=== PATIENT | female | born 1960 | race Two or more races ===

== ENCOUNTER 2021-11-26 14:00 | Outpatient (RCR) | payer BC, SELFPAY | END 2021-12-03 15:18 | disposition home or self-care (01) | LOC: HO.PT 14:00 | PROVIDERS: PCP Internal Medicine; Visit Provider Internal Medicine Rheumatology | DX: M17.0 Bilateral primary osteoarthritis of knee (principal) | CPT/HCPCS: 97110; 97140; 97162; 97530 ==

== ENCOUNTER → 2022-12-12 15:17 | Outpatient (BNVA) | payer BC, SELFPAY | PROVIDERS: PCP Internal Medicine; Visit Provider Student in an Organized Health Care Education/Training Program | DX: Z13.89 Encounter for screening for other disorder (principal) ==

== ENCOUNTER 2022-12-13 11:59 | Emergency (ER) | payer BC, SELFPAY ==
--- NOTE | ~2022-12-13 | XR_ITS ---
EXAMINATION: XR ANKLE, RIGHT XR FOOT, RIGHT CLINICAL INFORMATION: Pain COMPARISON: None TECHNIQUE: 2 views of the right ankle. 3 views of the right foot. FINDINGS: Right ankle: No acute fracture or dislocation. Spurring along the ankle mortise which is congruent. There is corticated ossification at the tip of the lateral malleolus, likely associated with prior trauma. The soft tissues are unremarkable. Right foot: No fracture or dislocation. Alignment maintained. Joint spaces maintained. The soft tissues are unremarkable. Mild hypertrophic spurring at the plantar aponeurosis and Achilles insertion to the calcaneus. XR/XR ankle RT min 3V IMPRESSION: No acute abnormality of the right ankle or foot. Calcaneal spurs.
--- NOTE | ~2022-12-13 | XR_ITS ---
EXAMINATION: XR ANKLE, RIGHT XR FOOT, RIGHT CLINICAL INFORMATION: Pain COMPARISON: None TECHNIQUE: 2 views of the right ankle. 3 views of the right foot. FINDINGS: Right ankle: No acute fracture or dislocation. Spurring along the ankle mortise which is congruent. There is corticated ossification at the tip of the lateral malleolus, likely associated with prior trauma. The soft tissues are unremarkable. Right foot: No fracture or dislocation. Alignment maintained. Joint spaces maintained. The soft tissues are unremarkable. Mild hypertrophic spurring at the plantar aponeurosis and Achilles insertion to the calcaneus. XR/XR foot RT min 3V IMPRESSION: No acute abnormality of the right ankle or foot. Calcaneal spurs.
--- NOTE | ~2022-12-13 | XR_ITS ---
EXAMINATION: CHEST 2 VIEWS CLINICAL INFORMATION: cough dyspnea . COMPARISON: No recent pertinent prior studies are available for comparison. TECHNIQUE: PA and lateral views of the chest obtained. FINDINGS: The lungs are well expanded. No focal infiltrate, effusion, edema, or pneumothorax. Cardiac and mediastinal silhouettes are within normal limits for technique. No acute bony abnormality seen. Degenerative changes in the acromioclavicular joints XR/XR chest 2V IMPRESSION: No evidence of acute disease.
[2022-12-13 12:25] VITALS: BP 135/90; PULSE 97; RESP 18; TEMP 36.8; O2SAT 100; BMI 36.7
--- NOTE | 2022-12-13 12:29 | ED_ITS ---
HPI - General Adult General Chief complaint: Extremity Problem <LOUIE Murrell - Last Filed: 12/20/22 14:26> Stated complaint: Polychondritis Diff Walking <LOUIE Murrell - Last Filed: 12/20/22 14:26> Time Seen by Provider: 12/13/22 22:07 <LOUIE Murrell - Last Filed: 12/20/22 14:26> Related Data Home medications: Home Medications Medication Instructions Recorded Confirmed acetaminophen 325 mg tablet 650 mg PO Q4H PRN 12/11/22 12/12/22 (Tylenol) albuterol sulfate 2.5 mg/3 mL 2.5 mg inhalation Q4-6H PRN 12/11/22 12/12/22 (0.083 %) solution for nebulization albuterol sulfate 90 mcg/actuation 2 puff inhalation Q6H PRN 12/11/22 12/12/22 aerosol inhaler (ProAir HFA) epinephrine 0.3 mg/0.3 mL 0.3 mg IM Q4H PRN 12/11/22 12/12/22 injection, auto-injector (EpiPen) montelukast 10 mg tablet 10 mg PO DAILY 12/11/22 12/12/22 (Singulair) budesonide 160 mcg-glycopyr 9 2 inh inhalation BID 12/12/22 12/12/22 mcg-formot 4.8 mcg/actuation HFA inhaler (Breztri Aerosphere) Previous Rx's Medication Instructions Recorded diclofenac sodium 1 % topical gel 2 g topical QID #100 grams 12/12/22 (Arthritis Pain (diclofenac)) prednisone 20 mg tablet 60 mg PO DAILY #90 tabs 12/12/22 tramadol 50 mg tablet 50 mg PO BID PRN pain #7 tabs 12/13/22 <LOUIE Murrell - Last Filed: 12/20/22 14:26> Allergies/adverse reactions: Allergies Allergy/AdvReac Type Severity Reaction Status Date / Time No Known Allergies Allergy Unverified 12/12/22 15:24 Pt states no known allergy to Allergy Unknown Unknown Uncoded 12/12/22 15:24 <LOUIE Murrell - Last Filed: 12/20/22 14:26> [facility] Past Medical History Medical History: Medical History Asthma Chronic back pain GERD (gastroesophageal reflux disease) Heart palpitations 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 Obesity SAMIRA (obstructive sleep apnea) <LOUIE Murrell - Last Filed: 12/20/22 14:26> Surgical History: Surgical History H/O tubal ligation <LOUIE Murrell - Last Filed: 12/20/22 14:26> Family History Family History: Family History Mother Diabetes Rheumatoid arthritis Father Asthma <LOUIE Murrell - Last Filed: 12/20/22 14:26> Social History Social History: Social History Household Members: Children Alcohol intake: never Patient Tobacco Use Status: Former Tobacco user Current occupational status: employed 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 Please see the patient's hand hose cutter notes on 12/12/2022 in our system that was scanned in. Apparently he ordered multiple labs and imaging yesterday. Plan: Will obtain labs, chest x-ray, COVID/RSV/flu swab an EKG. Patient will be sent to the waiting room to be evaluated in the ED. <LOUIE Murrell - Last Filed: 12/20/22 14:26> Medical Decision Making Lab Data Result Diagrams: 12/13/22 13:35 12/13/22 13:35 <LOUIE Murrell - Last Filed: 12/20/22 14:26> Labs: Lab Results 12/13/22 12/13/22 12/13/22 Range/Units 13:35 13:35 13:35 WBC 9.3 (4.8-10.8) X10*3/uL RBC 4.33 (4.20-5.50) X10*6/uL Hgb 12.6 (12.0-16.0) g/dl Hct 38.3 (37.0-47.0) % MCV 88.5 (80.0-98.0) fL MCH 29.1 (27.0-33.0) pg MCHC 32.9 (31.0-35.0) g/dl RDW 12.5 (11.0-16.0) % Plt Count 287 (160-400) X10*3/uL MPV 10.4 (9.4-12.3) fL Immature Gran % (Auto) 0.2 (0.0-0.4) % Neut % (Auto) 63.2 (45-73) % Lymph % (Auto) 25.3 (20-40) % Shannon % (Auto) 8.4 (2-11) % Eos % (Auto) 2.4 (0-4) % Baso % (Auto) 0.5 (0-2) % Lymph # (Auto) 2.4 (1.2-4.9) X10*3/uL Shannon # (Auto) 0.8 (0.1-1.2) X10*3/uL Eos # (Auto) 0.2 (0.0-0.4) X10*3/uL Baso # (Auto) 0.1 (0.0-0.2) X10*3/uL Abs Immat Gran (auto) 0.02 (0.00-0.03) X10*3/uL Absolute Neuts (auto) 5.9 (2.0-8.3) x10*3/uL Absolute Nucleated RBC 0.000 (0.0-0.012) X10*3/uL Nucleated RBC % (auto) 0.0 (0.0-0.2) /100WBC ESR 34 H (0-20) MM/HR PT (10.0-13.1) SEC INR (0.9-1.1) Sodium 141 (135-145) mmol/L Potassium 3.8 (3.3-5.1) mmol/L Chloride 105 (96-108) mmol/L Carbon Dioxide 29 (22-29) mmol/L Anion Gap 11 L (12-20) BUN 18 H (9-16) mg/dL Creatinine 0.80 (0.5-1.4) mg/dL Estim Creat Clear Calc 76.5 Estimated GFR > 60 Random Glucose 74 (60-115) mg/dL Calcium 9.3 (8.4-10.2) mg/dL Magnesium 2.0 (1.6-2.6) mg/dL Total Bilirubin 0.5 (0.0-1.0) mg/dL AST 21 (5-31) U/L ALT 15 (0-31) U/L Alkaline Phosphatase 109 (39-117) U/L Total Creatine Kinase 184 H (26-140) U/L C-Reactive Protein 1.98 H (< or = 0.50) mg/dL Total Protein 7.3 (6.5-8.0) g/dL Albumin 4.0 (3.5-5.0) g/dL Lipase 44 (8-78) U/L TSH 2.06 (0.32-4.0) uIU/mL 12/13/22 Range/Units 13:35 WBC (4.8-10.8) X10*3/uL RBC (4.20-5.50) X10*6/uL Hgb (12.0-16.0) g/dl Hct (37.0-47.0) % MCV (80.0-98.0) fL MCH (27.0-33.0) pg MCHC (31.0-35.0) g/dl RDW (11.0-16.0) % Plt Count (160-400) X10*3/uL MPV (9.4-12.3) fL Immature Gran % (Auto) (0.0-0.4) % Neut % (Auto) (45-73) % Lymph % (Auto) (20-40) % Shannon % (Auto) (2-11) % Eos % (Auto) (0-4) % Baso % (Auto) (0-2) % Lymph # (Auto) (1.2-4.9) X10*3/uL Shannon # (Auto) (0.1-1.2) X10*3/uL Eos # (Auto) (0.0-0.4) X10*3/uL Baso # (Auto) (0.0-0.2) X10*3/uL Abs Immat Gran (auto) (0.00-0.03) X10*3/uL Absolute Neuts (auto) (2.0-8.3) x10*3/uL Absolute Nucleated RBC (0.0-0.012) X10*3/uL Nucleated RBC % (auto) (0.0-0.2) /100WBC ESR (0-20) MM/HR PT 11.7 (10.0-13.1) SEC INR 1.0 (0.9-1.1) Sodium (135-145) mmol/L Potassium (3.3-5.1) mmol/L Chloride (96-108) mmol/L Carbon Dioxide (22-29) mmol/L Anion Gap (12-20) BUN (9-16) mg/dL Creatinine (0.5-1.4) mg/dL Estim Creat Clear Calc Estimated GFR Random Glucose (60-115) mg/dL Calcium (8.4-10.2) mg/dL Magnesium (1.6-2.6) mg/dL Total Bilirubin (0.0-1.0) mg/dL AST (5-31) U/L ALT (0-31) U/L Alkaline Phosphatase (39-117) U/L Total Creatine Kinase (26-140) U/L C-Reactive Protein (< or = 0.50) mg/dL Total Protein (6.5-8.0) g/dL Albumin (3.5-5.0) g/dL Lipase (8-78) U/L TSH (0.32-4.0) uIU/mL <LOUIE Murrell - Last Filed: 12/20/22 14:26> Lab Results 12/13/22 12/13/22 12/13/22 Range/Units 13:35 13:35 13:35 WBC 9.3 (4.8-10.8) X10*3/uL RBC 4.33 (4.20-5.50) X10*6/uL Hgb 12.6 (12.0-16.0) g/dl Hct 38.3 (37.0-47.0) % MCV 88.5 (80.0-98.0) fL MCH 29.1 (27.0-33.0) pg MCHC 32.9 (31.0-35.0) g/dl RDW 12.5 (11.0-16.0) % Plt Count 287 (160-400) X10*3/uL MPV 10.4 (9.4-12.3) fL Immature Gran % (Auto) 0.2 (0.0-0.4) % Neut % (Auto) 63.2 (45-73) % Lymph % (Auto) 25.3 (20-40) % Shannon % (Auto) 8.4 (2-11) % Eos % (Auto) 2.4 (0-4) % Baso % (Auto) 0.5 (0-2) % Lymph # (Auto) 2.4 (1.2-4.9) X10*3/uL Shannon # (Auto) 0.8 (0.1-1.2) X10*3/uL Eos # (Auto) 0.2 (0.0-0.4) X10*3/uL Baso # (Auto) 0.1 (0.0-0.2) X10*3/uL Abs Immat Gran (auto) 0.02 (0.00-0.03) X10*3/uL Absolute Neuts (auto) 5.9 (2.0-8.3) x10*3/uL Absolute Nucleated RBC 0.000 (0.0-0.012) X10*3/uL Nucleated RBC % (auto) 0.0 (0.0-0.2) /100WBC ESR 34 H (0-20) MM/HR PT (10.0-13.1) SEC INR (0.9-1.1) Sodium 141 (135-145) mmol/L Potassium 3.8 (3.3-5.1) mmol/L Chloride 105 (96-108) mmol/L Carbon Dioxide 29 (22-29) mmol/L Anion Gap 11 L (12-20) BUN 18 H (9-16) mg/dL Creatinine 0.80 (0.5-1.4) mg/dL Estim Creat Clear Calc 76.5 Estimated GFR > 60 Random Glucose 74 (60-115) mg/dL Calcium 9.3 (8.4-10.2) mg/dL Magnesium 2.0 (1.6-2.6) mg/dL Total Bilirubin 0.5 (0.0-1.0) mg/dL AST 21 (5-31) U/L ALT 15 (0-31) U/L Alkaline Phosphatase 109 (39-117) U/L Total Creatine Kinase 184 H (26-140) U/L C-Reactive Protein 1.98 H (< or = 0.50) mg/dL Total Protein 7.3 (6.5-8.0) g/dL Albumin 4.0 (3.5-5.0) g/dL Lipase 44 (8-78) U/L TSH 2.06 (0.32-4.0) uIU/mL 12/13/22 Range/Units 13:35 WBC (4.8-10.8) X10*3/uL RBC (4.20-5.50) X10*6/uL Hgb (12.0-16.0) g/dl Hct (37.0-47.0) % MCV (80.0-98.0) fL MCH (27.0-33.0) pg MCHC (31.0-35.0) g/dl RDW (11.0-16.0) % Plt Count (160-400) X10*3/uL MPV (9.4-12.3) fL Immature Gran % (Auto) (0.0-0.4) % Neut % (Auto) (45-73) % Lymph % (Auto) (20-40) % Shannon % (Auto) (2-11) % Eos % (Auto) (0-4) % Baso % (Auto) (0-2) % Lymph # (Auto) (1.2-4.9) X10*3/uL Shannon # (Auto) (0.1-1.2) X10*3/uL Eos # (Auto) (0.0-0.4) X10*3/uL Baso # (Auto) (0.0-0.2) X10*3/uL Abs Immat Gran (auto) (0.00-0.03) X10*3/uL Absolute Neuts (auto) (2.0-8.3) x10*3/uL Absolute Nucleated RBC (0.0-0.012) X10*3/uL Nucleated RBC % (auto) (0.0-0.2) /100WBC ESR (0-20) MM/HR PT 11.7 (10.0-13.1) SEC INR 1.0 (0.9-1.1) Sodium (135-145) mmol/L Potassium (3.3-5.1) mmol/L Chloride (96-108) mmol/L Carbon Dioxide (22-29) mmol/L Anion Gap (12-20) BUN (9-16) mg/dL Creatinine (0.5-1.4) mg/dL Estim Creat Clear Calc Estimated GFR Random Glucose (60-115) mg/dL Calcium (8.4-10.2) mg/dL Magnesium (1.6-2.6) mg/dL Total Bilirubin (0.0-1.0) mg/dL AST (5-31) U/L ALT (0-31) U/L Alkaline Phosphatase (39-117) U/L Total Creatine Kinase (26-140) U/L C-Reactive Protein (< or = 0.50) mg/dL Total Protein (6.5-8.0) g/dL Albumin (3.5-5.0) g/dL Lipase (8-78) U/L TSH (0.32-4.0) uIU/mL <Cooper Ashford MD - Last Filed: 12/26/22 16:31> Attestation Attending Attestation: I reviewed 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 I agree with the documentation, assessment and plan unless otherwise stated. <Cooper Ashford MD - Last Filed: 12/26/22 16:31> Discharge Plan Discharge Clinical Impression: Ankle pain, right, Relapsing polychondritis of multiple sites <LOUIE Murrell - Last Filed: 12/20/22 14:26> Patient Disposition: Home, Self-Care <LOUIE Murrell - Last Filed: 12/20/22 14:26> Instructions: Arthralgia (ED) <LOUIE Murrell - Last Filed: 12/20/22 14:26> Additional Instructions: At this time, I am recommending that you go ahead and increase your p rednisone to 60 mg daily per your hand hose cutter. In addition, he may take ibuprofen 800 mg 3 times a day. I would recommend taking omeprazole with that as well. For additional pain relief tried Tylenol 1000 mg every 6 hours. I will provide you with a small amount of tramadol for additional pain relief. . Please be aware this may cause you to be drowsy. You have been provided with an Aircast for ankle support. I am also recommending the use of a cane or crutches. <LOUIE Murrell - Last Filed: 12/20/22 14:26> Prescriptions: New tramadol 50 mg tablet 50 mg PO BID PRN (Reason: pain) Qty: 7 0RF No Action albuterol sulfate 2.5 mg /3 mL (0.083 %) solution for nebulization 2.5 mg inhalation Q4-6H PRN montelukast [Singulair] 10 mg tablet 10 mg PO DAILY albuterol sulfate [ProAir HFA] 90 mcg/actuation HFA aerosol inhaler 2 puff inhalation Q6H PRN epinephrine [EpiPen] 0.3 mg/0.3 mL auto-injector 0.3 mg IM Q4H PRN acetaminophen [Tylenol] 325 mg tablet 650 mg PO Q4H PRN Breztri Aerosphere 160-9-4.8 mcg/actuation HFA aerosol inhaler 2 inh inhalation BID prednisone 20 mg tablet 60 mg PO DAILY Qty: 90 1RF diclofenac sodium [Arthritis Pain (diclofenac)] 1 % gel 2 g topical QID Qty: 100 1RF Rx Instructions: apply to single elbow, wrist or hand; for hand includes palm/fingers/back of hand <LOUIE Murrell - Last Filed: 12/20/22 14:26> Referrals: Bertrand Christianson MD [Primary Care Provider] - 5 days <LOUIE Murrell - Last Filed: 12/20/22 14:26> Interventions: ED Discharge Assessment Last Done: 12/13/22 23:14 <LOUIE Murrell - Last Filed: 12/20/22 14:26> Discharge Date/Time: 12/13/22 23:15 <LOUIE Murrell - Last Filed: 12/20/22 14:26>
[2022-12-13 13:41] LABS: MANUAL DIFF FLAG NO
[2022-12-13 13:44] LABS: Basophils Absolute Auto 0.1 X10*3/uL (0.0-0.2); Basophils Percent Auto 0.5 % (0-2); Eosinophils Absolute Auto 0.2 X10*3/uL (0.0-0.4); Eosinophils Percent Auto 2.4 % (0-4); Hematocrit 38.3 % (37.0-47.0); Hemoglobin 12.6 g/dl (12.0-16.0); Imm Gran Abs Auto 0.02 X10*3/uL (0.00-0.03); Imm Gran Pct Auto 0.2 % (0.0-0.4); Lymphocytes Absolute Auto 2.4 X10*3/uL (1.2-4.9); Lymphocytes Percent Auto 25.3 % (20-40); Mean Corpuscular HGB Conc 32.9 g/dl (31.0-35.0); Mean Corpuscular Hemoglobin 29.1 pg (27.0-33.0); Mean Corpuscular Volume 88.5 fL (80.0-98.0); Mean Platelet Volume 10.4 fL (9.4-12.3); Monocytes Absolute Auto 0.8 X10*3/uL (0.1-1.2); Monocytes Percent Auto 8.4 % (2-11); Neutrophils Absolute Auto 5.9 x10*3/uL (2.0-8.3); Neutrophils Percent Auto 63.2 % (45-73); Platelet Count 287 X10*3/uL (160-400); Red Blood Count 4.33 X10*6/uL (4.20-5.50); Red Cell Distribution Width 12.5 % (11.0-16.0); White Blood Count 9.3 X10*3/uL (4.8-10.8)
[2022-12-13 14:07] LABS: Prothrombin Time 11.7 SEC (10.0-13.1)
[2022-12-13 14:13] LABS: Alanine Aminotransferase 15 U/L (0-31); Alkaline Phosphatase 109 U/L (39-117); Anion Gap 11 (12-20); Aspartate Amino Transferase 21 U/L (5-31); Bilirubin Total 0.5 mg/dL (0.0-1.0); Blood Urea Nitrogen 18 mg/dL (9-16); C Reactive Protein 1.98 mg/dL (< or = 0.50); Calcium 9.3 mg/dL (8.4-10.2); Carbon Dioxide 29 mmol/L (22-29); Chloride 105 mmol/L (96-108); Creatinine Clr Calc Pharmacy 76.5; Estimated Glomerular Filt Rate > 60; Glucose Random 74 mg/dL (60-115); Lipase 44 U/L (8-78); Potassium 3.8 mmol/L (3.3-5.1); Sodium 141 mmol/L (135-145); Total Protein 7.3 g/dL (6.5-8.0)
[2022-12-13 14:27] LABS: TSH reflex Free T4 2.06 uIU/mL (0.32-4.0)
[2022-12-13 14:36] LABS: Erythrocyte Sedimentation Rate 34 MM/HR (0-20)
[2022-12-13 22:00] VITALS: BP 128/66; PULSE 69; RESP 16; TEMP 36.3; O2SAT 98
--- NOTE | 2022-12-13 22:27 | ED.GENADULT ---
HPI - General Adult General Chief complaint: Extremity Problem Stated complaint: Polychondritis Diff Walking Time Seen by Provider: 12/13/22 22:07 Source: patient Mode of arrival: ambulatory Limitations: no limitations History of Present Illness HPI narrative: 62-year-old female with a reported history of relapsing polychondritis. Patient is currently under the care of a food aide. She presents today with constellation of symptoms including swelling of bilateral ears, sensation of aspiration and right ankle pain. Symptoms have been progressively getting worse. She is currently on steroids and was recommended to increase her prednisone to 60 mg daily. She has not yet started that. Patient describes her symptoms as moderate to severe. She predominantly comes today because of her right ankle pain. She denies any swelling of the right ankle. She denies any trauma. The pain is located just inferior to bilateral malleoli. The pain is worse with ambulation. It does not radiate. It is not associated with numbness or tingling. She denies any falls, injuries further local trauma. Related Data Home Medications Medication Instructions Recorded Confirmed acetaminophen 325 mg tablet 650 mg PO Q4H PRN 12/11/22 12/12/22 (Tylenol) albuterol sulfate 2.5 mg/3 mL 2.5 mg inhalation Q4-6H PRN 12/11/22 12/12/22 (0.083 %) solution for nebulization albuterol sulfate 90 mcg/actuation 2 puff inhalation Q6H PRN 12/11/22 12/12/22 aerosol inhaler (ProAir HFA) epinephrine 0.3 mg/0.3 mL 0.3 mg IM Q4H PRN 12/11/22 12/12/22 injection, auto-injector (EpiPen) montelukast 10 mg tablet 10 mg PO DAILY 12/11/22 12/12/22 (Singulair) budesonide 160 mcg-glycopyr 9 2 inh inhalation BID 12/12/22 12/12/22 mcg-formot 4.8 mcg/actuation HFA inhaler (Breztri Aerosphere) Previous Rx's Medication Instructions Recorded diclofenac sodium 1 % topical gel 2 g topical QID #100 grams 12/12/22 (Arthritis Pain (diclofenac)) prednisone 20 mg tablet 60 mg PO DAILY #90 tabs 12/12/22 tramadol 50 mg tablet 50 mg PO BID PRN pain #7 tabs 12/13/22 Allergies Allergy/AdvReac Type Severity Reaction Status Date / Time No Known Allergies Allergy Unverified 12/12/22 15:24 Pt states no known allergy to Allergy Unknown Unknown Uncoded 12/12/22 15:24 Review of Systems Review of Systems: CONSTITUTIONAL: Denies weight loss, fever and chills. HEENT: Denies changes in vision and hearing. RESPIRATORY: Denies SOB and cough. CV: Denies palpitations no CP. GI: Denies abdominal pain, nausea, vomiting and diarrhea. : Denies dysuria and urinary frequency. MSK: positive myalgia and joint pain. SKIN: Denies rash and pruritus. NEUROLOGICAL: Denies headache and syncope. PSYCHIATRIC: Denies recent changes in mood. Denies anxiety and depression. 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 Physical Exam ED Vital Signs: Vital Signs - 24 hr 12/13/22 12:25 Temperature 98.2 F Pulse Rate 97 Respiratory Rate 18 Blood Pressure 135/90 H Pulse Oximetry 100 Oxygen Delivery Method Room Air BMI result Body Mass Index 36.7 GEN: Well developed, no acute distress, alert, oriented HEENT: Normocephalic, atraumatic, nose appears normal, no oropharyngeal edema or exudates, bilateral external ear swelling consistent with polychondritis Eyes: Normal to appearance Neck: Supple, no lymphadenopathy Respiratory: Talks in complete sentences, no respiratory distress, clear to auscultation bilaterally Cardiovascular: Regular rate and rhythm, no murmurs rubs or gallops Abdomen: Soft, nontender, nondistended, no guarding, no rebound Back: No CVA tenderness Extremities: No clubbing cyanosis or edema Neurologic: No focal neurologic deficits, cranial nerves 2-12 intact, strength is 5/5 bilaterally, gait normal Skin: No rash Course Course Course Narrative: 62-year-old female presents with generalized pains and aches as well as right ankle pain to the point she is unable to ambulate. She denies any falls or trauma. She does have a reported history of polychondritis. She is currently supposed to be on steroids. On my exam, her lungs are clear to auscultation bilaterally despite a concern for aspiration. She also had right ankle pain which there was no definite tenderness, swelling. She heard pulses were intact as were her in sensation. Patient will have laboratory analysis and x-rays obtained. Reevaluation(s) Reevaluation #1: Labwork and x-rays are complete with the exception of a chest x-ray. There are no significant findings today with the exception of mildly elevated inflammatory markers. I will provide the patient with an air cast on her right ankle to help with stability in ambulation. I have also recommended the use of a cane. She will follow-up with her food aide. She will increase her prednisone to 60 mg daily. She will return for any concerning symptoms. Time: 22:31 Medical Decision Making Medical Decision Making MDM Narrative: 62-year-old female presents with generalized pains and aches as well as right ankle pain to the point she is unable to ambulate. She denies any falls or trauma. She does have a reported history of polychondritis. She is currently supposed to be on steroids. On my exam, her lungs are clear to auscultation bilaterally despite a concern for aspiration. She also had right ankle pain which there was no definite tenderness, swelling. She heard pulses were intact as were her in sensation. Patient will have laboratory analysis and x-rays obtained. Differential Diagnosis Differential Diagnoses: The differential diagnosis associated with the presentation includes (Sprain, strain, polychondritis, inflammatory state, rheumatologic disorder, immune disorder) Right ankle pain, polychondritis Admission/Observation Consideration of admission/observation: Escalation of care including admission/observation considered Lab Data [facility] Lab Attestation statement: I reviewed the patient's lab results. 12/13/22 13:35 12/13/22 13:35 Labs: Lab Results 02/10/23 02/10/23 02/10/23 Range/Units 13:35 13:35 13:35 WBC 9.3 (4.8-10.8) X10*3/uL RBC 4.33 (4.20-5.50) X10*6/uL Hgb 12.6 (12.0-16.0) g/dl Hct 38.3 (37.0-47.0) % MCV 88.5 (80.0-98.0) fL MCH 29.1 (27.0-33.0) pg MCHC 32.9 (31.0-35.0) g/dl RDW 12.5 (11.0-16.0) % Plt Count 287 (160-400) X10*3/uL MPV 10.4 (9.4-12.3) fL Immature Gran % (Auto) 0.2 (0.0-0.4) % Neut % (Auto) 63.2 (45-73) % Lymph % (Auto) 25.3 (20-40) % Person % (Auto) 8.4 (2-11) % Eos % (Auto) 2.4 (0-4) % Baso % (Auto) 0.5 (0-2) % Lymph # (Auto) 2.4 (1.2-4.9) X10*3/uL Person # (Auto) 0.8 (0.1-1.2) X10*3/uL Eos # (Auto) 0.2 (0.0-0.4) X10*3/uL Baso # (Auto) 0.1 (0.0-0.2) X10*3/uL Abs Immat Gran (auto) 0.02 (0.00-0.03) X10*3/uL Absolute Neuts (auto) 5.9 (2.0-8.3) x10*3/uL Absolute Nucleated RBC 0.000 (0.0-0.012) X10*3/uL Nucleated RBC % (auto) 0.0 (0.0-0.2) /100WBC ESR 34 H (0-20) MM/HR PT (10.0-13.1) SEC INR (0.9-1.1) Sodium 141 (135-145) mmol/L Potassium 3.8 (3.3-5.1) mmol/L Chloride 105 (96-108) mmol/L Carbon Dioxide 29 (22-29) mmol/L Anion Gap 11 L (12-20) BUN 18 H (9-16) mg/dL Creatinine 0.80 (0.5-1.4) mg/dL Estim Creat Clear Calc 76.5 Estimated GFR > 60 Random Glucose 74 (60-115) mg/dL Calcium 9.3 (8.4-10.2) mg/dL Magnesium 2.0 (1.6-2.6) mg/dL Total Bilirubin 0.5 (0.0-1.0) mg/dL AST 21 (5-31) U/L ALT 15 (0-31) U/L Alkaline Phosphatase 109 (39-117) U/L Total Creatine Kinase 184 H (26-140) U/L C-Reactive Protein 1.98 H (< or = 0.50) mg/dL Total Protein 7.3 (6.5-8.0) g/dL Albumin 4.0 (3.5-5.0) g/dL Lipase 44 (8-78) U/L TSH 2.06 (0.32-4.0) uIU/mL 12/13/22 Range/Units 13:35 WBC (4.8-10.8) X10*3/uL RBC (4.20-5.50) X10*6/uL Hgb (12.0-16.0) g/dl Hct (37.0-47.0) % MCV (80.0-98.0) fL MCH (27.0-33.0) pg MCHC (31.0-35.0) g/dl RDW (11.0-16.0) % Plt Count (160-400) X10*3/uL MPV (9.4-12.3) fL Immature Gran % (Auto) (0.0-0.4) % Neut % (Auto) (45-73) % Lymph % (Auto) (20-40) % Person % (Auto) (2-11) % Eos % (Auto) (0-4) % Baso % (Auto) (0-2) % Lymph # (Auto) (1.2-4.9) X10*3/uL Person # (Auto) (0.1-1.2) X10*3/uL Eos # (Auto) (0.0-0.4) X10*3/uL Baso # (Auto) (0.0-0.2) X10*3/uL Abs Immat Gran (auto) (0.00-0.03) X10*3/uL Absolute Neuts (auto) (2.0-8.3) x10*3/uL Absolute Nucleated RBC (0.0-0.012) X10*3/uL Nucleated RBC % (auto) (0.0-0.2) /100WBC ESR (0-20) MM/HR PT 11.7 (10.0-13.1) SEC INR 1.0 (0.9-1.1) Sodium (135-145) mmol/L Potassium (3.3-5.1) mmol/L Chloride (96-108) mmol/L Carbon Dioxide (22-29) mmol/L Anion Gap (12-20) BUN (9-16) mg/dL Creatinine (0.5-1.4) mg/dL Estim Creat Clear Calc Estimated GFR Random Glucose (60-115) mg/dL Calcium (8.4-10.2) mg/dL Magnesium (1.6-2.6) mg/dL Total Bilirubin (0.0-1.0) mg/dL AST (5-31) U/L ALT (0-31) U/L Alkaline Phosphatase (39-117) U/L Total Creatine Kinase (26-140) U/L C-Reactive Protein (< or = 0.50) mg/dL Total Protein (6.5-8.0) g/dL Albumin (3.5-5.0) g/dL Lipase (8-78) U/L TSH (0.32-4.0) uIU/mL Independent Interpretation I performed an independent interpretation of an: Plain X-Ray (Right foot and ankle, no acute fracture or dislocation, chest x-ray no acute cardiopulmonary disease) Radiology Impression Discussion of test interpretation with radiology: I have reviewed the radiologist's reading. (IMPRESSION: No acute abnormality of the right ankle or foot. Calcaneal spurs. Dictated By:Caleb Vidal MDSigned By:<Electronically signed by Caleb Vidal MD in [place]>12/13/22 1321) External Record Review External record reviewed: Office record (Rheumatology visit from yesterday) Prescription Management I considered prescription management with: Pain Medication Discharge Plan Discharge Clinical Impression: Ankle pain, right, Relapsing polychondritis of multiple sites Patient Disposition: Home, Self-Care Instructions: Arthralgia (ED) Additional Instructions: At this time, I am recommending that you go ahead and increase your prednisone to 60 mg daily per your food aide. In addition, he may take ibuprofen 800 mg 3 times a day. I would recommend taking omeprazole with that as well. For additional pain relief tried Tylenol 1000 mg every 6 hours. I will provide you with a small amount of tramadol for additional pain relief. . Please be aware this may cause you to be drowsy. You have been provided with an Aircast for ankle support. I am also recommending the use of a cane or crutches. Prescriptions: New tramadol 50 mg tablet 50 mg PO BID PRN (Reason: pain) Qty: 7 0RF No Action albuterol sulfate 2.5 mg /3 mL (0.083 %) solution for nebulization 2.5 mg inhalation Q4-6H PRN montelukast [Singulair] 10 mg tablet 10 mg PO DAILY albuterol sulfate [ProAir HFA] 90 mcg/actuation HFA aerosol inhaler 2 puff inhalation Q6H PRN epinephrine [EpiPen] 0.3 mg/0.3 mL auto-injector 0.3 mg IM Q4H PRN acetaminophen [Tylenol] 325 mg tablet 650 mg PO Q4H PRN Breztri Aerosphere 160-9-4.8 mcg/actuation HFA aerosol inhaler 2 inh inhalation BID prednisone 20 mg tablet 60 mg PO DAILY Qty: 90 1RF diclofenac sodium [Arthritis Pain (diclofenac)] 1 % gel 2 g topical QID Qty: 100 1RF Rx Instructions: apply to single elbow, wrist or hand; for hand includes palm/fingers/back of hand Referrals: Bertrand Christianson MD [Primary Care Provider] - 5 days
--- OUTSIDE RECORDS SUMMARY | 2022-12-13 22:44 | XMS_ITS ---
:1960 Author Organization [facility] Address [address] [place] [address] Care Team Providers Name Role Phone TATI STEVENS Unavailable Unavailable PROBLEMS Type Condition ICD9-CM [id number] Onset Condition SNOMED Cod e Code Code Dates Status Problem Body mass index Z68.37 Active 4433 91360052753 (BMI) 37.0-37.9, adult Problem Body mass index Z68.36 Active 4433 [id number] [BMI] 36.0-36.9, adult Problem Moderate J45.40 Active 594560929 persistent asthma, uncomplicated Problem Mild persistent J45.30 Active 7075 65192 asthma, uncomplicated Problem Morbid (severe) E66.01 Active 2381 98482 obesity due to excess calories Problem Body mass index Z68.38 Active 4433 [id number] (BMI) 38.0-38.9, adult ALLERGIES No Known Allergies ENCOUNTERS Encounter Location Date Diagnosis [address] May, Dietary counseling and [place] surveillance Z71 .3 and [address] Morbid (severe) obesity due to excess calori es E66.01 [facility] [address] [facility] May, [place] [address] [facility] [address] [facility] May, Dietary counseling and [facility] [place] surveillance Z71 .3 and Body [address] mass index [BMI] 36.0-36.9, adult Z68.[address] Apr, Dietary counseling and [place] surveillance Z71 .3 and Body [address] mass index [BMI] 36.0-36.9, adult Z68.[address] Apr, [place], [place] [address] Feb, [place], [place] [address] Jan, Dietary counseling and [place], [place] surveillance Z71 .3 and Body [address] mass index (BMI) 37.0-37.9, adult Z68.[address] Jan, [place], [place] [address] Dec, Dietary counseling and [place], [place] surveillance Z71 .3 and Body [address] mass index (BMI) 38.0-38.9, adult Z68.[address] Dec, [place] [address] Nov, Dietary counseling and [place], [place] surveillance Z71 .3 and [address] Morbid (severe) obesity due to excess calori es E66.[address] Oct, Dietary counseling and [place], [place] surveillance Z71 .3 ; Morbid [address] (severe) obesity due to excess calories E66.01 and Moderate persist ent asthma, uncomplicated J4 5.40 IMMUNIZATIONS No Known Immunizations SOCIAL HISTORY Qualifiers Date Never Smoker REASON FOR REFERRAL FUNCTIONAL STATUS PLAN OF CARE Activity Details Follow Up 4 Weeks Reason: Future Appointment Provider Name:TATI STEVENS , 2022-12-19 03:45:00 PM, [address] [place] [address], , Future Test COMPREHENSIVE METABOLIC PANE L 20211030 Future Test LIPID PANEL 20211030 Future Test TSH WITH REFLEX TO FT4 Future Test HEMOGLOBIN A1C 20211030 Future Test MAGNESIUM 20211030 VITAL SIGNS Temperature 96.1 degrees Fahrenheit 2022-04-25 Temperature 96 degrees Fahrenheit 2022-01-28 Temperature 96.9 degrees Fahrenheit 2021-12-27 Temperature 97.3 degrees Fahrenheit 2021-11-29 Temperature 97.3 degrees Fahrenheit 2021-10-29 Heart Rate 91 /min 2022-05-21 Heart Rate 91 /min 2022-04-25 Heart Rate 96 /min 2022-01-28 Heart Rate 92 /min 2021-12-27 Heart Rate 82 /min 2021-11-29 Heart Rate 95 /min 2021-10-29 Weight 201 lbs 2022-05-21 Weight 200 lbs 2022-04-25 Weight 204 lbs 2022-01-28 Weight 212 lbs 2021-12-27 Weight 217 lbs 2021-11-29 Weight 217 lbs 2021-10-29 BMI 36.76 kg/m2 2022-05-21 BMI 36.58 kg/m2 2022-04-25 BMI 37.31 kg/m2 2022-01-28 BMI 38.77 kg/m2 2021-12-27 BMI 39.69 kg/m2 2021-11-29 BMI 39.69 kg/m2 2021-10-29 Height 62 in 2022-05-21 Height 62 in 2022-04-25 Height 62 in 2022-01-28 Height 62 in 2021-12-27 Height 5'2 in 2021-11-29 Height 5'2 in 2021-10-29 Oximetry 98 % 2022-05-21 Oximetry 99 % 2022-04-25 Oximetry 98 % 2022-01-28 Oximetry 99 % 2021-12-27 Oximetry 97 % 2021-11-29 Oximetry 97 % 2021-10-29 Blood pressure systolic 130 mm Hg 2022-05-21 Blood pressure diastolic 86 mm Hg 2022-05-21 MEDICATIONS Medication Instructions Dosage Frequency Start End Date Duration Stat us Date Symbicort Inhalation Once 2 puffs 24h Active 80-4.5 MCG/ACT a day Meloxicam 10 MG Orally Once a 1 capsule 24h Active day Singulair 10 MG Orally Once a 1 tablet 24h A ctive day Albuterol Inhalation every 1 puff as 4h Act yancy Sulfate 108 (90 4 hrs needed Base) MCG/ACT Qsymia 3.75-23 Orally Once a 1 capsule 24h May, 14 days A ctive MG day 2021 predniSONE 10 Orally Once a 1 tablet 24h Act yancy MG day Qsymia 7.5-46 Orally Once a 1 capsule 24h May, 30 days Ac tive MG day 2021 Phentermine HCl Orally Once a 1 capsule 24h May, 28 days Active 15 MG day 2021 PROCEDURES Procedure Date Ordered Result Body Site ELECTROCARDIOGRAM, COMPLETE Oct 29, 2021 P/M SHOE CASER, INDIV 30MIN Oct 29, 2021 RESULTS No Results REASON FOR VISIT Refill, Refill, wm f/up, wm f/u, refill, wm f/u, FYI, wm f/up, F/U obesity, wm consult Insurance Providers [facility] Member Patient Patient Patient Patient Patient Subscriber Subscriber Subscriber Group Insurance Plan Plan Plan Plan ID Relationship Address Phone Name Date of ID Name Date of No Type Insurance Insurance Insurance Coverage to Subscriber Address Phone Name Dates BCBS of [phone] BCBS of self [place] [id number] [facility] [id number] [facility] [address] [facility] [address]
== END 2022-12-13 23:15 | disposition home or self-care (01) ==
PROVIDERS: Physician Assistant Medical; Emergency Provider Emergency Medicine; PCP Internal Medicine
DX: M25.571 Pain in right ankle and joints of right foot (principal); M94.8X7 Other specified disorders of cartilage, ankle and foot; R26.2 Difficulty in walking, not elsewhere classified; Z79.899 Other long term (current) drug therapy; Z87.891 Personal history of nicotine dependence
CPT/HCPCS: 36415; 71046; 73610; 73630; 80053; 82550; 83690; 83735; 84443; 85025; 85610; 85652; 86140; 99284

== ENCOUNTER → 2022-12-20 13:52 | Outpatient (REF) | payer BC, SELFPAY ==
--- NOTE | 2022-12-20 13:55 | CA_ITS ---
Transthoracic Echocardiogram Patient (Last, First, Middle): Ryne Grant, Gender: Female Date of : 1960 Age: 62 Procedure Date: 12/20/2022 Procedure Type: Transthoracic Echocardiogram Location: OP Height: 157.48 cm Weight: 92.99 kg BSA: 1.93 m2 Heart Rate: bpm BP: 130 / 70 mmHg Rigging Helper: TO Referring MD: Sienna Alan MD Symptoms: I42.9 - Cardiomyopathy, unspecified Study Quality: Fair Conclusions: - Normal left ventricular size and systolic function. The visually estimated ejection fraction is between 60-65%. - Normal right ventricular cavity size and systolic function. Findings Left Ventricle Normal left ventricular size and systolic function. The visually estimated ejection fraction is between 60-65%. There is no evidence of regional wall motion abnormalities. Diastolic function is normal for age. There is mild septal asymmetric hypertrophy. Right Ventricle Normal right ventricular cavity size and systolic function. Atria The left atrium is normal in size. The right atrium is normal in size. Aortic Valve Normal aortic valve structure and function. There is no aortic valve stenosis. There is no aortic valve regurgitation. Mitral Valve Normal mitral valve structure and function. There is no mitral valve regurgitation. There is no mitral valve stenosis. Pulmonic Valve The pulmonic valve is likely normal. Tricuspid Valve Normal tricuspid valve structure. There is no tricuspid valve regurgitation. Tricuspid regurgitation envelope is inadequate for calculation of right ventricular systolic pressure. Normal right atrial pressure. Great Vessels All visible segments of the aorta are normal in size. The visualized portions of the pulmonary artery and branches are normal. Venous The inferior vena cava is normal in size and collapses greater than 50% with inspiration. Pericardium/Pleural There is no evidence of pericardial effusion. Prior Study Comparison No prior study available for comparison. Measurements 2D Linear Measurements IVSd: 1.03 0.6-0.9/0.6-1.0 cm LVIDd: 4.26 3.9-5.3/4.2-5.9 cm LVIDd Index: 2.21 2.4-3.2/2.2-3.1 cm/m2 LVIDs: 2.91 2.0-3.6 cm LVPWd: 0.79 0.7-1.1 cm LA Diam: 3.00 2.7-3.8/3.0-4.0 cm LAIDs Index: 1.55 1.5-2.3 cm/m2 LV Mass: 153.81 67-162/88-224 g LV Mass Index: 79.69 43-95/49-115 g/m2 LVOT Diam: 2.00 3.0+(-)1.3 cm 2D Systolic Function EF 4C: 63.00 >55% EF 2C: 61.30 >55% EF BiP: 62.80 >55% Mitral Valve MV Pk E: 0.90 MV PK A: 1.03 MV Decel Time: 202.00 E/A: 0.90 E'Lateral: 12.00 E'Medial: 10.70 E/E' Med: 8.40 E/E' Lat: 7.50 PHT: 59.00 MVA PHT: 3.73 Decel [place]: 4.46 Aortic Valve AoV Pk [place]: 1.72 AoV Mn [place]: 1.21 AoV VTI: 0.35 AoV Pk Grad: 12.00 Aov Mn Grad: 6.00 THA Cont.VTI: 2.08 LVOT LVOT Pk [place]: 1.04 LVOT Mn [place]: 0.78 LVOT VTI: 0.23 LVOT Pk Grad: 4.00 LVOT Mn Grad: 3.00 LVOT Diam: 2.00 LVOT Area: 3.14 Diastolic Function MV Pk E: 0.90 MV Pk A: 1.03 E/A: 0.90 E'Medial: 10.70 E/E' Med: 8.40 E' Laterial: 12.00 E/E' Lat: 7.50 Right Ventricle TAPSE (mm): 24.80 TVS' [place]: 17.70 Tricuspid Valve RA Press: 3.00 Great Vessels Aorta Sinus of Valsalva: 3.03 2.0-3.[address] [place]: 2.22 1.7-3.4 cm Ao Asc: 3.00 2.1-3.4 cm Updated in Other Vendor System with Status of Final Salvador Swanson MD electronically signed on 12/21/2022 5:11:42 PM with status of Final
== END ==
LOC: HO.CARD 13:52
PROVIDERS: Visit Provider Student in an Organized Health Care Education/Training Program
DX: I42.9 Cardiomyopathy, unspecified (principal)
CPT/HCPCS: 93306

== ENCOUNTER 2022-12-30 13:29 | Outpatient (REF) | payer BC, SELFPAY ==
--- NOTE | ~2022-12-30 | CT_ITS ---
EXAMINATION: CT CHEST CLINICAL INFORMATION: M94.1 - Relapsing polychondritis COMPARISON: Chest radiographs 12/13/2022 TECHNIQUE: Multidetector volumetric CT imaging of the chest is performed in the axial plane without contrast. Additional high resolution images are obtained through the upper, mid, and lower zones. Additional 2D reformatted images and additional 3D maximum intensity projection MIP images are generated on the CT workstation and uploaded to PACS. This CT examination was performed using dose optimization techniques as appropriate, variously including the following: *Automated exposure control *Adjustment of mA and/or kV according to patient size (this includes techniques or standardized protocols for targeted exams where dose is matched to indication/reason for exam; i.e. extremities or head) *Use of iterative reconstruction technique DLP: 235 mGy-cm FINDINGS: LUNGS: There is no tracheal, bronchial, or bronchial wall thickening. No tracheal bronchial stenosis or bronchiectasis. No lobar or segmental airspace consolidation or groundglass opacity. No interstitial fibrotic changes. There is a solitary solid right nodule abutting the lateral aspect right oblique fissure with average dimension under 6 mm (series 8/120, coronal 22, sagittal 93). The location and shape may suggest intraparenchymal node. There are no other nodules. MEDIASTINUM: No hilar or mediastinal adenopathy. Heart size normal. No pericardial effusion. Thoracic aorta normal in caliber. CORONARY ARTERY CALCIFICATION: None visualized on this study. PLEURA: There is no pleural effusion. No pleural mass or thickening. AXILLA: No lymphadenopathy. UPPER ABDOMEN: Unremarkable OSSEOUS STRUCTURES: No acute bony abnormality. There are scattered degenerative changes mid and lower thoracic spine. CT/CT chest wo con - High Res IMPRESSION: -Airways unremarkable. No wall thickening or stenosis or bronchiectasis. -Solitary solid nodule under 6 mm abutting the right oblique fissure. The location and shape may suggest intraparenchymal node. Fleischner guidelines below. -Lungs otherwise clear. No interstitial fibrotic changes, infiltrate, or effusion. Reference: The Fleischner Society recommendations for management of incidentally detected pulmonary nodules in adults age 35 and greater are based on average nodule size and patient risk category. The recommendations do not apply to lung cancer screening, patients with immunosuppression, or patients with known primary cancer. Single solid nodule average size < 6 mm: Low Risk Patient: No routine follow-up. High Risk Patient: Optional CT at 12 months. Certain patients at high risk with suspicious nodule morphology, upper lobe location, or both may warrant 12-month follow-up.
== END 2022-12-30 13:30 | disposition home or self-care (01) ==
LOC: HO.CT 13:29
PROVIDERS: PCP Internal Medicine; Visit Provider Student in an Organized Health Care Education/Training Program
DX: M94.1 Relapsing polychondritis (principal)
CPT/HCPCS: 71250

== ENCOUNTER 2023-01-10 14:36 | Outpatient (REF) | payer BC, SELFPAY ==
[2023-01-10 15:11] LABS: MANUAL DIFF FLAG NO
[2023-01-10 15:52] LABS: Appearance Urine Turbid; Color Urine Yellow; Glucose Urine UA Negative (Negative); Leukocyte Esterase Urine Trace (Negative); Nitrite Urine Negative (Negative); Specific Gravity - Urine >= 1.030 (1.005-1.025); UMIC TRIGGER UA YES; Urine Blood Negative (Negative); Urine Ketones Trace mg/dL (Negative); Urine Protein Negative (Neg-Trace)
[2023-01-10 15:54] LABS: Basophils Percent Auto 0.2 % (0-2); Hematocrit 36.7 % (37.0-47.0); Hemoglobin 12.3 g/dl (12.0-16.0); Imm Gran Abs Auto 0.09 X10*3/uL (0.00-0.03); Imm Gran Pct Auto 0.6 % (0.0-0.4); Lymphocytes Absolute Auto 1.2 X10*3/uL (1.2-4.9); Lymphocytes Percent Auto 8.4 % (20-40); Mean Corpuscular HGB Conc 33.5 g/dl (31.0-35.0); Mean Corpuscular Hemoglobin 29.9 pg (27.0-33.0); Mean Corpuscular Volume 89.3 fL (80.0-98.0); Mean Platelet Volume 11.6 fL (9.4-12.3); Monocytes Absolute Auto 0.7 X10*3/uL (0.1-1.2); Monocytes Percent Auto 5.1 % (2-11); Neutrophils Absolute Auto 12.6 x10*3/uL (2.0-8.3); Neutrophils Percent Auto 85.7 % (45-73); Platelet Count 314 X10*3/uL (160-400); Red Blood Count 4.11 X10*6/uL (4.20-5.50); White Blood Count 14.7 X10*3/uL (4.8-10.8)
[2023-01-10 16:04] LABS: Bacteria Urine 2+ (None Seen); Hyaline Casts Urine 0-2 /LPF (0-2); Squamous Epithelial Cell Urine >20 /HPF (0-2)
[2023-01-10 16:09] LABS: Estimated Average Glucose 105 mg/dL; Hemoglobin A1c % 5.3 %
[2023-01-10 16:19] LABS: Creatinine Urine 260.59 mg/dL; Protein/Creatinine Ratio, Ur 0.05 (<0.2); Total Protein Urine Random 13 mg/dL (<12)
[2023-01-10 16:32] LABS: Alanine Aminotransferase 23 U/L (0-31); Alkaline Phosphatase 117 U/L (39-117); Anion Gap 12 (12-20); Aspartate Amino Transferase 22 U/L (5-31); Bilirubin Total 0.3 mg/dL (0.0-1.0); Blood Urea Nitrogen 20 mg/dL (9-16); C Reactive Protein 1.02 mg/dL (< or = 0.50); Calcium 9.2 mg/dL (8.4-10.2); Carbon Dioxide 27 mmol/L (22-29); Chloride 107 mmol/L (96-108); Estimated Glomerular Filt Rate > 60; Glucose Random 112 mg/dL (60-115); Potassium 4.2 mmol/L (3.3-5.1); Sodium 142 mmol/L (135-145); Total Protein 7.3 g/dL (6.5-8.0); Uric Acid 4.2 mg/dL (2.4-5.7)
[2023-01-10 16:34] LABS: Rheumatoid Factor < 13.0 IU/mL (<15.0)
[2023-01-10 16:41] LABS: Erythrocyte Sedimentation Rate 31 MM/HR (0-20)
[2023-01-10 16:46] LABS: TSH reflex Free T4 0.22 uIU/mL (0.32-4.0)
[2023-01-10 17:49] LABS: Free T4 (Free Thyroxine) 0.91 ng/dL (0.71-1.85)
[2023-01-12 20:14] LABS: TS Negative Control Passed; TS Panel A 0; TS Panel B 1; TS Positive Control Passed; TSpotTB Negative (Negative)
[2023-01-13 04:36] LABS: HBS Num1 > 1000.00 mIU/mL (0-7.99); HBc Num1 9.69 S/CO (0.00-0.79); HBsAGNum1 0.29 S/CO (0.00-0.99); Hepatitis A Antibody IgM 0.19 Index (0-0.79); Hepatitis B Surface Antigen Negative (Negative); ~HepC Num1 0.19 S/CO (0.00-0.79); ~Hepatitis A Antibody IgM Nonreactive (Nonreactive); ~Hepatitis B Surface Antibody REACTIVE (Nonreactive); ~Hepatitis C Antibody Nonreactive (Nonreactive)
[2023-01-13 05:30] LABS: HBc Num2 9.65 S/CO; HBc Num3 9.14 S/CO; Hepatitis B Core Antibody Reactive (Nonreactive)
[2023-01-13 15:28] LABS: Anti Nuclear Antibody Screen NEGATIVE (NEGATIVE)
[2023-01-13 21:24] LABS: Anti DNA DS Antibody <1 IU/mL; Antibody to SS-A Antigen <1.0 NEG AI (<1.0 NEG); Antibody to SS-B Antigen <1.0 NEG AI (<1.0 NEG); Myeloperoxidase Antibody <1.0 AI; Proteinase 3 PR3 Antibodies <1.0 AI; SM/Ribonucleoprotein Ab <1.0 NEG AI (<1.0 NEG); Smith Protein <1.0 NEG AI (<1.0 NEG)
[2023-01-14 16:39] LABS: Cyclic Citrullinated Peptide <16 UNITS
[2023-01-15 08:33] LABS: Complement C3 151 mg/dL (83-193)
[2023-01-15 13:13] LABS: DNAds, Crithidia Antibody Negative (Negative)
[2023-01-15 16:43] LABS: IgA 421 mg/dL (70-320); IgG 1752 mg/dL (600-1540); IgM 185 mg/dL (50-300)
[2023-01-15 17:18] LABS: Prot Elec - Alpha1 0.3 g/dL (0.2-0.3); Prot Elec - Alpha2 0.7 g/dL (0.5-0.9); Prot Elec - Beta 1 0.5 g/dL (0.4-0.6); Prot Elec - Beta 2 0.5 g/dL (0.2-0.5); Prot Elec - Gamma 1.4 g/dL (0.8-1.7); Prot Elec - Total Protein 7.3 g/dL (6.1-8.1)
[2023-01-16 05:23] LABS: Beta-2 Glycoprotein IgA 3.9 U/mL (<20.0); Beta-2 Glycoprotein IgG <2.0 U/mL (<20.0); Beta-2 Glycoprotein IgM <2.0 U/mL (<20.0)
[2023-01-16 07:53] LABS: DRVVT 1:1 Mix NOT CORRECTED (CORRECTED); DRVVT 1:1 Mix Interpretation Positive; DRVVT Confirmation Positive (Negative); PTT (LAC) Screen 29 sec (<=40)
[2023-01-16 14:28] LABS: Angiotensin Converting Enzyme 24.8 U/L (9-67)
[2023-01-16 22:39] LABS: Vitamin D 25-OH, D2 <4 ng/mL; Vitamin D 25-OH, D3 26 ng/mL; Vitamin D 25-OH, Total 26 ng/mL (30-100)
[2023-01-17 13:29] LABS: Centromere Protein A Ab <11 SI (<11); Centromere Protein B Ab <11 SI (<11); Fibrillarin Ab <11 SI (<11); PM SCL 100 Ab <11 SI (<11); PM SCL 75 Ab <11 SI (<11); RNA Polymerase III RP11 Ab <11 SI (<11); RNA Polymerase III RP155 Ab <11 SI (<11); SCL-70 Extractable Nuclear Ab <11 SI (<11); Th-To Ab <11 SI (<11); U1 SNRNP RNP 70KD <11 SI (<11); U1 SNRNP RNP A <11 SI (<11); U1 SNRNP RNP C <11 SI (<11)
[2023-01-17 20:53] LABS: Glucose-6-Phosphate Dehydrogen 19.1 U/g Hgb (7.0-20.5)
[2023-01-18 05:13] LABS: Lysozyme, Serum 4.5 mcg/mL (5.0-11.0)
[2023-01-18 14:43] LABS: TPMT Activity 16
[2023-01-26 16:08] LABS: Cardiolipin IgG Ab <2.0 GPL-U/mL (<20.0); Cardiolipin IgM Ab <2.0 MPL-U/mL (<20.0)
== END 2023-01-10 14:37 | disposition home or self-care (01) ==
LOC: HO.LAB 14:36
PROVIDERS: PCP Internal Medicine; Visit Provider Student in an Organized Health Care Education/Training Program
DX: R53.83 Other fatigue (principal); M25.571 Pain in right ankle and joints of right foot; M32.9 Systemic lupus erythematosus, unspecified; M34.9 Systemic sclerosis, unspecified; I77.6 Arteritis, unspecified; D86.9 Sarcoidosis, unspecified; D68.61 Antiphospholipid syndrome; D75.A Glucose-6-phosphate dehydrogenase (G6PD) deficiency without anemia; Z51.81 Encounter for therapeutic drug level monitoring; Z13.21 Encounter for screening for nutritional disorder; Z11.7 Encounter for testing for latent tuberculosis infection; Z11.59 Encounter for screening for other viral diseases; Z13.1 Encounter for screening for diabetes mellitus; Z79.624 Long term (current) use of inhibitors of nucleotide synthesis; Z20.2 Contact with and (suspected) exposure to infections with a predominantly sexual mode of transmission
CPT/HCPCS: 36415; 80053; 81001; 82164; 82306; 82550; 82595; 82657; 82784; 82955; 83036; 84156; 84165; 84182; 84439; 84443; 84550; 85025; 85549; 85597; 85613; 85652; 85730; 86021; 86038; 86039; 86140; 86146; 86147; 86160; 86200; 86225; 86235; 86255; 86334; 86431; 86481; 86704; 86706; 86709; 86803; 87340

== ENCOUNTER → 2023-02-07 14:55 | Outpatient (BNVA) | payer BC, SELFPAY | PROVIDERS: PCP Internal Medicine; Visit Provider Student in an Organized Health Care Education/Training Program | DX: Z31.89 Encounter for other procreative management (principal) ==

== ENCOUNTER 2023-04-02 10:24 | Outpatient (REF) | payer BC, SELFPAY ==
--- NOTE | 2023-04-02 09:45 | EMG_ITS ---
Please see scanned EMG / Nerve Conduction Report. MTDD
== END 2023-04-02 10:25 | disposition home or self-care (01) ==
LOC: HO.NEURO 10:24
PROVIDERS: PCP Internal Medicine; Visit Provider Student in an Organized Health Care Education/Training Program
DX: G57.90 Unspecified mononeuropathy of unspecified lower limb (principal); M79.604 Pain in right leg; M79.605 Pain in left leg
CPT/HCPCS: 95885; 95911

== ENCOUNTER 2023-04-29 15:01 | Outpatient (REF) | payer BC, SELFPAY ==
[2023-04-29 16:20] LABS: MANUAL DIFF FLAG NO
[2023-04-29 16:27] LABS: Basophils Percent Auto 0.3 % (0-2); Eosinophils Absolute Auto 0.1 X10*3/uL (0.0-0.4); Eosinophils Percent Auto 0.6 % (0-4); Hematocrit 36.7 % (37.0-47.0); Hemoglobin 12.2 g/dl (12.0-16.0); Imm Gran Abs Auto 0.09 X10*3/uL (0.00-0.03); Imm Gran Pct Auto 0.6 % (0.0-0.4); Lymphocytes Absolute Auto 3.7 X10*3/uL (1.2-4.9); Lymphocytes Percent Auto 24.6 % (20-40); Mean Corpuscular HGB Conc 33.2 g/dl (31.0-35.0); Mean Corpuscular Hemoglobin 29.6 pg (27.0-33.0); Mean Corpuscular Volume 89.1 fL (80.0-98.0); Mean Platelet Volume 10.3 fL (9.4-12.3); Monocytes Absolute Auto 1.3 X10*3/uL (0.1-1.2); Monocytes Percent Auto 8.7 % (2-11); Neutrophils Absolute Auto 9.8 x10*3/uL (2.0-8.3); Neutrophils Percent Auto 65.2 % (45-73); Platelet Count 323 X10*3/uL (160-400); Red Blood Count 4.12 X10*6/uL (4.20-5.50)
[2023-04-29 17:09] LABS: Erythrocyte Sedimentation Rate 20 MM/HR (0-20)
[2023-04-29 17:45] LABS: D Dimer High Sensitivity 296 NG/ML
[2023-04-29 19:01] LABS: Anion Gap 12 (12-20); Blood Urea Nitrogen 17 mg/dL (9-16); Calcium 9.6 mg/dL (8.4-10.2); Carbon Dioxide 27 mmol/L (22-29); Chloride 106 mmol/L (96-108); Estimated Glomerular Filt Rate > 60; Glucose Random 77 mg/dL (60-115); Potassium 3.3 mmol/L (3.3-5.1); Sodium 142 mmol/L (135-145)
[2023-04-29 19:08] LABS: Troponin-I High Sensitivity 3.7 ng/L (<3.5-17.0)
== END 2023-04-29 15:02 | disposition home or self-care (01) ==
LOC: HO.LAB 15:01
PROVIDERS: PCP Internal Medicine; Visit Provider Hospitalist
DX: R06.02 Shortness of breath (principal); R00.0 Tachycardia, unspecified; R78.89 Finding of other specified substances, not normally found in blood; M94.1 Relapsing polychondritis; J45.909 Unspecified asthma, uncomplicated
CPT/HCPCS: 36415; 80048; 82785; 84484; 85025; 85379; 85652; 86003; 94618

== ENCOUNTER 2023-05-02 11:27 | Outpatient (REF) | payer BC, SELFPAY ==
--- NOTE | ~2023-05-02 | CT_ITS ---
EXAMINATION: CT ANGIOGRAM OF THE CHEST WITH AND WITHOUT CONTRAST (CT PULMONARY ANGIOGRAM FOR PE) CLINICAL INFORMATION: Reason for Exam R00.0 - Tachycardia, unspecified COMPARISON: Chest CT from 12/30/2022 TECHNIQUE: Prior to contrast administration, noncontrast localization images were obtained. Subsequently, multidetector volumetric imaging was performed from the thoracic inlet to below the diaphragms following the administration of 65 mL Omnipaque 350 intravenous contrast. No contrast reaction reported. Sagittal, coronal, and MIP oblique sagittal reformatted images were obtained on the CT workstation, uploaded to PACS, and reviewed. This CT examination was performed using dose optimization techniques as appropriate, variously including the following: *Automated exposure control *Adjustment of mA and/or kV according to patient size (this includes techniques or standardized protocols for targeted exams where dose is matched to indication/reason for exam; i.e. extremities or head) *Use of iterative reconstruction technique DLP: Total exam dose-length product 153 mGy-cm FINDINGS: LUNGS AND PLEURA: The bronchial schwab are thickened within both lungs. Lungs are well expanded. The mosaic attenuation of the parenchyma suggests air trapping phenomenon secondary. No consolidation, pleural effusion or pneumothorax. QUALITY OF STUDY/CONTRAST BOLUS: Satisfactory. PULMONARY ARTERIES: The pulmonary arteries are normal in size. No embolic filling defects within the main, lobar or segmental vessels. OTHER CARDIOVASCULAR: The heart size is normal. No pericardial effusion. Thoracic aorta has normal contour and caliber; no aneurysm or dissection. MEDIASTINUM/LOWER NECK: No mediastinal mass. The visualized portion of the thyroid gland is unremarkable. The esophagus is normal. LYMPHATICS: No pathologic sized axillary, hilar or mediastinal lymph nodes. UPPER ABDOMEN: Unremarkable. OSSEOUS STRUCTURES: Multilevel discovertebral degenerative change of the thoracic spine. The thoracic vertebra have normal height and alignment. No acute or suspicious osseous abnormality. CT/CT angio chest PE protocol IMPRESSION: * No evidence of pulmonary embolism. * The thickening of bronchial schwab could be a manifestation of reactive airway disease, asthma or bronchitis. No pneumonia. The mosaic attenuation the lungs is consistent with air trapping phenomenon as a sequela of airway inflammation.
[2023-05-02 12:04] LABS: MANUAL DIFF FLAG NO
[2023-05-02 12:31] LABS: Basophils Percent Auto 0.3 % (0-2); Eosinophils Absolute Auto 0.1 X10*3/uL (0.0-0.4); Eosinophils Percent Auto 0.8 % (0-4); Hematocrit 37.3 % (37.0-47.0); Hemoglobin 12.2 g/dl (12.0-16.0); Imm Gran Abs Auto 0.11 X10*3/uL (0.00-0.03); Imm Gran Pct Auto 0.8 % (0.0-0.4); Lymphocytes Absolute Auto 3.4 X10*3/uL (1.2-4.9); Mean Corpuscular HGB Conc 32.7 g/dl (31.0-35.0); Mean Corpuscular Hemoglobin 29.5 pg (27.0-33.0); Mean Corpuscular Volume 90.1 fL (80.0-98.0); Mean Platelet Volume 10.6 fL (9.4-12.3); Neutrophils Absolute Auto 8.4 x10*3/uL (2.0-8.3); Neutrophils Percent Auto 64.1 % (45-73); Platelet Count 292 X10*3/uL (160-400); Red Blood Count 4.14 X10*6/uL (4.20-5.50); Red Cell Distribution Width 13.2 % (11.0-16.0); White Blood Count 13.1 X10*3/uL (4.8-10.8)
[2023-05-02 13:00] LABS: Alanine Aminotransferase 19 U/L (0-31); Albumin Level 3.5 g/dL (3.5-5.0); Alkaline Phosphatase 75 U/L (39-117); Anion Gap 10 (12-20); Aspartate Amino Transferase 17 U/L (5-31); Bilirubin Total 0.4 mg/dL (0.0-1.0); Blood Urea Nitrogen 19 mg/dL (9-16); Calcium 9.2 mg/dL (8.4-10.2); Carbon Dioxide 29 mmol/L (22-29); Chloride 104 mmol/L (96-108); Estimated Glomerular Filt Rate > 60; Glucose Random 81 mg/dL (60-115); Potassium 3.2 mmol/L (3.3-5.1); Sodium 140 mmol/L (135-145); Total Protein 6.6 g/dL (6.5-8.0)
[2023-05-02 13:12] LABS: Erythrocyte Sedimentation Rate 16 MM/HR (0-20)
[2023-05-05 19:54] LABS: Immunoglobulin E 139 kU/L (<OR=114)
[2023-05-06 15:59] LABS: Glucose-6-Phosphate Dehydrogen 17.6 U/g Hgb (7.0-20.5)
== END 2023-05-02 11:28 | disposition home or self-care (01) ==
LOC: HO.CT 11:27
PROVIDERS: Student in an Organized Health Care Education/Training Program; Visit Provider Hospitalist
DX: R00.0 Tachycardia, unspecified (principal); R06.02 Shortness of breath; R78.89 Finding of other specified substances, not normally found in blood; Z79.631 Long term (current) use of antimetabolite agent; Z79.899 Other long term (current) drug therapy
CPT/HCPCS: 36415; 71275; 80053; 82785; 82955; 85025; 85652; 86140

== ENCOUNTER 2023-05-13 09:32 | Outpatient (AMB) | payer BC, SELFPAY ==
[2023-05-13 09:36] VITALS: BP 118/82; PULSE 82; TEMP 36.1; O2SAT 98; BMI 39.6
--- NOTE | 2023-05-13 09:36 | MHC.OFFVIS ---
Intake Vital Signs 05/13/23 09:36 Height 5 ft 2 in Weight 216 lb 7.903 oz BMI 39.6 BP 118/82 Blood Pressure Location Rt brachial Position Supine Pulse 82 Temp 97.0 F Temp Source Skin Pulse Oximetry (%) 98 Intake Visit Reasons: Polichondritis/flare Intake Note: Pt seen today for polichondritis/ flare up. She states the pain is so severe she has to lay flat to help relieve pressure/pain. Pain is interfering with job duties. States she saw weight management doctor yesterday and was told he has a lot of inflammation that's causing her pain. Stave Jointer Required: No Accompanied by: Self / Same As Patient Allergies No Known Allergies Allergy (Unverified 05/13/23 09:40) Pt states no known allergy to Allergy (Unknown, Uncoded 05/13/23 09:40) Unknown HPI HPI Comments History of Present Illness Details The patient presents urgently today complaining of chest pain. She was recently diagnosed with relapsing polychondritis. She is on prednisone at 20 mg daily presently. She also gives a history of asthma and was doing better before the Nucala prescription was denied by her insurance. She is on inhalers for the asthma. She is a patient of Dr. Alan who aimed to start her on methotrexate about 3 months ago. The patient was reluctant to do so because she was worried about the potential for side effects. She did see Pulmonary a few weeks ago and they convinced her to start the methotrexate. She has only taken 2 weeks worth of methotrexate so far and only had 1 week of the 20 mg dosage. This particular pain she says started about 7 or 8 days ago. It has been gradually getting worse. It is in the sternal area with radiation to the epigastrium and along the rib margins anteriorly. It is worse with deep breaths and with movement. She feels a knot like sensation in the epigastrium. 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 There is some nausea associated with her abdominal component. She does not have any vomiting or anorexia. There has been no diarrhea, hematochezia, or constipation. She has more chronic pains in the back from previous injuries. [facility] Medical History (Updated 05/13/23 @ 13:42 by Varun Phillips MD) Asthma Chronic back pain GERD (gastroesophageal reflux disease) Heart palpitations care home systemic steroid user Obesity SAMIRA (obstructive sleep apnea) Tachycardia Surgical History H/O tubal ligation Family History Mother Diabetes Rheumatoid arthritis Father Asthma Social History Household Members: Children Alcohol intake: never Patient Tobacco Use Status: Former Tobacco user Smoked in Last 30 Days: No Use of substances other than those prescribed or required for medical reasons: No Advance Directives: No Advance Directives Information Provided: Yes Current occupational status: employed 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 Negative for appetite change, fever, chills, malaise and fatigue Eyes Details: Negative for vision change, dry eyes,headaches and dizziness ENT Details: She had some external ear inflammation previously that has not returned after the prednisone was increased. Negative for hearing change, tinnitus, oral ulcer, nose bleeds and oral dryness. Card Details: Chest pains as noted above. Negative orthopnea, palpitations, edema and syncope Resp Details: Some exertional dyspnea, not appreciably be different than baseline she says. Negative for cough and wheezing GI Details: Epigastric pains as noted above. Negative indigestion/heartburn, nausea, bowel changes, diarrhea, constipation and bloody stool. Details: Negative for dysuria, hematuria, nocturia, decreased force/flow and genital discharge Skin/Breast Details: Negative for itching, rash, hives, Raynaud's symptoms, sun sensitivity, and skin cancer Neuro Details: Negative for epilepsy, palsy, stroke, changes in speech, tingling and weakness Psych Details: Negative for anxiety, depression and stress Endo Details: Negative for polyuria and polydypsia Vincent/Lymph Details: Negative for excessive bruising or bleeding. Physical Exam Vital Signs: Last Vital Signs Temp 97.0 F 05/13/23 09:36 Pulse 82 05/13/23 09:36 BP 118/82 05/13/23 09:36 Pulse Ox 98 05/13/23 09:36 BMI result Body Mass Index 39.6 APPEARANCE: Patient appears uncomfortable complaining of chest and abdominal pain. She feels more comfortable normal in the supine position. EYES no redness, pupils equal and reactive to light, eyelids normal EARS: External ear normal, canal clear and tympanic membrane normal. NOSE/SINUS: Airflow through both nares, no nasal discharge, no bleeding THROAT: Oral mucosa moist, no ulcerations NECK: No thyromegaly or masses, no adenopathy, trachea midline. HEART: Regulrar rhythm, S1-S2 heard, no murmurs, rubs or gallops. Chest wall: There is tenderness along the lower sternum in the rib margins anteriorly. However the tenderness also seems to extend into the epigastrium. There is no sign of cutaneous inflammation or induration in the chest wall. LUNG: Clear to percussion and auscultation ABD: Normal bowel sounds, no organomegaly, masses. There is mild epigastric tenderness without rebound. EXTREMITIES: No edema, no calf tenderness, normal peripheral pulses. No swollen or tender joints. NEURO: Oriented and alert x3. No focal weakness. Reflexes symmetric. Gait normal. SKIN: No inflammatory or neoplastic lesions. 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 However there is significant abdominal tenderness raising the question of an intra-abdominal process. Peptic ulcer, gallbladder disease, pancreatitis, coronary ischemia, and pulmonary embolus are all possibilities here. I suspect that the major problem is the costochondritis from polychondritis but we need to rule out other significant intra-abdominal or intrathoracic pathology. I convinced her to present to the emergency room for further workup. I did speak with the ER staff about my suspicions about her diagnosis. If no other pathology is detected I think she should go up on her prednisone to 60 mg daily. I explained to her that the methotrexate may take months to fully be affective in that she will be watched closely to a monitor for any side effects that might occur. She does have an appointment next week with Dr. Alan. Her note indicating that she could work until possibly May 22. Dr. Alan could follow-up on that next week. 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
== END 2023-05-13 10:26 | disposition home or self-care (01) ==
LOC: HO.RHE 09:33
PROVIDERS: PCP Internal Medicine; Visit Provider Internal Medicine Rheumatology
DX: M94.1 Relapsing polychondritis (principal); Z79.52 Long term (current) use of systemic steroids; R07.9 Chest pain, unspecified; R10.9 Unspecified abdominal pain
CPT/HCPCS: 99214

== ENCOUNTER → 2023-05-13 09:32 | Outpatient (BNVA) | payer BC, SELFPAY | PROVIDERS: PCP Internal Medicine; Visit Provider Internal Medicine Rheumatology ==

== ENCOUNTER 2023-05-13 10:31 | Emergency (ER) | payer BC, SELFPAY ==
--- NOTE | ~2023-05-13 | CT_ITS ---
EXAMINATION: CT ABDOMEN AND PELVIS WITH CONTRAST CLINICAL INFORMATION: Upper abdominal pain radiating to back. COMPARISON: None available. TECHNIQUE: Multidetector volumetric images were obtained from the superior aspect of the liver through the pubic symphysis following administration 85 mL of Omnipaque 350 intravenous contrast. Sagittal and coronal reformatted images were obtained on the technologist's workstation. Oral contrast: No This CT examination was performed using dose optimization techniques as appropriate, variously including the following: *Automated exposure control *Adjustment of mA and/or kV according to patient size (this includes techniques or standardized protocols for targeted exams where dose is matched to indication/reason for exam; i.e. extremities or head) *Use of iterative reconstruction technique DLP: 778 mGy-cm FINDINGS: LUNG BASES: The lung bases are clear. LIVER, GALLBLADDER, AND BILIARY TREE: The liver is normal in size, shape, and attenuation. No focal hepatic lesion or biliary ductal dilatation is present. The gallbladder is unremarkable with no evidence of radiopaque gallstones, gallbladder wall thickening, or obvious pericholecystic inflammatory changes. PANCREAS: Unremarkable. SPLEEN: Unremarkable. ADRENAL GLANDS: Unremarkable. KIDNEYS AND URETERS: The kidneys are normal in size, shape, and attenuation. No hydronephrosis, hydroureter, or calculi seen. No perinephric stranding. BLADDER: Unremarkable. GASTROINTESTINAL TRACT: There is scattered stool and gas seen throughout the colon without distention or mural thickening. No pericolic fat stranding seen. The small bowel loops and appendix is normal caliber. No free air or inflammatory process seen. ABDOMINAL WALL: No significant hernia is appreciated. LYMPH NODES: Normal. VASCULAR: Unremarkable. PELVIC VISCERA: The uterus is anteverted and appears unremarkable. No abnormal pelvic lymph nodes. There is no evidence of hernia. OSSEOUS STRUCTURES: No aggressive lytic or sclerotic process seen. CT/CT abdomen pelvis w IV con IMPRESSION: No acute intra-abdominal process seen. Fleischner guidelines were followed.
[2023-05-13 10:40] VITALS: BP 150/90; PULSE 88; RESP 16; TEMP 36.9; O2SAT 97; BMI 39.5
--- NOTE | 2023-05-13 11:38 | ECG_ITS ---
Test Reason : epigastric pain Blood Pressure : / mmHG Vent. Rate : 082 BPM Atrial Rate : 082 BPM P-R Int : 168 ms QRS Dur : 084 ms QT Int : 372 ms P-R-T Axes : 068 -23 035 degrees QTc Int : 434 ms Normal sinus rhythm Minimal voltage criteria for LVH, may be normal variant ( R in aVL ) Borderline ECG When compared with ECG of 09-SEP-2016 17:14, No significant change was found Referred By: Keri Quezada Electronically Signed By:LAWRENCE VALENZUELA MD
[2023-05-13 12:00] VITALS: BP 160/73; PULSE 86; RESP 16; O2SAT 99
[2023-05-13 12:23] LABS: Appearance Urine Clear; Color Urine Yellow; Glucose Urine UA Negative (Negative); Leukocyte Esterase Urine Trace (Negative); Nitrite Urine Negative (Negative); PH 5.5 (5.0-9.0); Specific Gravity - Urine 1.015 (1.005-1.025); UMIC TRIGGER UACC YES; Urine Blood Negative (Negative); Urine Ketones Negative (Negative); Urine Protein Negative (Neg-Trace)
--- NOTE | 2023-05-13 12:23 | ED_ITS ---
HPI - Abdominal Pain General Chief Complaint: Abdominal Pain Stated Complaint: Epigastric & Back Pain Time Seen by Provider: 05/13/23 11:48 Source: patient Mode of arrival: ambulatory Limitations: no limitations History of Present Illness HPI narrative: 62-year-old female who presents emergency department for evaluation of upper abdominal pain that radiates to her back. The patient states that she has been having pain in her anterior chest and upper abdomen for approximately 1/2 weeks. She states the pain is a intermittent, sharp pain which radiates to her back, the pain is 10/10 at its worst. The patient went to see her dumper mold cleaner, Dr. Phillips who referred her to the emergency department for evaluation of her chest and abdominal pain. The patient states she has had similar chest pain in the past. She states that she believes is due to inflammation in the joints of her chest. She states that the pain that she is experiencing today is greater than 10/10. She took Tylenol and ibuprofen with no relief for pain. Review of systems was positive for chills, shortness of breath, nausea. Nega tive for vomiting, diarrhea, black stools, tarry stools, frequency, urgency or dysuria Related Data Home Medications Medication Instructions Recorded Confirmed acetaminophen 325 mg tablet 650 mg PO Q4H PRN 12/11/22 02/07/23 (Tylenol) albuterol sulfate 2.5 mg/3 mL 2.5 mg inhalation Q4-6H PRN 12/11/22 02/07/23 (0.083 %) solution for nebulization albuterol sulfate 90 mcg/actuation 2 puff inhalation Q6H PRN 12/11/22 02/07/23 aerosol inhaler (ProAir HFA) epinephrine 0.3 mg/0.3 mL 0.3 mg IM Q4H PRN 12/11/22 02/07/23 injection, auto-injector (EpiPen) montelukast 10 mg tablet 10 mg PO DAILY 12/11/22 02/07/23 (Singulair) budesonide 160 mcg-glycopyr 9 2 inh inhalation BID 12/12/22 02/07/23 mcg-formot 4.8 mcg/actuation HFA inhaler (Breztri Aerosphere) nebulizers 04/29/23 methotrexate sodium 2.5 mg tablet 20 mg PO QWEEK 05/13/23 prednisone 20 mg tablet 20 mg PO DAILY 05/13/23 Previous Rx's Medication Instructions Recorded diclofenac sodium 1 % topical gel 2 g topical QID #100 grams 12/12/22 (Arthritis Pain (diclofenac)) tramadol 50 mg tablet 50 mg PO BID PRN pain #7 tabs 12/13/22 folic acid 1 mg tablet 1 mg PO DAILY #90 tabs 02/07/23 aluminum hydrox-magnesium carb 254 10 ml PO QID PRN dyspepsia #355 mL 05/13/23 mg-237.5 mg/5 mL oral suspension (Gaviscon Extra Strength) cyclobenzaprine 10 mg tablet 10 mg PO TID PRN muscle pain or 05/13/23 spasm #20 tabs famotidine 20 mg tablet 20 mg PO DAILY 30 days #30 tabs 05/13/23 Allergies Allergy/AdvReac Type Severity Reaction Status Date / Time No Known Allergies Allergy Unverified 05/13/23 09:40 Pt states no known allergy to Allergy Unknown Unknown Uncoded 05/13/23 09:40 Review of Systems Review of Systems Yes all other systems are reviewed and are negative [facility] Past Medical History [facility] Narrative: Past medical history: Asthma, polychondritis, upper and lower extremity neuropathy. 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 She denies tobacco, alcohol and drug use. Medical History (Updated 05/13/23 @ 16:36 by Salinas Otoole MD) Asthma Chronic back pain GERD (gastroesophageal reflux disease) Heart palpitations assisted systemic steroid user Obesity SAMIRA (obstructive sleep apnea) Tachycardia Surgical History H/O tubal ligation Family History Family History Mother Diabetes Rheumatoid arthritis Father Asthma Social History Social History Household Members: Children Alcohol intake: never Patient Tobacco Use Status: Former Tobacco user Smoked in Last 30 Days: No Use of substances other than those prescribed or required for medical reasons: No Advance Directives: No Advance Directives Information Provided: Yes Current occupational status: employed 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 Physical Exam ED Vital Signs: Vital Signs - 24 hr 05/13/23 10:40 05/13/23 12:00 05/13/23 16:13 Temperature 98.4 F Pulse Rate 88 86 77 Respiratory Rate 16 16 18 Blood Pressure 150/90 H 160/73 H 124/81 Pulse Oximetry 97 99 100 Oxygen Delivery Method Room Air Room Air Room Air BMI result Body Mass Index 39.5 Const General: cooperative and no acute distress Orientation/consciousness: oriented to person and oriented to place Limitations: no limitations HENMT Head: Yes normal to inspection, Yes normocephalic and Yes atraumatic Ears: external ears normal General nose exam: Normal external nose present Face and sinus: Yes normal facial exam Mouth: Normal oral and palatal mucosa present Throat: Yes posterior oropharynx normal Eyes General: appearance normal, both eyes and all related structures Pupils: Equal, round and reactive pupils present Neck Neck: Yes normal visual inspection, Yes no lymphadenopathy, Yes trachea midline and Yes supple Chest Other: Tenderness with palpation over costochondral joints and sternum Resp Effort & Inspection: normal respiratory effort and able to speak in complete sentences Auscultation: clear to auscultation bilaterally Cardio Rate: regular rate Rhythm: regular rhythm Heart sounds: S1 normal heart sound present, S2 normal heart sound present and no murmurs GI Other: Patient's abdomen is soft, nondistended, she has moderate epigastric tenderness, mild to moderate left upper quadrant tenderness, moderate right upper quadrant tenderness, negative Norman sign, normoactive bowel sounds General: Yes no CVA tenderness Back/Spine/Pelvis Back: no CVA tenderness Skin General skin exam: no rashes or lesions noted Neuro General: oriented to person and oriented to place Cranial nerves: Yes CN's II-XII intact bilaterally and Yes Equal, round and reactive pupils present Cognition (Neuro): normal cognition Motor exam (neuro): 5/5 motor strength present throughout Extrem General: Yes normal to inspection Psych Appearance: grossly normal Speech and movement: Normal speech and movement present Affect: normal affect Attitude: cooperative Thought process: Normal thought process present Thought content: Normal thought content present Medical Decision Making Medical Decision Making MDM Narrative: 62-year-old female with history of asthma, polychondritis, neuropathy who was sent to emergency department by her dumper mold cleaner, Dr. Phillips for evaluation of chest and abdominal pain x1 half weeks with the pain radiating to her back. Patient had associated chills, nausea and shortness of breath. Vital signs revealed an elevated blood pressure of 150/90 otherwise unremarkable. Patient's physical examination did reveal tenderness palpation of her anterior chest as well as tenderness palpation of her upper abdomen with increased tenderness in her right upper quadrant. The following tests were ordered by me: CBC, CMP, ESR, CRP, magnesium, troponin, urinalysis, COVID-19, EKG, CT scan of the abdomen pelvis with IV contrast. I ordered normal saline x1 L, Toradol 15 mg IV and Zofran 4 mg IV 1621 The patient is feeling better after the above treatment Laboratory evaluation did not reveal any significant findings except for slight elevation in her ESR and CRP, normal WBC with a left shift. Urinalysis was unremarkable. CT scan of the abdomen pelvis did not reveal a clear cause of her pain which is reassuring This time I suspect the patient has gastritis. She may also be having spasm of her chest muscles She is prescribed the following medications: Pepcid 20 mg once a day for 1 month Extra-strength Gaviscon 10 mL 4 times a day as needed for pain Flexeril 10 mg, 1 pill 3 times a day as needed for muscle spasm Differential Diagnosis Differential Diagnoses: The differential diagnosis associated with the presentation includes Differential diagnosis includes but is not limited to acute cholecystitis, appendicitis, pancreatitis, pyelonephritis, urinary tract infection, costochondritis Admission/Observation Consideration of admission/observation: Escalation of care including admission/observation considered Lab Data MDM Lab Attestation statement: I reviewed the patient's lab results. My independent interpretation patient's laboratory evaluation is as follows: WBC was normal 10,200, left shift 91 neutrophils, no bands. CMP was normal. Lipase was normal. Urinalysis revealed trace leukocytes, microscopic revealed 3-5 WBCs 0-5 RBCs, 0-2 squamous cells, no bacteria-see send negative uri nalysis/microscopic no evidence for infection. COVID-19 was negative. ESR was elevated at 28. CRP was elevated 0.6 05/13/23 12:14 05/13/23 12:14 Labs: Lab Results 05/13/23 05/13/23 05/13/23 Range/Units 12:14 12:14 12:14 WBC 10.2 (4.8-10.8) X10*3/uL RBC 4.53 (4.20-5.50) X10*6/uL Hgb 13.4 (12.0-16.0) g/dl Hct 40.9 (37.0-47.0) % MCV 90.3 (80.0-98.0) fL MCH 29.6 (27.0-33.0) pg MCHC 32.8 (31.0-35.0) g/dl RDW 12.9 (11.0-16.0) % Plt Count 275 (160-400) X10*3/uL MPV 10.1 (9.4-12.3) fL Immature Gran % (Auto) 1.2 H (0.0-0.4) % Neut % (Auto) 91.4 H (45-73) % Lymph % (Auto) 6.4 L (20-40) % Roane % (Auto) 0.7 L (2-11) % Eos % (Auto) 0.1 (0-4) % Baso % (Auto) 0.2 (0-2) % Lymph # (Auto) 0.7 L (1.2-4.9) X10*3/uL Roane # (Auto) 0.1 (0.1-1.2) X10*3/uL Eos # (Auto) 0.0 (0.0-0.4) X10*3/uL Baso # (Auto) 0.0 (0.0-0.2) X10*3/uL Abs Immat Gran (auto) 0.12 H (0.00-0.03) X10*3/uL Absolute Neuts (auto) 9.3 H (2.0-8.3) x10*3/uL Absolute Nucleated RBC 0.000 (0.0-0.012) X10*3/uL Nucleated RBC % (auto) 0.0 (0.0-0.2) /100WBC Smear Tech's Comments VERIFIED ESR (0-20) MM/HR Sodium 141 (135-145) mmol/L Potassium 4.0 D (3.3-5.1) mmol/L Chloride 108 (96-108) mmol/L Carbon Dioxide 22 (22-29) mmol/L Anion Gap 15 (12-20) BUN 19 H (9-16) mg/dL Creatinine 0.81 (0.5-1.4) mg/dL Estim Creat Clear Calc 78.7 Estimated GFR > 60 Random Glucose 115 (60-115) mg/dL Calcium 9.6 (8.4-10.2) mg/dL Magnesium 2.3 (1.6-2.6) mg/dL Total Bilirubin 0.4 (0.0-1.0) mg/dL AST 18 (5-31) U/L ALT 22 (0-31) U/L Alkaline Phosphatase 88 (39-117) U/L Troponin I High Sens 7.3 D (<3.5-17.0) ng/L Total Protein 7.5 (6.5-8.0) g/dL Albumin 3.9 (3.5-5.0) g/dL Lipase 49 (8-78) U/L Urine Color Urine Appearance Urine pH (5.0-9.0) Ur Specific Viola (1.005-1.025) Urine Protein (Neg-Trace) mg/dL Urine Glucose (UA) (Negative) mg/dL Urine Ketones (Negative) mg/dL Urine Blood (Negative) Urine Nitrite (Negative) Ur Leukocyte Esterase (Negative) Urine RBC (0-2) /HPF Urine WBC (0-5) /HPF Ur Squamous Epith Cells (0-2) /HPF Urine Bacteria (None Seen) Hyaline Casts (0-2) /LPF COVID-19 (RHEA) (Negative) COVID-19 Clin Com 05/13/23 05/13/23 05/13/23 Range/Units 12:14 12:14 12:14 WBC (4.8-10.8) X10*3/uL RBC (4.20-5.50) X10*6/uL Hgb (12.0-16.0) g/dl Hct (37.0-47.0) % MCV (80.0-98.0) fL MCH (27.0-33.0) pg MCHC (31.0-35.0) g/dl RDW (11.0-16.0) % Plt Count (160-400) X10*3/uL MPV (9.4-12.3) fL Immature Gran % (Auto) (0.0-0.4) % Neut % (Auto) (45-73) % Lymph % (Auto) (20-40) % Roane % (Auto) (2-11) % Eos % (Auto) (0-4) % Baso % (Auto) (0-2) % Lymph # (Auto) (1.2-4.9) X10*3/uL Roane # (Auto) (0.1-1.2) X10*3/uL Eos # (Auto) (0.0-0.4) X10*3/uL Baso # (Auto) (0.0-0.2) X10*3/uL Abs Immat Gran (auto) (0.00-0.03) X10*3/uL Absolute Neuts (auto) (2.0-8.3) x10*3/uL Absolute Nucleated RBC (0.0-0.012) X10*3/uL Nucleated RBC % (auto) (0.0-0.2) /100WBC Smear Tech's Comments ESR 28 H (0-20) MM/HR Sodium (135-145) mmol/L Potassium (3.3-5.1) mmol/L Chloride (96-108) mmol/L Carbon Dioxide (22-29) mmol/L Anion Gap (12-20) BUN (9-16) mg/dL Creatinine (0.5-1.4) mg/dL Estim Creat Clear Calc Estimated GFR Random Glucose (60-115) mg/dL Calcium (8.4-10.2) mg/dL Magnesium (1.6-2.6) mg/dL Total Bilirubin (0.0-1.0) mg/dL AST (5-31) U/L ALT (0-31) U/L Alkaline Phosphatase (39-117) U/L Troponin I High Sens (<3.5-17.0) ng/L Total Protein (6.5-8.0) g/dL Albumin (3.5-5.0) g/dL Lipase (8-78) U/L Urine Color Yellow Urine Appearance Clear Urine pH 5.5 (5.0-9.0) Ur Specific Viola 1.015 (1.005-1.025) Urine Protein Negative (Neg-Trace) mg/dL Urine Glucose (UA) Negative (Negative) mg/dL Urine Ketones Negative (Negative) mg/dL Urine Blood Negative (Negative) Urine Nitrite Negative (Negative) Ur Leukocyte Esterase Trace H (Negative) Urine RBC 3-5 H (0-2) /HPF Urine WBC 0-5 (0-5) /HPF Ur Squamous Epith Cells 0-2 (0-2) /HPF Urine Bacteria None Seen (None Seen) Hyaline Casts 0-2 (0-2) /LPF COVID-19 (RHEA) Negative (Negative) COVID-19 Clin Com See Note Independent Interpretation I performed an independent interpretation of an: EKG Interpretation: My interpretation of the patient's 12 EKG done at 11:40 hours is as follows: Normal sinus rhythm with a rate of 82, normal NM interval, QRS duration QTC interval, no ST segment elevation, no ST segment depression, no T-wave abnormalities, no PACs, no PVCs, this is a normal EKG. Radiology Impression Discussion of test interpretation with radiology: I have reviewed the radiologist's reading. Radiologist Impression: CT abdomen pelvis w IV con IMPRESSION: No acute intra-abdominal process seen. Fleischner guidelines were followed. Dictated By:Micheal Delatorre MD Prescription Management I considered prescription management with: Pain Medication and Other (Antacid) Chronic Conditions Patient?s care impacted by: Other (Asthma, neuropathy) Medications Administered Discontinued Medications Generic Name Dose Route Start Last Admin Trade Name Freq PRN Reason Stop Dose Admin Sodium Chloride 1,000 mls @ 999 mls/hr 05/13/23 12:21 05/13/23 16:03 Ns IV 05/13/23 13:21 Infused .Q1H1M STA Infusion Iohexol 85 ml 05/13/23 13:06 05/13/23 13:10 Iohexol 350 Mg/Ml 100 Ml Infus..Btl IV 05/13/23 13:07 85 ml ONCE ONE Administration Ketorolac Tromethamine 15 mg 05/13/23 12:21 05/13/23 13:11 Ketorolac Tromethamine 15 Mg/Ml Vial IVPUSH 05/13/23 12:22 15 mg ONCE STA Administration Ondansetron HCl 4 mg 05/13/23 12:21 05/13/23 13:11 Ondansetron Hcl 4 Mg/2 Ml Vial IVPUSH 05/13/23 12:22 4 mg ONCE ONE Administration Discharge Plan Discharge Clinical Impression: Gastritis, Abdominal pain Patient Disposition: Home, Self-Care Instructions: Gastritis (ED) Additional Instructions: Your blood work was unremarkable except for slight elevation in your inflammatory markers (ESR and CRP). The CT scan of your abdomen pelvis with IV contrast did not reveal any significant abnormalities to explain your pain At this time, I believe that your pain is caused by inflammation of your stomach (gastritis) Take Pepcid (famotidine) 20 mg pills, 1 pill once a day for 2 weeks. This medication reduces the amount of acid that your stomach produces and will help the inflammation in your stomach heal. Take extra-strength Gaviscon 10 mL (2 tsp) 4 times a day as needed for abdominal pain. I believe that your chest discomfort is caused by spasm of your chest muscles. Take Flexeril (cyclobenzaprine) 10 mg pills, 1 pill every 6-8 hours as needed for pain or spasm. This medication will make you sleepy. Do not drive or work while taking this medication. Follow-up with your doctor in 2 days. Please return to the emergency department if your symptoms get worse or if you develop any symptoms that are concerning to you. Prescriptions: New Gaviscon Extra Strength 254-237.5 mg/5 mL suspension 10 ml PO QID PRN (Reason: dyspepsia) Qty: 355 0RF famotidine 20 mg tablet 20 mg PO DAILY 30 Days Qty: 30 0RF cyclobenzaprine 10 mg tablet 10 mg PO TID PRN (Reason: muscle pain or spasm) Qty: 20 0RF No Action tramadol 50 mg tablet 50 mg PO BID PRN (Reason: pain) Qty: 7 0RF albuterol sulfate 2.5 mg /3 mL (0.083 %) solution for nebulization 2.5 mg inhalation Q4-6H PRN montelukast [Singulair] 10 mg tablet 10 mg PO DAILY albuterol sulfate [ProAir HFA] 90 mcg/actuation HFA aerosol inhaler 2 puff inhalation Q6H PRN epinephrine [EpiPen] 0.3 mg/0.3 mL auto-injector 0.3 mg IM Q4H PRN acetaminophen [Tylenol] 325 mg tablet 650 mg PO Q4H PRN Breztri Aerosphere 160-9-4.8 mcg/actuation HFA aerosol inhaler 2 inh inhalation BID diclofenac sodium [Arthritis Pain (diclofenac)] 1 % gel 2 g topical QID Qty: 100 1RF Rx Instructions: apply to single elbow, wrist or hand; for hand includes palm/fingers/back of hand folic acid 1 mg tablet 1 mg PO DAILY Qty: 90 1RF prednisone 20 mg tablet 20 mg PO DAILY (DME) nebulizers Misc See Rx Instructions .ROUTE Rx Instructions: As directed methotrexate sodium 2.5 mg tablet 20 mg PO QWEEK
[2023-05-13 12:25] LABS: Basophils Percent Auto 0.2 % (0-2); Eosinophils Percent Auto 0.1 % (0-4); Hematocrit 40.9 % (37.0-47.0); Hemoglobin 13.4 g/dl (12.0-16.0); Imm Gran Abs Auto 0.12 X10*3/uL (0.00-0.03); Imm Gran Pct Auto 1.2 % (0.0-0.4); Lymphocytes Absolute Auto 0.7 X10*3/uL (1.2-4.9); Lymphocytes Percent Auto 6.4 % (20-40); MANUAL DIFF FLAG SCAN; Mean Corpuscular HGB Conc 32.8 g/dl (31.0-35.0); Mean Corpuscular Hemoglobin 29.6 pg (27.0-33.0); Mean Corpuscular Volume 90.3 fL (80.0-98.0); Mean Platelet Volume 10.1 fL (9.4-12.3); Monocytes Absolute Auto 0.1 X10*3/uL (0.1-1.2); Monocytes Percent Auto 0.7 % (2-11); Neutrophils Absolute Auto 9.3 x10*3/uL (2.0-8.3); Neutrophils Percent Auto 91.4 % (45-73); Platelet Count 275 X10*3/uL (160-400); Red Blood Count 4.53 X10*6/uL (4.20-5.50); Red Cell Distribution Width 12.9 % (11.0-16.0); SCAN SMEAR FLAG 1; White Blood Count 10.2 X10*3/uL (4.8-10.8)
[2023-05-13 12:28] LABS: Bacteria Urine None Seen (None Seen); Hyaline Casts Urine 0-2 /LPF (0-2); Squamous Epithelial Cell Urine 0-2 /HPF (0-2); WBC Urine 0-5 /HPF (0-5)
[2023-05-13 12:36] LABS: Alanine Aminotransferase 22 U/L (0-31); Albumin Level 3.9 g/dL (3.5-5.0); Alkaline Phosphatase 88 U/L (39-117); Anion Gap 15 (12-20); Aspartate Amino Transferase 18 U/L (5-31); Bilirubin Total 0.4 mg/dL (0.0-1.0); Blood Urea Nitrogen 19 mg/dL (9-16); Calcium 9.6 mg/dL (8.4-10.2); Carbon Dioxide 22 mmol/L (22-29); Chloride 108 mmol/L (96-108); Creatinine Clr Calc Pharmacy 78.7; Estimated Glomerular Filt Rate > 60; Glucose Random 115 mg/dL (60-115); Magnesium 2.3 mg/dL (1.6-2.6); Sodium 141 mmol/L (135-145); Total Protein 7.5 g/dL (6.5-8.0)
[2023-05-13 12:43] LABS: Troponin-I High Sensitivity 7.3 ng/L (<3.5-17.0)
[2023-05-13 13:01] LABS: Lipase 49 U/L (8-78)
[2023-05-13] MEDS: 0.9 % Sodium Chloride 1,000 ML 999 ML IV (13:05)
[2023-05-13 13:07] LABS: COVID-19 Test Negative (Negative); IDNOW Serial# 6674DD1D
[2023-05-13] MEDS: iohexoL 350 MG/ML 100 ML INFUS..BTL 85 ML IV (13:10)
[2023-05-13] MEDS: ondansetron HCL 4 MG/2 ML VIAL IVPUSH (13:11)
[2023-05-13] MEDS: Ketorolac Tromethamine 15 MG/ML VIAL IVPUSH (13:11)
--- NOTE | 2023-05-13 13:12 | MHC.CM.ED ---
Received notification from Alexia of Registration that patient interested in completing a HCP. HCP completed, signed and witnessed. Original given to patient. Copy placed in chart.
[2023-05-13 13:15] LABS: SLIDE REVIEW VERIFIED
--- NOTE | 2023-05-13 13:16 | PC.NURSE ---
22 in L hand, fluids hung and meds given per order.
[2023-05-13 15:21] LABS: Erythrocyte Sedimentation Rate 28 MM/HR (0-20)
[2023-05-13 16:13] VITALS: BP 124/81; PULSE 77; RESP 18; O2SAT 100
[2023-05-13 17:16] VITALS: BP 141/77; PULSE 106; RESP 18; TEMP 36.8; O2SAT 99
--- NOTE | 2023-05-13 17:20 | PC.NURSE ---
pt aox4. calm, cooperative. piv removed. awaiting ride. no distress.
== END 2023-05-13 17:25 | disposition home or self-care (01) ==
PROVIDERS: Physician Assistant Medical; Emergency Provider Emergency Medicine Emergency Medical Services; PCP Internal Medicine
DX: K29.70 Gastritis, unspecified, without bleeding (principal); R10.13 Epigastric pain; K21.9 Gastro-esophageal reflux disease without esophagitis; Z79.899 Other long term (current) drug therapy; Z79.52 Long term (current) use of systemic steroids; Z20.822 Contact with and (suspected) exposure to COVID-19
CPT/HCPCS: 36415; 74177; 80053; 81001; 83690; 83735; 84484; 85025; 85652; 86140; 87635; 93005; 96361; 96374; 96375; 99284; 99285; J1885; J2405; Q9967

== ENCOUNTER → 2023-05-13 11:38 | Outpatient (BNV) | payer BC, SELFPAY | PROVIDERS: Emergency Provider Emergency Medicine Emergency Medical Services; PCP Internal Medicine; Visit Provider Internal Medicine Cardiovascular Disease | DX: R07.89 Other chest pain (principal) | CPT/HCPCS: 93010 ==

== ENCOUNTER 2023-05-20 13:55 | Outpatient (AMB) | payer BC, SELFPAY ==
[2023-05-20 14:08] VITALS: BP 104/62; PULSE 82; TEMP 36.3; O2SAT 99; BMI 39.9
--- NOTE | 2023-05-20 14:08 | A.OFFVIS_ITS ---
Intake Vital Signs 05/20/23 14:08 Height 5 ft 2 in Weight 218 lb 4.122 oz BMI 39.9 BP 104/62 Blood Pressure Location Rt brachial Position Sitting Pulse 82 Pulse Source Pulse Oximeter Temp 97.3 F Temp Source Skin Pulse Oximetry (%) 99 Intake Visit Reasons: Relapsing polychondritis Intake Note: Pt seen today for follow up. Reports she was seen in ED last week and was given famotidine and flexeril. She states she feels much better since taking the flexeril. Rand Cementer Required: No Accompanied by: Self / Same As Patient Allergies No Known Allergies Allergy (Unverified 05/20/23 14:15) Medication List - Last Reconciled 05/20/23 by Sienna Alan MD acetaminophen (Tylenol) 650 mg PO Q4H PRN albuterol sulfate 90 mcg/actuation (ProAir HFA) 2 puffs inhalation Q6H PRN albuterol sulfate 2.5 mg inhalation Q4-6H PRN aluminum hydrox-magnesium carb 254-237.5 mg/5 mL (Gaviscon Extra Strength) 10 mL PO QID PRN thwievwtsj-jfgolkcc-uuylaaaxwq 160-9-4.8 mcg/actuation (Breztri Aerosphere) 2 inhalations inhalation BID cyclobenzaprine 10 mg PO TID PRN diclofenac sodium 1% (Arthritis Pain (diclofenac)) 2 grams topical QID epinephrine (EpiPen) 0.3 mg IM Q4H PRN famotidine 20 mg PO DAILY 30 days folic acid 1 mg PO DAILY methotrexate sodium 20 mg PO QWEEK montelukast (Singulair) 10 mg PO DAILY nebulizers As directed prednisone 20 mg PO DAILY tramadol 50 mg PO BID PRN HPI HPI Comments History of Present Illness Details 62-year-old female with relapsing polychondritis returns for follow-up. Patient did not start methotrexate after last visit as instructed, she was scared of starting it. She was evaluated by her safety and security officer Dr. Kuhn 3 weeks ago who urged patient to start methotrexate. A week ago she was evaluated by Dr. Phillips on an urgent basis at the [facility] for diffuse chest and abdominal pain. She was sent to the emergency room. CT abdomen was unremarkable. Patient increased the prednisone dose to 40 mg last week with some improvement in her overall chest pain. She continues to have pain in the center of her chest, she could not wear her bra due to chest pain, she also states that the seatbelt causes significant chest pain. She was prescribed famotidine and Flexeril in the emergency room which are helping some. She has not had any recurrent ear swelling. She has been compliant with methotrexate for the last 3 weeks. She is unable to work due to significant chest pain. 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 Review of Systems Card Reports chest pain GI Reports abdominal pain Physical Exam Vital Signs: Last Vital Signs Temp 97.3 F 05/20/23 14:08 Pulse 82 05/20/23 14:08 BP 104/62 05/20/23 14:08 Pulse Ox 99 05/20/23 14:08 BMI result Body Mass Index 39.9 Const General: cooperative, healthy appearing and in distress mild Nutritional Appearance: obese morbidly obese Orientation/consciousness: patient oriented x3 Limitations: no limitations HEENT Head: Yes normocephalic and Yes atraumatic Mouth: moist mucous membranes Chest Other: Chest inspection and palpation was done with Nurse Elzbieta Hale present in the room. Diffuse sternal pain as well as rib pain Resp Effort & Inspection: normal respiratory effort and able to speak in complete sentences Auscultation: clear to auscultation bilaterally Cardio Rate: regular rate Rhythm: regular rhythm GI Inspection: No distended Palpation (GI): Soft to palpation and nontender Neuro General: patient oriented x3 Extrem Other: Multiple fibromyalgia tender points with no swollen joints Results Reviewed Results Reviewed: DATE OF SERVICE: 05/16/22 INDICATION: SPIROMETRY: FEV1 is 97 % predicted and an FVC? is 103 % predicted.The FEV1/FVC ratio is 94% of normal, No significant response to bronchodilators noted. Maximum voluntary ventilation 122% predicted. LUNG VOLUMES: Total lung capacity (TLC): 102% predicted. Residual volume (RV): 86% predicted RV/TLC ratio is 85% of normal End respiratory volume (ERV): 295% predicted DIFFUSION CAPACITY: DLCO 98% predicted. DlCO/VA 105% of predicted COMPARISONS: INTERPRETATION: This pulmonary function test shows normal spirometry and diffusion. This is a normal PFT Assessment & Plan Assessment & Plan (1) Relapsing polychondritis of multiple sites: Comment: dx 12/26 bilateral ear chondritis, costochondritis & seroneg RA MTX started 04/25 Code(s): M94.1 - Relapsing polychondritis Plan: This is a 62-year-old female with relapsing polychondritis who returns for follow-up. Upon evaluation patient has diffuse sternal and rib pain, likely due to underlying chondritis. I urged patient again to be compliant with methotrexate (20 mg weekly). She has started it 3 weeks ago. Increase prednisone to 60 mg daily and reduce by 10 mg every 2 weeks and remain on 20 mg daily Continue to take famotidine. Safety labs for methotrexate in 1 month Patient is unable to perform duties of her job due to significant chest pain. 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 Will monitor patient for side effects with frequent lab work. Advised patient to take folic acid daily to prevent complications of methotrexate. (3) [facility] (current) use of systemic steroids: Code(s): Z79.52 - construction project manager (current) use of systemic steroids Plan: Per patient has been on prednisone almost consistently for 1 year. DEXA scan was ordered. Plan I spent 30 minutes reviewing patient's chart, evaluating patient, ordering diagnostic workup, counseling patient and documenting in the chart Orders: Orders Complete Blood Count Auto Diff 1 Month Z79.631 - [facility] (current) use of antimetabolite agent Comprehensive Met. 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
== END 2023-05-20 14:47 | disposition home or self-care (01) ==
PROVIDERS: PCP Internal Medicine; Visit Provider Student in an Organized Health Care Education/Training Program
DX: M94.1 Relapsing polychondritis (principal); Z79.631 Long term (current) use of antimetabolite agent; Z79.52 Long term (current) use of systemic steroids
CPT/HCPCS: 99214

== ENCOUNTER → 2023-05-20 13:55 | Outpatient (BNVA) | payer BC, SELFPAY | PROVIDERS: PCP Internal Medicine; Visit Provider Student in an Organized Health Care Education/Training Program ==

== ENCOUNTER 2023-07-28 15:01 | Outpatient (AMB) | payer BC, SELFPAY ==
--- NOTE | 2023-07-28 15:17 | A.OFFVIS_ITS ---
Intake Vital Signs 3 07/28/23 15:18 Height 5 ft 2 in Weight 218 lb 4.122 oz BMI 39.9 Pulse 87 Pulse Source Pulse Oximeter Pulse Oximetry (%) 98 Oxygen Delivery Method Room Air Intake Visit Reasons: asthma Allergies No Known Allergies Allergy (Unverified 07/28/23 15:19) HPI HPI Comments 2 History of Present Illness0 Details The patient is a 62 year woman apparently with a history of asthma in addition to connective tissue disease. Recently she was evaluated by Rheumatology and she was diagnosed with relapsing polychondritis. Mainly affecting the college of her ears. She has been on chronic dose of the prednisone higher and lower dosage is currently a baseline of 20 mg. She was recommended start methotrexate but she was concerned about the medication. I did encourage her to start the methotrexate. She can in consider starting at a lower dose 9 increasing in titrating up as tolerated. To the dose that she was recommended for her to take. The patient does have significant shortness of breath. She has been using Symbicort. She was also sent Trelegy but she has not been able to start as of yet because of a prior approval. The Symbicort is only partially helpful. Before that she had been on Nucala for her significant asthma but became very expensive and she could not tolerate the cost anymore. Her respiratory status is significantly worsen where she cannot do even activities of daily living due to shortness of breath. In the office we did go for brief walking oximetry. Quickly her oxygen decreased down to about 95% but more importantly a heart rate increased about 125 and she was visibly dyspneic we did dyspnea score of 6/10. The patient may have other pulmonary vascular conditions that may be impacting her respiratory status. The patient did have an echocardiogram with normal cardiac function which is reassuring however. I will going to go ahead and order blood work including a D-dimer to assess for pulmonary vascular conditions. In the meantime will going to optimize respiratory therapy by adding Incruse to her Symbicort. 07/28/2023 the patient is here for a pulmonary follow-up visit. She is been complaining of worsening year discomfort feels like a throbbing the left ear more than the right. Also having some discomfort in the larynx area. This has been going on for several days. She has been on the methotrexate. Unfortunately does not seem to be controlling the significant flare-ups from the relapsing polychondritis. We did review her imaging studies. She did have a CTA which was reassuring without any evidence of any active underlying parenchymal lung disease. No evidence of any thromboembolic disease. Patient's chest pain is overall better. Her breathing is also improved. She continues on the current respiratory therapy with good effect. She also has good adherence. Today because the significant polychondritis will provide her with Solu-Medrol intramuscularly and then the patient start prednisone. 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 Review of Systems Const Reports weakness and Reports weight gain Eyes Reports no additional complaints ENT Reports change in voice, Reports hoarseness, Reports nose pain and Reports other (ear pain and swelling) Card Reports no additional complaints, Denies dyspnea and Denies dyspnea on exertion Resp Denies dyspnea and Denies dyspnea on exertion Musc Reports arthralgias and Reports numbness Neuro Reports numbness and Reports weakness Psych Reports abnormal sleep pattern Physical Exam Vital Signs: Last Vital Signs Pulse 87 07/28/23 15:18 Pulse Ox 98 07/28/23 15:18 Oxygen Delivery Method Room Air 07/28/23 15:18 BMI result Body Mass Index 39.9 Const General: comfortable HEENT Head: Yes normocephalic Ears: external ear abnormal other (pain and swelling) Eyes General: appearance normal, both eyes and all related structures Neck Neck: Yes supple Chest Chest palpation & inspection: normal inspection of the chest Resp Effort & Inspection: normal respiratory effort Auscultation: clear to auscultation bilaterally, no rales and no wheezes Cardio Rate: tachycardic Rhythm: regular rhythm Heart sounds: S1 normal heart sound present and S2 normal heart sound present GI Palpation (GI): Soft to palpation Skin General skin exam: no rashes or lesions noted Extrem General: No clubbing and No cyanosis Office Meds methylprednisolone sod suc(PF) 125 mg/2 mL solution for injection Performing Provider: Doroteo Kuhn MD Performing Location: [facility] Administered by: Poornima Huynh LPN on 07/28/23 15:52 2 Dose Route Admin Location Dispensed Lot Number Expiration Date NDC Medical Grade [place] 125 mg IM R buttock 2 mL [id number] 08/02/25 5293-6857-14 [employer] [place] [employer] Results Reviewed Results Reviewed: Assessment & Plan Assessment & Plan (1) Relapsing polychondritis of multiple sites: Comment: dx 12/26 bilateral ear chondritis, costochondritis & seroneg RA MTX started 04/25 Code(s): M94.1 - Relapsing polychondritis (2) Asthma: Code(s): J45.909 - Unspecified asthma, uncomplicated Qualifiers: Asthma severity: moderate Asthma persistence: persistent Asthma complication type: uncomplicated Qualified Code(s): J45.40 - Moderate persistent asthma, uncomplicated Plan continue symbicort continue Incruse start Prednisone taper solumedrol provided in the office with severe swelling of her cartilage On MTX will follow up with rheumatology F/U 3-4 months Orders: Orders 2 AMB Methylprednisolone Injection Today M94.1 - Relapsing polychondritis Medications: New 2 prednisone PO daily; Take 6 tabs daily x 3 days, then 5 tabs x 3 days, then 4 tabs x 3 days, then 3 tabs x 3 days, then 2 tabs daily x 3 days, then 1 tab x 3 days to complete. 18 days 63 tabs 0RF Coding Level of Care Code Est Pt Level 4 (50807) Diagnoses Relapsing polychondritis of multiple sites M94.1 Moderate persistent asthma without complication J45.40 Asthma severity: moderate Asthma persistence: persistent Asthma complication type: uncomplicated Time Spent (min) 17
[2023-07-28 15:18] VITALS: PULSE 87; O2SAT 98; BMI 39.9
== END 2023-07-28 15:39 | disposition home or self-care (01) ==
PROVIDERS: PCP Internal Medicine; Visit Provider Hospitalist
DX: M94.1 Relapsing polychondritis (principal); J45.40 Moderate persistent asthma, uncomplicated
CPT/HCPCS: 99214

== ENCOUNTER → 2023-07-28 15:01 | Outpatient (BNVA) | payer BC, SELFPAY | PROVIDERS: PCP Internal Medicine; Visit Provider Hospitalist | DX: J45.40 Moderate persistent asthma, uncomplicated (principal); M94.1 Relapsing polychondritis; Z79.899 Other long term (current) drug therapy | CPT/HCPCS: 96372; J2930 ==

== ENCOUNTER 2023-08-13 13:37 | Outpatient (AMB) | payer BC, SELFPAY ==
[2023-08-13 13:42] VITALS: BP 122/70; PULSE 75; TEMP 36.2; O2SAT 99; BMI 39.7
--- NOTE | 2023-08-13 13:42 | MHC.OFFVIS ---
Intake Vital Signs 08/13/23 13:42 Height 5 ft 2 in Weight 216 lb 14.958 oz BMI 39.7 BP 122/70 Blood Pressure Location Rt brachial Position Sitting Pulse 75 Pulse Source Pulse Oximeter Temp 97.2 F Temp Source Skin Pulse Oximetry (%) 99 Intake Visit Reasons: Relapsing polychondritis Intake Note: Pt seen today for follow up. Did not do labs. Reports she is on prednisone with Dr Kuhn. Difficulty with sleeping. Felt Checker Required: No Accompanied by: Self / Same As Patient Allergies No Known Allergies Allergy (Unverified 08/13/23 13:44) Medication List - Last Reconciled 08/13/23 by Sienna Alan MD acetaminophen (Tylenol) 650 mg PO Q4H PRN albuterol sulfate 90 mcg/actuation (ProAir HFA) 2 puffs inhalation Q6H PRN albuterol sulfate 2.5 mg inhalation Q4-6H PRN aluminum hydrox-magnesium carb 254-237.5 mg/5 mL (Gaviscon Extra Strength) 10 mL PO QID PRN elaocdwwfd-xnlilxsa-ldzbvjmpso 160-9-4.8 mcg/actuation (Breztri Aerosphere) 2 inhalations inhalation BID cyclobenzaprine 10 mg PO TID PRN diclofenac sodium 1% (Arthritis Pain (diclofenac)) 2 grams topical QID epinephrine (EpiPen) 0.3 mg IM Q4H PRN famotidine 20 mg PO DAILY 30 days folic acid 1 mg PO DAILY montelukast (Singulair) 10 mg PO DAILY nebulizers As directed prednisone PO daily; Take 6 tabs daily x 3 days, then 5 tabs x 3 days, then 4 tabs x 3 days, then 3 tabs x 3 days, then 2 tabs daily x 3 days, then 1 tab x 3 days to complete. 18 days zolpidem 5 mg PO BEDTIME NS HPI HPI Comments History of Present Illness Details 63-year-old female with relapsing polychondritis returns for follow-up. Patient rapidly tapered her prednisone to off a few days after her last visit with me. She stated that she was gaining weight and she stopped the prednisone. She has been taking the methotrexate consistently since last visit. 3-4 weeks ago she started having a flare-up of bilateral ear pain swelling and redness as well as throat pain. She was evaluated by Dr. Kuhn 3 weeks ago and received 125 mg of Solu-Medrol intramuscular with some improvement. Followed by prednisone taper. She is currently on 10 mg of prednisone daily. States that since starting methotrexate she has been having some insomnia. Her insomnia is worse now since prednisone was increased. States that she continues to have some chest pain and abdominal pain but it is better than before. She does not wear a bra due to the pain. Recently she noticed a sore on her left upper back that was intermittently draining pus-like material. 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 Review of Systems ENT Details: Left year pain and swelling Some throat pain Card Reports chest pain at rest Musc Denies arthralgias Skin/Breast Details: Skin abscess Physical Exam Vital Signs: Last Vital Signs Temp 97.2 F 08/13/23 13:42 Pulse 75 08/13/23 13:42 BP 122/70 08/13/23 13:42 Pulse Ox 99 08/13/23 13:42 BMI result Body Mass Index 39.7 Const General: cooperative and healthy appearing Nutritional Appearance: obese morbidly obese Orientation/consciousness: patient oriented x3 Limitations: no limitations HEENT Other: Head: Yes normocephalic and Yes atraumatic Mouth: moist mucous membranes Resp Effort & Inspection: normal respiratory effort and able to speak in complete sentences Auscultation: clear to auscultation bilaterally Cardio Rate: regular rate Rhythm: regular rhythm GI Inspection: No distended Palpation (GI): Soft to palpation and nontender Skin Other: An area of erythema and indurated skin and the left upper back, when milked it produces a pinkish abscess like material Neuro General: patient oriented x3 Extrem Other: No active synovitis Results Reviewed Results Reviewed: DATE OF SERVICE: 05/16/22 INDICATION: SPIROMETRY: FEV1 is 97 % predicted and an FVC? is 103 % predicted.The FEV1/FVC ratio is 94% of normal, No significant response to bronchodilators noted. Maximum voluntary ventilation 122% predicted. LUNG VOLUMES: Total lung capacity (TLC): 102% predicted. Residual volume (RV): 86% predicted RV/TLC ratio is 85% of normal End respiratory volume (ERV): 295% predicted DIFFUSION CAPACITY: DLCO 98% predicted. DlCO/VA 105% of predicted COMPARISONS: INTERPRETATION: This pulmonary function test shows normal spirometry and diffusion. This is a normal PFT Assessment & Plan Assessment & Plan (1) Relapsing polychondritis of multiple sites: Comment: dx 12/26 bilateral ear chondritis, costochondritis & seroneg RA MTX started 04/25 Code(s): M94.1 - Relapsing polychondritis Plan: This is a 63-year-old female with relapsing polychondritis who returns for follow-up. On methotrexate 20 mg weekly. Unfortunately per patient rapidly tapered her prednisone since last visit and had a flare up of her bilateral ear chondritis 3 weeks ago when evaluated by Pulmonary and received IV Solu-Medrol intramuscular injection followed by prednisone taper with improvement. Will need to advance patient's DMARDs however given current skin abscess will have to hold off. Will refer patient to general surgery for incision and drainage of skin abscess. 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 Will monitor patient for side effects with frequent lab work. Advised patient to take folic acid daily to prevent complications of methotrexate. 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 (4) Skin abscess: Code(s): L02.91 - Cutaneous abscess, unspecified Qualifiers: Site of cutaneous abscess: trunk Site of cutaneous abscess of trunk: back Qualified Code(s): L02.212 - Cutaneous abscess of back [any part, except buttock] Plan: Referred to general surgeon (5) Insomnia: Code(s): G47.00 - Insomnia, unspecified Qualifiers: Insomnia type: primary Qualified Code(s): F51.01 - Primary insomnia Plan: Unclear cause, has been worse since starting methotrexate and even worse when prednisone is added. Patient stated that melatonin and Benadryl were not effective. Will start zolpidem trial Plan I spent 46 minutes reviewing patient's chart, evaluating patient, ordering diagnostic workup, counseling patient and documenting in the chart Orders: Orders Comprehensive Met. 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 Referrals General Surgery Referral L02.91 - Cutaneous abscess, unspecified Medications: New zolpidem may repeat once if no response in 30-60 minutes 5 mg PO BEDTIME 30 tabs 1RF NS Discontinued tramadol Discontinued Reason: Patient no longer taking 50 mg PO BID PRN 7 tabs 0RF pain methotrexate sodium Discontinued Reason: Doctor's Order 20 mg (8 x 2.5 mg) PO QWEEK 64 tabs 0RF Coding Level of Care Code Est Pt Level 5 (15839) Diagnoses Relapsing polychondritis of multiple sites M94.1 long-term methotrexate user Z79.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
== END 2023-08-13 14:37 | disposition home or self-care (01) ==
PROVIDERS: PCP Internal Medicine; Visit Provider Student in an Organized Health Care Education/Training Program
DX: M94.1 Relapsing polychondritis (principal); Z79.631 Long term (current) use of antimetabolite agent; Z79.52 Long term (current) use of systemic steroids; L02.212 Cutaneous abscess of back [any part, except buttock and flank]; F51.01 Primary insomnia
CPT/HCPCS: 99215

== ENCOUNTER → 2023-08-13 13:37 | Outpatient (BNVA) | payer BC, SELFPAY | PROVIDERS: PCP Internal Medicine; Visit Provider Student in an Organized Health Care Education/Training Program ==

== ENCOUNTER 2023-08-19 13:21 | Outpatient (AMB) | payer BC, SELFPAY ==
[2023-08-19 13:30] VITALS: BP 146/77; PULSE 107; BMI 39.3
--- NOTE | 2023-08-19 13:30 | MHC.OFFVIS ---
Intake Vital Signs 08/19/23 13:30 Height 5 ft 2 in Weight 215 lb BMI 39.3 BP 146/77 H Blood Pressure Location Rt brachial Position Sitting Pulse 107 H Intake Visit Reasons: subcutaneous abscess Intake Note: Patient referred for growth on back. Patient squeezed it and was able to get most of cyst contents. She is worried due to autoimmunity. 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 Required: No Accompanied by: Self / Same As Patient Allergies No Known Allergies Allergy (Unverified 08/19/23 13:33) Medication List - Last Reconciled 08/19/23 by Johan Rose MD acetaminophen (Tylenol) 650 mg PO Q4H PRN albuterol sulfate 90 mcg/actuation (ProAir HFA) 2 puffs inhalation Q6H PRN albuterol sulfate 2.5 mg inhalation Q4-6H PRN [id number] 160-9-4.8 mcg/actuation (Breztri Aerosphere) 2 inhalations inhalation BID cephalexin 500 mg PO TID cyclobenzaprine 10 mg PO TID PRN diclofenac sodium 1% (Arthritis Pain (diclofenac)) 2 grams topical QID epinephrine (EpiPen) 0.3 mg IM Q4H PRN famotidine 20 mg PO DAILY 30 days folic acid 1 mg PO DAILY methotrexate sodium 2.5 mg PO QWEEK montelukast (Singulair) 10 mg PO DAILY nebulizers As directed prednisone PO daily; Take 6 tabs daily x 3 days, then 5 tabs x 3 days, then 4 tabs x 3 days, then 3 tabs x 3 days, then 2 tabs daily x 3 days, then 1 tab x 3 days to complete. 18 days zolpidem 5 mg PO BEDTIME NS HPI HPI Comments History of Present Illness Details Patient presents for evaluation of left upper back sebaceous cyst. This has been causing symptoms for last 6 weeks. Patient has been on antibiotics and now presents here for further evaluation. Chart was reviewed patient evaluated. Patient has a recent diagnosis of some sort of immuno compromised state of which she is unclear of the diagnosis/same [facility] Medical History Tachycardia 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 Chronic back pain Heart palpitations SAMIRA (obstructive sleep apnea) GERD (gastroesophageal reflux disease) Obesity Asthma Surgical History H/O tubal ligation Family History Mother Diabetes Rheumatoid arthritis Father Asthma Social History Household Members: Children Alcohol intake: never Patient Tobacco Use Status: Former Tobacco user Current occupational status: employed 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 No fluctuance or abscess. Assessment & Plan Assessment & Plan (1) Sebaceous cyst: Code(s): L72.3 - Sebaceous cyst Plan The current plan is to treat this conservatively. Patient given local instructions for warm compresses. She will begin script for antibiotics. She was immediately sent for follow-up or p.r.n.. Once this acute process has resolved, and is not require I&D or further drainage, consideration for elective excision will be reviewed. All questions were answered. Medications: New cephalexin 500 mg PO TID 30 caps 0RF Coding Level of Care Code New Pt Level 4 (93308) Diagnoses Sebaceous cyst L72.3
== END 2023-08-19 13:45 | disposition home or self-care (01) ==
PROVIDERS: PCP Internal Medicine; Visit Provider Surgery
DX: L72.3 Sebaceous cyst (principal)
CPT/HCPCS: 99204

== ENCOUNTER → 2023-08-19 13:21 | Outpatient (BNVA) | payer BC, SELFPAY | PROVIDERS: PCP Internal Medicine; Visit Provider Surgery ==

== ENCOUNTER 2023-10-23 15:40 | Outpatient (REF) | payer BC, SELFPAY ==
[2023-10-23 16:34] LABS: MANUAL DIFF FLAG NO
[2023-10-23 17:26] LABS: Basophils Absolute Auto 0.1 X10*3/uL (0.0-0.2); Basophils Percent Auto 0.7 % (0-2); Eosinophils Absolute Auto 0.4 X10*3/uL (0.0-0.4); Hematocrit 38.3 % (37.0-47.0); Hemoglobin 12.5 g/dl (12.0-16.0); Imm Gran Pct Auto 1.1 % (0.0-0.4); Lymphocytes Absolute Auto 2.1 X10*3/uL (1.2-4.9); Lymphocytes Percent Auto 24.4 % (20-40); Mean Corpuscular HGB Conc 32.6 g/dl (31.0-35.0); Mean Corpuscular Hemoglobin 30.6 pg (27.0-33.0); Mean Corpuscular Volume 93.6 fL (80.0-98.0); Mean Platelet Volume 11.6 fL (9.4-12.3); Monocytes Absolute Auto 0.7 X10*3/uL (0.1-1.2); Monocytes Percent Auto 8.4 % (2-11); Neutrophils Absolute Auto 5.4 x10*3/uL (2.0-8.3); Neutrophils Percent Auto 61.4 % (45-73); Platelet Count 309 X10*3/uL (160-400); Red Blood Count 4.09 X10*6/uL (4.20-5.50); Red Cell Distribution Width 13.4 % (11.0-16.0); White Blood Count 8.8 X10*3/uL (4.8-10.8)
[2023-10-23 17:57] LABS: Alanine Aminotransferase 14 U/L (0-31); Albumin Level 3.9 g/dL (3.5-5.0); Alkaline Phosphatase 88 U/L (39-117); Anion Gap 12 (12-20); Aspartate Amino Transferase 21 U/L (5-31); Bilirubin Total 0.2 mg/dL (0.0-1.0); Blood Urea Nitrogen 20 mg/dL (9-16); C Reactive Protein 0.93 mg/dL (< or = 0.50); Calcium 9.1 mg/dL (8.4-10.2); Carbon Dioxide 24 mmol/L (22-29); Chloride 108 mmol/L (96-108); Estimated Glomerular Filt Rate > 60; Glucose Random 76 mg/dL (60-115); Potassium 3.8 mmol/L (3.3-5.1); Sodium 140 mmol/L (135-145); Total Protein 7.4 g/dL (6.5-8.0)
[2023-10-23 18:20] LABS: Erythrocyte Sedimentation Rate 18 MM/HR (0-20)
== END 2023-10-23 15:41 | disposition home or self-care (01) ==
LOC: HO.LAB 15:40
PROVIDERS: PCP Internal Medicine; Visit Provider Student in an Organized Health Care Education/Training Program
DX: M94.1 Relapsing polychondritis (principal); F51.01 Primary insomnia; J45.40 Moderate persistent asthma, uncomplicated; Z79.631 Long term (current) use of antimetabolite agent
CPT/HCPCS: 36415; 80053; 85025; 85652; 86140

== ENCOUNTER 2023-10-23 15:40 | Outpatient (AMB) | payer BC, SELFPAY ==
--- NOTE | 2023-10-23 15:42 | MHC.OFFVIS ---
Intake Vital Signs 10/23/23 15:43 Height 5 ft 2 in Weight 212 lb 8.41 oz BMI 38.9 BP 138/68 Blood Pressure Location Lt brachial Position Sitting Pulse 89 Pulse Source Pulse Oximeter Temp 97 F Temp Source Skin Pulse Oximetry (%) 99 Oxygen Delivery Method Room Air Intake Visit Reasons: relapsing polychondritis Intake Note: Pt last seen 08/13/23 presents today for follow up and test results. Reports multiple joint pains and hoarseness. Has been out of folic acid for a while. Requesting refill on folic acid and zolpidem. 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: No Accompanied by: Self / Same As Patient Allergies No Known Allergies Allergy (Unverified 10/23/23 15:42) Medication List - Last Reconciled 10/23/23 by Sienna Alan MD acetaminophen (Tylenol) 650 mg PO Q4H PRN albuterol sulfate 90 mcg/actuation (ProAir HFA) 2 puffs inhalation Q6H PRN albuterol sulfate 2.5 mg inhalation Q4-6H PRN [id number] 160-9-4.8 mcg/actuation (Breztri Aerosphere) 2 inhalations inhalation BID cephalexin 500 mg PO TID cyclobenzaprine 10 mg PO TID PRN diclofenac sodium 1% (Arthritis Pain (diclofenac)) 2 grams topical QID epinephrine (EpiPen) 0.3 mg IM Q4H PRN famotidine 20 mg PO DAILY 30 days folic acid 1 mg PO DAILY methotrexate sodium 2.5 mg PO QWEEK montelukast (Singulair) 10 mg PO DAILY nebulizers As directed prednisone PO daily; Take 6 tabs daily x 3 days, then 5 tabs x 3 days, then 4 tabs x 3 days, then 3 tabs x 3 days, then 2 tabs daily x 3 days, then 1 tab x 3 days to complete. 18 days zolpidem 5 mg PO BEDTIME NS HPI HPI Comments History of Present Illness Details 63-year-old female with relapsing polychondritis returns for follow-up. She is on methotrexate 15 mg weekly and prednisone 20 mg daily. She has been tapering down from 60 mg daily. She is not taking it as I prescribed that which is 10 mg daily. She states that she has been more short of breath and her voice is more hoarse. She is also complaining of generalized joint pain especially her wrists, forearms, shoulders, she is also having left knee pain and bilateral lower extremity numbness. She is also having sciatica symptoms affecting her left side. Ear swelling has resolved. She was evaluated by General surgery for the sebaceous cyst on her back. She was prescribed an antibiotic. No longer has drainage or signs of infection. 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 Review of Systems ENT Denies otalgia and Reports hoarseness Card Reports dyspnea Resp Reports dyspnea Musc Reports back pain, Reports arthralgias and Reports numbness Neuro Reports numbness Physical Exam Vital Signs: Last Vital Signs Temp 97 F 10/23/23 15:43 Pulse 89 10/23/23 15:43 BP 138/68 10/23/23 15:43 Pulse Ox 99 10/23/23 15:43 Oxygen Delivery Method Room Air 10/23/23 15:43 BMI result Body Mass Index 38.9 Const General: cooperative and healthy appearing Nutritional Appearance: obese morbidly obese Orientation/consciousness: patient oriented x3 Limitations: no limitations HEENT Other: No active ear chondritis today. No nasal chondritis Resp Effort & Inspection: normal respiratory effort and able to speak in complete sentences Auscultation: wheezes Cardio Rate: regular rate Rhythm: regular rhythm GI Inspection: No distended Palpation (GI): Soft to palpation and nontender Skin General skin exam: no rashes or lesions noted Neuro General: patient oriented x3 Extrem Other: Bilateral wrist tenderness and pain with flexion and extension Normal range of motion of elbows and shoulders without pain left knee flexion and pain with flexion Results Reviewed Results Reviewed: DATE OF SERVICE: 05/16/22 INDICATION: SPIROMETRY: FEV1 is 97 % predicted and an FVC? is 103 % predicted.The FEV1/FVC ratio is 94% of normal, No significant response to bronchodilators noted. Maximum voluntary ventilation 122% predicted. LUNG VOLUMES: Total lung capacity (TLC): 102% predicted. Residual volume (RV): 86% predicted RV/TLC ratio is 85% of normal End respiratory volume (ERV): 295% predicted DIFFUSION CAPACITY: DLCO 98% predicted. DlCO/VA 105% of predicted COMPARISONS: INTERPRETATION: This pulmonary function test shows normal spirometry and diffusion. This is a normal PFT Assessment & Plan Assessment & Plan (1) Relapsing polychondritis of multiple sites: Comment: dx 12/26 bilateral ear chondritis, costochondritis & seroneg RA MTX started 04/25 partially effective Code(s): M94.1 - Relapsing polychondritis Plan: This is a 63-year-old female with relapsing polychondritis who returns for follow-up. On methotrexate 15 mg weekly. She is also on prednisone 20 mg daily. Her bilateral ear chondritis has resolved. She is complaining of arthralgias, some of which are degenerative in nature. Increase methotrexate to 25 mg weekly and will change route to subcutaneous route Continue prednisone 20 mg daily for the next 2 weeks then reduce to 15 mg daily for 2 weeks then remain on 10 mg daily Patient continues to have significant arthralgias, will consider other options such as dapsone or TNF inhibitors. Labs today and before next visit in 2 months. (2) [facility] methotrexate user: Code(s): Z79.631 - [facility] (current) use of antimetabolite agent Plan: Monitor safety labs (3) Insomnia: Code(s): G47.00 - Insomnia, unspecified Qualifiers: Insomnia type: primary Qualified Code(s): F51.01 - Primary insomnia Plan: Patient stated that melatonin and Benadryl were not effective. Zolpidem effective. Will refill (4) Asthma: Code(s): J45.909 - Unspecified asthma, uncomplicated Qualifiers: Asthma severity: moderate Asthma persistence: persistent Asthma complication type: uncomplicated Qualified Code(s): J45.40 - Moderate persistent asthma, uncomplicated Plan: Patient is wheezing on exam today despite being on prednisone 20 mg daily, tapering down from a higher dose, on Breztri. She states that she has done really well for about a year on Nucala injections but there was a change in her insurance and she was having a 4087-4567 dollar co-pay. Nucala was discontinued Follow-up with Dr. 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 Panel 2 Months Z79.631 - terminal operations supervisor (current) use of antimetabolite agent Medications: New prednisone orally; 72 tabs 0RF methotrexate sodium 25 mg subcut QWEEK 10 mL 1RF insulin syringe-needle U-100 (BD Insulin Syringe) As directed 10 ea 1RF Refilled folic acid 1 mg PO DAILY 90 tabs 1RF zolpidem may repeat once if no response in 30-60 minutes 5 mg PO BEDTIME 30 tabs 0RF NS zolpidem may repeat once if no response in 30-60 minutes 5 mg PO BEDTIME 90 tabs 1RF NS Coding Level of Care Code Est Pt Level 5 (25520) Diagnoses Relapsing polychondritis of multiple sites M94.1 [facility] methotrexate user Z79.631 Primary insomnia F51.01 Insomnia type: primary Moderate persistent asthma without complication J45.40 Asthma severity: moderate Asthma persistence: persistent Asthma complication type: uncomplicated
[2023-10-23 15:43] VITALS: BP 138/68; PULSE 89; TEMP 36.1; O2SAT 99; BMI 38.9
== END 2023-10-23 16:16 | disposition home or self-care (01) ==
PROVIDERS: PCP Internal Medicine; Visit Provider Student in an Organized Health Care Education/Training Program
DX: M94.1 Relapsing polychondritis (principal); Z79.631 Long term (current) use of antimetabolite agent; F51.01 Primary insomnia; J45.40 Moderate persistent asthma, uncomplicated
CPT/HCPCS: 99215

== ENCOUNTER 2023-12-02 13:37 | Outpatient (AMB) | payer BC, SELFPAY ==
[2023-12-02 13:49] VITALS: PULSE 89; O2SAT 97; BMI 38.9
--- NOTE | 2023-12-02 13:49 | A.OFFVIS_ITS ---
Intake Vital Signs 12/02/23 13:49 Height 5 ft 2 in Weight 212 lb 8.41 oz BMI 38.9 Pulse 89 Pulse Source Pulse Oximeter Pulse Oximetry (%) 97 Oxygen Delivery Method Room Air Intake Visit Reasons: asthma Hop Separator Required: No Allergies No Known Allergies Allergy (Unverified 12/02/23 13:50) HPI HPI Comments History of Present Illness Details The patient is a 63 year woman apparently with a history of asthma in addition to connective tissue disease. Recently she was evaluated by Rheumatology and she was diagnosed with relapsing polychondritis. Mainly affecting the college of her ears. She has been on chronic dose of the prednisone higher and lower dosage is currently a baseline of 20 mg. She was recommended start methotrexate but she was concerned about the medication. I did encourage her to start the methotrexate. She can in consider starting at a lower dose 9 increasing in titrating up as tolerated. To the dose that she was recommended for her to take. The patient does have significant shortness of breath. She has been using Symbicort. She was also sent Trelegy but she has not been able to start as of yet because of a prior approval. The Symbicort is only partially helpful. Before that she had been on Nucala for her significant asthma but became very expensive and she could not tolerate the cost anymore. Her respiratory status is significantly worsen where she cannot do even activities of daily living due to shortness of breath. In the office we did go for brief walking oximetry. Quickly her oxygen decreased down to about 95% but more importantly a heart rate increased about 125 and she was visibly dyspneic we did dyspnea score of 6/10. The patient may have other pulmonary vascular conditions that may be impacting her respiratory status. The patient did have an echocardiogram with normal cardiac function which is reassuring however. I will going to go ahead and order blood work including a D-dimer to assess for pulmonary vascular conditions. In the meantime will going to optimize respiratory therapy by adding Incruse to her Symbicort. 07/28/2023 the patient is here for a pulmonary follow-up visit. She is been complaining of worsening year discomfort feels like a throbbing the left ear more than the right. Also having some discomfort in the larynx area. This has been going on for several days. She has been on the methotrexate. Unfortunately does not seem to be controlling the significant flare-ups from the relapsing polychondritis. We did review her imaging studies. She did have a CTA which was reassuring without any evidence of any active underlying parenchymal lung disease. No evidence of any thromboembolic disease. Patient's chest pain is overall better. Her breathing is also improved. She continues on the current respiratory therapy with good effect. She also has good adherence. Today because the significant polychondritis will provide her with Solu-Medrol intramuscularly and then the patient start prednisone. She is awaiting to hear from her department director. 12/02/2023 the patient is here for a pulmonary follow-up visit. She is still having difficulty with breathing. She has been Symbicort and Incruse. She is still requiring her rescue inhaler almost on a daily basis. She also has been on prednisone 10 mg daily. In part for her connective tissue disease. She has also been on methotrexate. The patient states that she had been on Nucala before and that was improving her allergies and her asthma symptoms significantly. Therefore she would like to see if we can have her go back on the Nucala at this time. Based on the fact that she is on chronic prednisone that is difficult to assess her eosinophils. The last time they were measuring her absolute count was 400 even on prednisone which is suggesting that is significantly much higher than that. Will try to submit for a prior approval for the Nucala at this time. In the meantime she did follow-up with Rheumatology and she will continue to follow closely regarding her connective tissue condition. She is having some chest discomfort but I did reassure her that it is primarily due to her cartilage inflammation. She does have a small pulmonary nodule that is unlikely to be symptomatic. She will need a repeat CT scan sometime in the summer of 2023. 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 Review of Systems Const Reports weakness and Reports weight gain Eyes Reports no additional complaints ENT Reports change in voice, Reports hoarseness, Reports nose pain and Reports other (ear pain and swelling) Card Reports chest pain, Denies dyspnea and Reports dyspnea on exertion Resp Reports cough, Reports pain on inspiration, Reports pain with cough, Denies dyspnea, Reports dyspnea on exertion and Reports wheezing Musc Reports arthralgias and Reports numbness Neuro Reports numbness and Reports weakness Psych Reports abnormal sleep pattern Aller/Immun Reports wheezing Physical Exam Vital Signs: Last Vital Signs Pulse 89 12/02/23 13:49 Pulse Ox 97 12/02/23 13:49 Oxygen Delivery Method Room Air 12/02/23 13:49 BMI result Body Mass Index 38.9 Const General: comfortable HEENT Head: Yes normocephalic Ears: external ear abnormal other (pain and swelling) Eyes General: appearance normal, both eyes and all related structures Neck Neck: Yes supple Chest Chest palpation & inspection: normal inspection of the chest Resp Effort & Inspection: normal respiratory effort Auscultation: no rales, no wheezes and diminished lung sounds Cardio Rate: tachycardic Rhythm: regular rhythm Heart sounds: S1 normal heart sound present and S2 normal heart sound present GI Palpation (GI): Soft to palpation Skin General skin exam: no rashes or lesions noted Extrem General: No clubbing and No cyanosis Assessment & Plan Assessment & Plan (1) Relapsing polychondritis of multiple sites: Comment: dx 12/26 bilateral ear chondritis, costochondritis & seroneg RA MTX started 04/25 partially effective Code(s): M94.1 - Relapsing polychondritis (2) Asthma: Code(s): J45.909 - Unspecified asthma, uncomplicated Qualifiers: Asthma complication type: uncomplicated Asthma persistence: persistent Asthma severity: moderate Qualified Code(s): J45.40 - Moderate persistent asthma, uncomplicated (3) Pulmonary nodule: Code(s): R91.1 - Solitary pulmonary nodule Plan continue symbicort continue Incruse Prednisone 10mg daily On MTX restart Nucala CT chest in 6 months F/U 4-6 months Orders: Orders CT chest wo IV con 6 Months R91.1 - Solitary pulmonary nodule Medications: New fluconazole 100 mg PO DAILY 14 tabs 0RF 14 days Coding Level of Care Code Est Pt Level 4 (80018) Diagnoses Relapsing polychondritis of multiple sites M94.1 Moderate persistent asthma without complication J45.40 Asthma complication type: uncomplicated Asthma persistence: persistent Asthma severity: moderate Pulmonary nodule R91.1 Time Spent (min) 17
== END 2023-12-02 14:39 | disposition home or self-care (01) ==
PROVIDERS: PCP Internal Medicine; Referring Provider Internal Medicine; Visit Provider Hospitalist
DX: M94.1 Relapsing polychondritis (principal); J45.40 Moderate persistent asthma, uncomplicated; R91.1 Solitary pulmonary nodule
CPT/HCPCS: 99214

== ENCOUNTER → 2023-12-02 13:37 | Outpatient (BNVA) | payer BC, SELFPAY | PROVIDERS: PCP Internal Medicine; Visit Provider Hospitalist | DX: M94.1 Relapsing polychondritis (principal) ==

== ENCOUNTER 2023-12-26 13:48 | Outpatient (REF) | payer BC, SELFPAY | END 2023-12-26 13:49 | disposition home or self-care (01) | LOC: HO.MDS 13:48 | PROVIDERS: Visit Provider Hospitalist | DX: J45.50 Severe persistent asthma, uncomplicated (principal) | CPT/HCPCS: 96372; J2182 ==

== ENCOUNTER 2024-01-01 14:21 | Outpatient (AMB) | payer BC, SELFPAY ==
--- NOTE | 2024-01-01 14:25 | MHC.OFFVIS ---
Intake Vital Signs 01/01/24 14:26 Height 5 ft 2 in Weight 213 lb 6.519 oz BMI 39.0 BP 122/66 Blood Pressure Location Rt brachial Position Sitting Pulse 83 Pulse Source Pulse Oximeter Pulse Oximetry (%) 98 Oxygen Delivery Method Room Air Intake Visit Reasons: Relapsing polychondritis Intake Note: Patient last seen 10/23/23 presents today for follow up and test results. Check Pilot Required: No Accompanied by: Self / Same As Patient Allergies No Known Allergies Allergy (Unverified 01/01/24 14:30) Medication List - Last Reconciled 01/01/24 by Sienna Alan MD acetaminophen (Tylenol) 650 mg PO Q4H PRN albuterol sulfate 90 mcg/actuation (ProAir HFA) 2 puffs inhalation Q6H PRN albuterol sulfate 2.5 mg inhalation Q4-6H PRN [id number] 160-9-4.8 mcg/actuation (Breztri Aerosphere) 2 inhalations inhalation BID cyclobenzaprine 10 mg PO TID PRN diclofenac sodium 1% (Arthritis Pain (diclofenac)) 2 grams topical QID epinephrine (EpiPen) 0.3 mg IM Q4H PRN famotidine 20 mg PO DAILY 30 days fluconazole 100 mg PO DAILY 14 days folic acid 1 mg PO DAILY insulin syringe-needle U-100 (BD Insulin Syringe) use weekly with methotrexate as prescribed mepolizumab 100 mg subcut Q4W methotrexate sodium 25 mg subcut QWEEK montelukast (Singulair) 10 mg PO DAILY nebulizers As directed prednisone 10 mg (2 x 5 mg) PO DAILY zolpidem 5 mg PO BEDTIME NS HPI HPI Comments History of Present Illness Details 63-year-old female with relapsing polychondritis returns for follow-up. She is on methotrexate 25 mg SQ weekly and prednisone 5 mg daily. She received her 1st dose of Nucala last week. Prescribed by Dr. Kuhn. She states that about a week and a half ago she started having increased asthma symptoms as well as pain and burning in the floor of her mouth and under her tongue as well as runny nose, she feels her sinuses on the right are congested, right ear is blocked. She has been feeling some low-grade fevers. She continues to go to work. She states that whenever she gets antibiotics she gets a vaginal fungal infection. Her right shoulder has been bothering her recently. She believes it is related to her position while typing. Has not had any ear swelling recently. She is also complaining of generalized joint pain especially her wrists, forearms, shoulders, she is also having left knee pain and bilateral lower extremity numbness. She is also having sciatica symptoms affecting her left side. Ear swelling has resolved. She was evaluated by General surgery for the sebaceous cyst on her back. She was prescribed an antibiotic. No longer has drainage or signs of infection. 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 Review of Systems Const Reports fatigue and Reports weakness ENT Reports mouth pain, Reports nasal congestion, Reports nasal discharge, Reports nasal obstruction and Reports sinus pain Resp Reports cough Musc Reports arthralgias Neuro Reports weakness Endo Reports fatigue Physical Exam Vital Signs: Last Vital Signs Pulse 83 01/01/24 14:26 BP 122/66 01/01/24 14:26 Pulse Ox 98 01/01/24 14:26 Oxygen Delivery Method Room Air 01/01/24 14:26 BMI result Body Mass Index 39.0 Const General: cooperative and healthy appearing Nutritional Appearance: obese morbidly obese Orientation/consciousness: patient oriented x3 Limitations: no limitations HEENT Other: No active ear chondritis today. No nasal chondritis Right maxillary sinus tenderness Mouth: moist mucous membranes Eyes Other: Left the conjunctival redness Resp Effort & Inspection: normal respiratory effort and able to speak in complete sentences Auscultation: clear to auscultation bilaterally and no wheezes Cardio Rate: regular rate Rhythm: regular rhythm Skin General skin exam: no rashes or lesions noted Neuro General: patient oriented x3 Extrem Other: Mildly limited range of motion of right shoulder No active synovitis otherwise Results Reviewed Results Reviewed: DATE OF SERVICE: 05/16/22 INDICATION: SPIROMETRY: FEV1 is 97 % predicted and an FVC? is 103 % predicted.The FEV1/FVC ratio is 94% of normal, No significant response to bronchodilators noted. Maximum voluntary ventilation 122% predicted. LUNG VOLUMES: Total lung capacity (TLC): 102% predicted. Residual volume (RV): 86% predicted RV/TLC ratio is 85% of normal End respiratory volume (ERV): 295% predicted DIFFUSION CAPACITY: DLCO 98% predicted. DlCO/VA 105% of predicted COMPARISONS: INTERPRETATION: This pulmonary function test shows normal spirometry and diffusion. This is a normal PFT Assessment & Plan Assessment & Plan (1) Relapsing polychondritis of multiple sites: Comment: dx 12/26 bilateral ear chondritis, costochondritis & seroneg RA MTX started 04/25 partially effective Code(s): M94.1 - Relapsing polychondritis Plan: This is a 63-year-old female with relapsing polychondritis who returns for follow-up. On methotrexate SQ 25 mg weekly. She is also on prednisone 5mg daily. On exam today. She does not have any chondritis. No active synovitis. Continue with methotrexate subcutaneously 25 mg weekly Folic acid 1 mg daily Continue prednisone 5 mg daily Labs before next visit in 2 months (2) nursing home methotrexate user: Code(s): Z79.631 - nursing home (current) use of antimetabolite agent Plan: Monitor safety labs (3) Insomnia: Code(s): G47.00 - Insomnia, unspecified Qualifiers: Insomnia type: primary Qualified Code(s): F51.01 - Primary insomnia Plan: Patient stated that melatonin and Benadryl were not effective. Zolpidem effective. Will refill (4) Asthma: Code(s): J45.909 - Unspecified asthma, uncomplicated Qualifiers: Asthma severity: moderate Asthma persistence: persistent Asthma complication type: uncomplicated Qualified Code(s): J45.40 - Moderate persistent asthma, uncomplicated Plan: Patient was wheezing on exam next visit despite being on prednisone. No collar prior authorization was started. Patient received her 1st dose last week. This is prescribed by Dr. Kuhn. Hopefully this will control her asthma Follow-up with Dr. Kuhn (5) Coryza: Code(s): J00 - Acute nasopharyngitis [common cold] Plan: Conjunctivitis, nasal congestion, cough as well as right maxillary sinusitis. Symptoms are likely viral. However given her immune suppression there is a chance this can progress to bacterial sinusitis. Patient states that whenever she receives antibiotics she gets a vaginal fungal infection Expectant management for now. Prescribed fluticasone inhaler. Advised patient to call the office if she feels that her sinusitis symptoms are progressing Plan I spent 46 minutes reviewing patient's chart, evaluating patient, ordering diagnostic workup, counseling patient and documenting in the chart Orders: Orders Complete Blood Count Auto Diff 2 Months M94.1 - Relapsing polychondritis C Reactive Protein 2 Months M94.1 - Relapsing polychondritis Erythrocyte Sedimentation Rate 2 Months M94.1 - Relapsing polychondritis Comprehensive Met. 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
[2024-01-01 14:26] VITALS: BP 122/66; PULSE 83; O2SAT 98; BMI 39.0
== END 2024-01-01 14:58 | disposition home or self-care (01) ==
PROVIDERS: PCP Internal Medicine; Visit Provider Student in an Organized Health Care Education/Training Program
DX: M94.1 Relapsing polychondritis (principal); Z79.631 Long term (current) use of antimetabolite agent; F51.01 Primary insomnia; J45.40 Moderate persistent asthma, uncomplicated; J00 Acute nasopharyngitis [common cold]
CPT/HCPCS: 99215

== ENCOUNTER → 2024-01-01 14:21 | Outpatient (BNVA) | payer BC, SELFPAY | PROVIDERS: PCP Internal Medicine; Visit Provider Student in an Organized Health Care Education/Training Program ==

== ENCOUNTER 2024-02-20 15:41 | Outpatient (REF) | payer BC, SELFPAY ==
[2024-02-20 15:56] LABS: MANUAL DIFF FLAG NO
[2024-02-20 17:32] LABS: Basophils Percent Auto 0.4 % (0-2); Eosinophils Absolute Auto 0.1 X10*3/uL (0.0-0.4); Eosinophils Percent Auto 0.6 % (0-4); Hematocrit 35.7 % (37.0-47.0); Hemoglobin 11.9 g/dl (12.0-16.0); Imm Gran Abs Auto 0.05 X10*3/uL (0.00-0.03); Imm Gran Pct Auto 0.5 % (0.0-0.4); Lymphocytes Absolute Auto 2.8 X10*3/uL (1.2-4.9); Lymphocytes Percent Auto 26.6 % (20-40); Mean Corpuscular HGB Conc 33.3 g/dl (31.0-35.0); Mean Corpuscular Hemoglobin 30.4 pg (27.0-33.0); Mean Corpuscular Volume 91.3 fL (80.0-98.0); Mean Platelet Volume 11.3 fL (9.4-12.3); Monocytes Absolute Auto 0.9 X10*3/uL (0.1-1.2); Monocytes Percent Auto 8.5 % (2-11); Neutrophils Absolute Auto 6.7 x10*3/uL (2.0-8.3); Neutrophils Percent Auto 63.4 % (45-73); Platelet Count 266 X10*3/uL (160-400); Red Blood Count 3.91 X10*6/uL (4.20-5.50); Red Cell Distribution Width 13.8 % (11.0-16.0); White Blood Count 10.6 X10*3/uL (4.8-10.8)
[2024-02-20 18:07] LABS: Alanine Aminotransferase 14 U/L (0-31); Albumin Level 3.9 g/dL (3.5-5.0); Alkaline Phosphatase 95 U/L (39-117); Anion Gap 8 (12-20); Aspartate Amino Transferase 18 U/L (5-31); Bilirubin Total 0.2 mg/dL (0.0-1.0); Blood Urea Nitrogen 23 mg/dL (9-16); C Reactive Protein 0.94 mg/dL (< or = 0.50); Calcium 9.1 mg/dL (8.4-10.2); Carbon Dioxide 29 mmol/L (22-29); Chloride 107 mmol/L (96-108); Estimated Glomerular Filt Rate > 60; Glucose Random 70 mg/dL (60-115); Potassium 3.6 mmol/L (3.3-5.1); Sodium 140 mmol/L (135-145); Total Protein 7.3 g/dL (6.5-8.0)
[2024-02-20 18:11] LABS: Erythrocyte Sedimentation Rate 25 MM/HR (0-20)
== END 2024-02-20 15:42 | disposition home or self-care (01) ==
LOC: HO.LAB 15:41
PROVIDERS: PCP Internal Medicine; Visit Provider Student in an Organized Health Care Education/Training Program
DX: M94.1 Relapsing polychondritis (principal); Z79.631 Long term (current) use of antimetabolite agent
CPT/HCPCS: 36415; 80053; 85025; 85652; 86140

== ENCOUNTER 2024-02-24 14:59 | Outpatient (AMB) | payer BC, SELFPAY ==
--- NOTE | 2024-02-24 15:10 | A.OFFVIS_ITS ---
Vital Signs 02/24/24 15:23 Height 5 ft 2 in Weight 214 lb 1.102 oz BMI 39.1 BP 120/62 Blood Pressure Location Rt brachial Position Sitting Pulse 80 Pulse Source Pulse Oximeter Pulse Oximetry (%) 97 Oxygen Delivery Method Room Air Intake Visit Reasons: relapsing polychondritis Intake Note: Patient last seen 01/01/24 presents today for follow up and test results. Lots of pain, pt has been off MTX for 2wks. awaiting safety labs. Labs done 02/19, needs new rx MTX Painting Supervisor Required: No Accompanied by: Self / Same As Patient Allergies No Known Allergies Allergy (Unverified 01/01/24 14:30) Medication List - Last Reconciled 02/24/24 by Sienna Alan MD acetaminophen (Tylenol) 650 mg PO Q4H PRN albuterol sulfate 90 mcg/actuation (ProAir HFA) 2 puffs inhalation Q6H PRN albuterol sulfate 2.5 mg inhalation Q4-6H PRN [id number] 160-9-4.8 mcg/actuation (Breztri Aerosphere) 2 inhalations inhalation BID cyclobenzaprine 10 mg PO TID PRN diclofenac sodium 1% (Arthritis Pain (diclofenac)) 2 grams topical QID epinephrine (EpiPen) 0.3 mg IM Q4H PRN famotidine 20 mg PO DAILY 30 days fluconazole 100 mg PO DAILY 14 days fluticasone propionate 50 mcg/actuation 1 spray intranasal BID folic acid 1 mg PO DAILY insulin syringe-needle U-100 (BD Insulin Syringe) use weekly with methotrexate as prescribed lidocaine HCl 2% (Lidocaine Viscous) 1 appl mucous membrane TID PRN mepolizumab 100 mg subcut Q4W methotrexate sodium 25 mg subcut QWEEK montelukast (Singulair) 10 mg PO DAILY nebulizers As directed prednisone 10 mg (2 x 5 mg) PO DAILY prednisone 20 mg PO DAILY 14 days zolpidem 5 mg PO BEDTIME NS HPI Comments Details: 63-year-old female with relapsing polychondritis returns for follow-up. She states that she was doing fairly well until about 2 weeks ago when she ran out of her methotrexate. Methotrexate could not be refilled as she needed safety labs. She stated that she was doing quite well overall with improved joint pain, chest pain, she did not have any flare-ups of ear pain. Her asthma has been doing quite well on Nucala 100 mg q.4 weeks prescribed by Pulmonary. She has been taking prednisone 10 mg daily. Over the last 2 weeks she has been having recurrent ear discomfort, ear pain. Discomfort and achiness in her upper chest , neck and legs. She is also complaining of generalized joint pain especially her wrists, forearms, shoulders, she is also having left knee pain and bilateral lower extremity numbness. She is also having sciatica symptoms affecting her left side. Ear swelling has resolved. She was evaluated by General surgery for the sebaceous cyst on her back. She was prescribed an antibiotic. No longer has drainage or signs of infection. 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 Review of Systems Const Reports fatigue and Reports weakness Musc Reports arthralgias Neuro Reports weakness Endo Reports fatigue Physical Exam Vital Signs: Last Vital Signs Pulse 80 02/24/24 15:23 BP 120/62 02/24/24 15:23 Pulse Ox 97 02/24/24 15:23 Oxygen Delivery Method Room Air 02/24/24 15:23 BMI result Body Mass Index 39.1 Const General: cooperative and healthy appearing Nutritional Appearance: obese morbidly obese Orientation/consciousness: patient oriented x3 Limitations: no limitations HEENT Other: Bilateral ear erythema, mild tenderness with sparing of ear lobule Resp Effort & Inspection: normal respiratory effort and able to speak in complete sentences Auscultation: clear to auscultation bilaterally and no wheezes Cardio Rate: regular rate Rhythm: regular rhythm Skin General skin exam: no rashes or lesions noted Neuro General: patient oriented x3 Extrem Other: No active synovitis both hands and wrists Left knee pain with full flexion-extension Left ankle tenderness not much swelling Results Reviewed Results Reviewed: DATE OF SERVICE: 05/16/22 INDICATION: SPIROMETRY: FEV1 is 97 % predicted and an FVC? is 103 % predicted.The FEV1/FVC ratio is 94% of normal, No significant response to bronchodilators noted. Maximum voluntary ventilation 122% predicted. LUNG VOLUMES: Total lung capacity (TLC): 102% predicted. Residual volume (RV): 86% predicted RV/TLC ratio is 85% of normal End respiratory volume (ERV): 295% predicted DIFFUSION CAPACITY: DLCO 98% predicted. DlCO/VA 105% of predicted COMPARISONS: INTERPRETATION: This pulmonary function test shows normal spirometry and diffusion. This is a normal PFT Assessment & Plan Assessment & Plan (1) Relapsing polychondritis of multiple sites: Comment: dx 12/26 bilateral ear chondritis, costochondritis & seroneg RA MTX started 04/25 partially effective advanced to subcu 25 mg weekly effective Code(s): M94.1 - Relapsing polychondritis Category: Medical Plan: This is a 63-year-old female with relapsing polychondritis who returns for follow-up. Patient was doing quite well until about 2 weeks ago when she ran out of her methotrexate, on exam today she has bilateral ear chondritis as well as inflammatory arthritis Advised patient on the importance of medication compliance and compliance with regular blood work every 3 months Continue with methotrexate subcutaneously 25 mg weekly Folic acid 1 mg daily Patient states that it takes her about a week to get the medication from the specialty pharmacy. 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 Zolpidem effect yancy. Continue with zolpidem (4) Asthma: Code(s): J45.909 - Unspecified asthma, uncomplicated Category: Medical Qualifiers: Asthma severity: moderate Asthma persistence: persistent Asthma complication type: uncomplicated Qualified Code(s): J45.40 - Moderate persistent asthma, uncomplicated Plan: Much better controlled on mepolizumab 100 mg q.4 weeks prescribed by tool honing machine set up operator Plan I spent 26 minutes reviewing patient's chart, evaluating patient, ordering diagnostic workup, counseling patient and documenting in the chart Orders: Orders Complete Blood Count Auto Diff 3 Months M94.1 - Relapsing polychondritis Comprehensive Met. 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
[2024-02-24 15:23] VITALS: BP 120/62; PULSE 80; O2SAT 97; BMI 39.1
== END 2024-02-24 16:06 | disposition home or self-care (01) ==
LOC: HO.RHE 14:59
PROVIDERS: PCP Internal Medicine; Visit Provider Student in an Organized Health Care Education/Training Program
DX: M94.1 Relapsing polychondritis (principal); Z79.631 Long term (current) use of antimetabolite agent; F51.01 Primary insomnia; J45.40 Moderate persistent asthma, uncomplicated
CPT/HCPCS: 99214

== ENCOUNTER → 2024-02-24 14:59 | Outpatient (BNVA) | payer BC, SELFPAY | PROVIDERS: PCP Internal Medicine; Visit Provider Student in an Organized Health Care Education/Training Program ==

== ENCOUNTER 2024-04-27 13:57 | Outpatient (AMB) | payer BC, SELFPAY ==
--- NOTE | 2024-04-27 14:03 | MHC.OFFVIS ---
Vital Signs 04/27/24 14:04 Height 5 ft 2 in Weight 214 lb 1.102 oz BMI 39.1 Pulse 89 Pulse Source Pulse Oximeter Pulse Oximetry (%) 98 Oxygen Delivery Method Room Air Intake Visit Reasons: asthma Acid Filler Required: No Allergies No Known Allergies Allergy (Unverified 04/27/24 14:07) HPI Comments Details: The patient is a 63 year woman apparently with a history of asthma in addition to connective tissue disease. Recently she was evaluated by Rheumatology and she was diagnosed with relapsing polychondritis. Mainly affecting the college of her ears. She has been on chronic dose of the prednisone higher and lower dosage is currently a baseline of 20 mg. She was recommended start methotrexate but she was concerned about the medication. I did encourage her to start the methotrexate. She can in consider starting at a lower dose 9 increasing in titrating up as tolerated. To the dose that she was recommended for her to take. The patient does have significant shortness of breath. She has been using Symbicort. She was also sent Trelegy but she has not been able to start as of yet because of a prior approval. The Symbicort is only partially helpful. Before that she had been on Nucala for her significant asthma but became very expensive and she could not tolerate the cost anymore. Her respiratory status is significantly worsen where she cannot do even activities of daily living due to shortness of breath. In the office we did go for brief walking oximetry. Quickly her oxygen decreased down to about 95% but more importantly a heart rate increased about 125 and she was visibly dyspneic we did dyspnea score of 6/10. The patient may have other pulmonary vascular conditions that may be impacting her respiratory status. The patient did have an echocardiogram with normal cardiac function which is reassuring however. I will going to go ahead and order blood work including a D-dimer to assess for pulmonary vascular conditions. In the meantime will going to optimize respiratory therapy by adding Incruse to her Symbicort. 07/28/2023 the patient is here for a pulmonary follow-up visit. She is been complaining of worsening year discomfort feels like a throbbing the left ear more than the right. Also having some discomfort in the larynx area. This has been going on for several days. She has been on the methotrexate. Unfortunately does not seem to be controlling the significant flare-ups from the relapsing polychondritis. We did review her imaging studies. She did have a CTA which was reassuring without any evidence of any active underlying parenchymal lung disease. No evidence of any thromboembolic disease. Patient's chest pain is overall better. Her breathing is also improved. She continues on the current respiratory therapy with good effect. She also has good adherence. Today because the significant polychondritis will provide her with Solu-Medrol intramuscularly and then the patient start prednisone. She is awaiting to hear from her machine cloth measurer. 12/02/2023 the patient is here for a pulmonary follow-up visit. She is still having difficulty with breathing. She has been Symbicort and Incruse. She is still requiring her rescue inhaler almost on a daily basis. She also has been on prednisone 10 mg daily. In part for her connective tissue disease. She has also been on methotrexate. The patient states that she had been on Nucala before and that was improving her allergies and her asthma symptoms significantly. Therefore she would like to see if we can have her go back on the Nucala at this time. Based on the fact that she is on chronic prednisone that is difficult to assess her eosinophils. The last time they were measuring her absolute count was 400 even on prednisone which is suggesting that is significantly much higher than that. Will try to submit for a prior approval for the Nucala at this time. In the meantime she did follow-up with Rheumatology and she will continue to follow closely regarding her connective tissue condition. She is having some chest discomfort but I did reassure her that it is primarily due to her cartilage inflammation. She does have a small pulmonary nodule that is unlikely to be symptomatic. She will need a repeat CT scan sometime in the summer of 2023. 04/27/2024 the patient is here for a pulmonary follow-up visit. The patient has been doing very well from a respiratory status. She started the Nucala injections and they have been very affecting beneficial. She does not have any significant wheezing or chest tightness and she started the injections. She has been able to back off on some of the Symbicort in the Incruse as well. Although she still struggling with her relapsing polychondritis. She has been the methotrexate. She lost the here and she is very upset about that. The patient also had to increase her prednisone up to 20 mg because she is struggling with her arthritic 80s and discomfort. She needs to follow-up closely with Rheumatology. She would like to come off the methotrexate. Does discussion she needs to have with rheumatology at this time. No imaging studies at this time to review. The patient will continue with the Nucala injections at this time. 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 Review of Systems Const Reports weight gain Eyes Reports no additional complaints ENT Reports change in voice, Reports hoarseness, Reports nose pain and Reports other (ear pain and swelling) Card Reports chest pain, Denies dyspnea and Denies dyspnea on exertion Resp Reports cough, Reports pain on inspiration, Reports pain with cough, Denies dyspnea, Denies dyspnea on exertion and Denies wheezing Musc Reports arthralgias and Reports numbness Neuro Reports numbness Psych Reports abnormal sleep pattern Aller/Immun Denies wheezing Physical Exam Vital Signs: Last Vital Signs Pulse 89 04/27/24 14:04 Pulse Ox 98 04/27/24 14:04 Oxygen Delivery Method Room Air 04/27/24 14:04 BMI result Body Mass Index 39.1 Const General: comfortable HEENT Head: Yes normocephalic Ears: external ear abnormal other (pain and swelling) Eyes General: appearance normal, both eyes and all related structures Neck Neck: Yes supple Chest Chest palpation & inspection: normal inspection of the chest Resp Effort & Inspection: normal respiratory effort Auscultation: clear to auscultation bilaterally, no rales and no wheezes Cardio Rate: tachycardic Rhythm: regular rhythm Heart sounds: S1 normal heart sound present and S2 normal heart sound present GI Palpation (GI): Soft to palpation Skin General skin exam: no rashes or lesions noted Extrem General: No clubbing and No cyanosis Assessment & Plan Assessment & Plan (1) Relapsing polychondritis of multiple sites: Comment: dx 12/26 bilateral ear chondritis, costochondritis & seroneg RA MTX started 04/25 partially effective advanced to subcu 25 mg weekly effective Code(s): M94.1 - Relapsing polychondritis Category: Medical (2) Asthma: Code(s): J45.909 - Unspecified asthma, uncomplicated Category: Medical Qualifiers: Asthma complication type: uncomplicated Asthma persistence: persistent Asthma severity: moderate Qualified Code(s): J45.40 - Moderate persistent asthma, uncomplicated (3) Pulmonary nodule: Code(s): R91.1 - Solitary pulmonary nodule Category: Medical Plan continue symbicort continue Incruse Prednisone On MTX continue Nucala F/U 6-8 months Coding Level of Care Code Est Pt Level 4 (40319) Diagnoses Relapsing polychondritis of multiple sites M94.1 Moderate persistent asthma without complication J45.40 Asthma complication type: uncomplicated Asthma persistence: persistent Asthma severity: moderate Pulmonary nodule R91.1 Time Spent (min) 17
[2024-04-27 14:04] VITALS: PULSE 89; O2SAT 98; BMI 39.1
== END 2024-04-27 14:30 | disposition home or self-care (01) ==
PROVIDERS: PCP Internal Medicine; Visit Provider Hospitalist
DX: M94.1 Relapsing polychondritis (principal); J45.40 Moderate persistent asthma, uncomplicated; R91.1 Solitary pulmonary nodule
CPT/HCPCS: 99214

== ENCOUNTER → 2024-04-27 13:57 | Outpatient (BNVA) | payer BC, SELFPAY | PROVIDERS: PCP Internal Medicine; Visit Provider Hospitalist | DX: M94.1 Relapsing polychondritis (principal) ==

== ENCOUNTER 2024-06-11 13:57 | Outpatient (AMB) | payer BC, SELFPAY ==
--- NOTE | 2024-06-11 14:04 | A.OFFVIS_ITS ---
Vital Signs 06/11/24 14:09 Height 5 ft 2 in Weight 205 lb 0.478 oz BMI 37.5 BP 118/80 Blood Pressure Location Rt brachial Position Sitting Pulse 84 Pulse Source Pulse Oximeter Pulse Oximetry (%) 98 Oxygen Delivery Method Room Air Intake Visit Reasons: Relapsing polychondritis/CM Intake Note: Patient presents for relapsing polychondritis. Allergies methotrexate Adverse Reaction (Intermediate, Verified 06/11/24 14:30) GI upset Medication List - Last Reconciled 06/11/24 by Sienna Alan MD acetaminophen (Tylenol) 650 mg PO Q4H PRN albuterol sulfate 90 mcg/actuation (ProAir HFA) 2 puffs inhalation Q6H PRN albuterol sulfate 2.5 mg inhalation Q4-6H PRN [id number] 160-9-4.8 mcg/actuation (Breztri Aerosphere) 2 inhalations inhalation BID cyclobenzaprine 10 mg PO TID PRN diclofenac sodium 1% (Arthritis Pain (diclofenac)) 2 grams topical QID epinephrine (EpiPen) 0.3 mg IM Q4H PRN famotidine 20 mg PO DAILY 30 days fluconazole 100 mg PO DAILY 14 days fluticasone propionate 50 mcg/actuation 1 spray intranasal BID folic acid 1 mg PO DAILY insulin syringe-needle U-100 (BD Insulin Syringe) use weekly with methotrexate as prescribed lidocaine HCl 2% (Lidocaine Viscous) 1 appl mucous membrane TID PRN montelukast (Singulair) 10 mg PO DAILY nebulizers As directed prednisone 20 mg PO DAILY 14 days zolpidem 5 mg PO BEDTIME NS HPI Comments Details: 64-year-old female with relapsing polychondritis returns for follow-up. She states that her asthma was doing fairly well as she was getting her Nucala regularly however there was an issue with her insurance and her injection was delayed by 3 weeks. She also ran out of her prednisone. She ran out about 3 days ago. She is wheezing today and short of breath. She also discontinued her methotrexate about a month ago due to going GI upset and hair loss. Today she is having use body aches, pain in her right wrist, right ankle, both hips. She is also complaining of generalized joint pain especially her wrists, forearms, shoulders, she is also having left knee pain and bilateral lower extremity numbness. She is also having sciatica symptoms affecting her left side. Ear swelling has resolved. She was evaluated by General surgery for the sebaceous cyst on her back. She was prescribed an antibiotic. No longer has drainage or signs of infection. 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 Female Reproductive History Menstrual Total pregnancies: 4 Number of Living Children: 3 Review of Systems Const Reports fatigue and Reports weakness Card Reports dyspnea on exertion Resp Reports cough, Reports dyspnea on exertion and Reports wheezing Musc Reports myalgias, Reports arthralgias and Denies joint swelling Neuro Reports weakness Endo Reports fatigue Aller/Immun Reports wheezing Physical Exam Vital Signs: Last Vital Signs Pulse 84 06/11/24 14:09 BP 118/80 06/11/24 14:09 Pulse Ox 98 06/11/24 14:09 Oxygen Delivery Method Room Air 06/11/24 14:09 BMI result Body Mass Index 37.5 Const General: cooperative and healthy appearing Nutritional Appearance: obese morbidly obese Orientation/consciousness: patient oriented x3 Limitations: no limitations HEENT Other: Left ear erythema mild tenderness with sparing of ear lobule Resp Effort & Inspection: able to speak in complete sentences and audible wheezes Auscultation: wheezes Cardio Rate: regular rate Rhythm: regular rhythm Skin General skin exam: no rashes or lesions noted Neuro General: patient oriented x3 Extrem Other: Right wrist pain with full flexion-extension Right ankle tenderness Bilateral hip pain with straight leg leg raise test Results Reviewed Results Reviewed: DATE OF SERVICE: 05/16/22 INDICATION: SPIROMETRY: FEV1 is 97 % predicted and an FVC? is 103 % predicted.The FEV1/FVC ratio is 94% of normal, No significant response to bronchodilators noted. Maximum voluntary ventilation 122% predicted. LUNG VOLUMES: Total lung capacity (TLC): 102% predicted. Residual volume (RV): 86% predicted RV/TLC ratio is 85% of normal End respiratory volume (ERV): 295% predicted DIFFUSION CAPACITY: DLCO 98% predicted. DlCO/VA 105% of predicted COMPARISONS: INTERPRETATION: This pulmonary function test shows normal spirometry and diffusion. 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 Patient could not tolerate methotrexate due to hair loss and significant GI upset. She continues to have active synovitis. Will need to switch DMARDs. Has risks and benefits of Enbrel patient agreed to proceed. Will start prior authorization for Enbrel Due to current asthma exacerbation, patient needs prednisone taper, start prednisone 40 mg daily for 1 week then remain on 20 mg daily for 1 month. Plan to reduce to 15 mg daily afterwards Labs before next visit in 10 weeks (2) Relapsing polychondritis of multiple sites: Comment: dx 12/26 bilateral ear chondritis, costochondritis & seroneg RA Code(s): M94.1 - Relapsing polychondritis Category: Medical Plan: Hopefully Enbrel will help her bilateral ear chondritis (3) High risk medication use: Code(s): Z79.899 - Other ad terminal makeup operator (current) drug therapy Category: Medical Plan: Side effects of Enbrel were discussed with the patient in detail including increased risk of infection, demyelinating disease, reactivation of latent TB, possible increased risk of solid and skin tumors. Patient fully aware. Advised patient to seek medical care MICHELLE if patient has an infection and advised patient to stop the medication until the infection is resolved. There is some theoretical further increase in risk of infection as patient is also on Nucala. We will monitor patient for infections (4) Asthma: Code(s): J45.909 - Unspecified asthma, uncomplicated Category: Medical Qualifiers: Asthma severity: moderate Asthma persistence: persistent Asthma complication type: uncomplicated Qualified Code(s): J45.40 - Moderate persistent asthma, uncomplicated Plan: Her asthma was much better controlled since mepolizumab was started however per patient there was an issue with her insurance and her mepolizumab was delayed. She has exacerbation today. Prednisone taper prescribed Follow-up with Dr. Kuhn Plan I spent 26 minutes reviewing patient's chart, evaluating patient, ordering diagnostic workup, counseling patient and documenting in the chart Orders: Orders Complete Blood Count Auto Diff 10 Weeks M06.00 - Rheumatoid arthritis without rheumatoid factor, unspecified site, Z79.899 - Other ad terminal makeup operator (current) drug therapy Comprehensive Met. Panel 10 Weeks M06.00 - Rheumatoid arthritis without rheumatoid factor, unspecified site, Z79.899 - Other group home (current) drug therapy C Reactive Protein 10 Weeks M06.00 - Rheumatoid arthritis without rheumatoid factor, unspecified site, Z79.899 - Other group home (current) drug therapy Erythrocyte Sedimentation Rate 10 Weeks M06.00 - Rheumatoid arthritis without rheumatoid factor, unspecified site, Z79.899 - Other group home (current) drug therapy Medications: New Enbrel SureClick (etanercept) 50 mg subcut QWEEK 4 mL 2RF NS Changed From prednisone 20 mg PO DAILY 14 days 14 tabs 0RF To prednisone orally; 45 tabs 0RF Coding Level of Care Code Est Pt Level 4 (17105) Diagnoses Seronegative rheumatoid arthritis M06.00 Relapsing polychondritis of multiple sites M94.1 High risk medication use Z79.899 Moderate persistent asthma without complication J45.40 Asthma severity: moderate Asthma persistence: persistent Asthma complication type: uncomplicated
[2024-06-11 14:09] VITALS: BP 118/80; PULSE 84; O2SAT 98; BMI 37.5
== END 2024-06-11 15:11 | disposition home or self-care (01) ==
PROVIDERS: PCP Internal Medicine; Visit Provider Student in an Organized Health Care Education/Training Program
DX: M06.00 Rheumatoid arthritis without rheumatoid factor, unspecified site (principal); M94.1 Relapsing polychondritis; Z79.899 Other long term (current) drug therapy; J45.40 Moderate persistent asthma, uncomplicated
CPT/HCPCS: 99214

== ENCOUNTER → 2024-06-11 13:57 | Outpatient (BNVA) | payer BC, SELFPAY | PROVIDERS: PCP Internal Medicine; Visit Provider Student in an Organized Health Care Education/Training Program ==

== ENCOUNTER 2024-08-10 15:18 | Outpatient (REF) | payer BC, SELFPAY ==
[2024-08-10 15:46] LABS: MANUAL DIFF FLAG NO
[2024-08-10 17:03] LABS: Basophils Absolute Auto 0.1 X10*3/uL (0.0-0.2); Basophils Percent Auto 0.8 % (0-2); Eosinophils Absolute Auto 0.2 X10*3/uL (0.0-0.4); Eosinophils Percent Auto 2.3 % (0-4); Hematocrit 37.6 % (37.0-47.0); Hemoglobin 12.6 g/dl (12.0-16.0); Imm Gran Abs Auto 0.02 X10*3/uL (0.00-0.03); Imm Gran Pct Auto 0.3 % (0.0-0.4); Lymphocytes Percent Auto 25.4 % (20-40); Mean Corpuscular HGB Conc 33.5 g/dl (31.0-35.0); Mean Corpuscular Hemoglobin 29.7 pg (27.0-33.0); Mean Corpuscular Volume 88.7 fL (80.0-98.0); Mean Platelet Volume 11.6 fL (9.4-12.3); Monocytes Absolute Auto 0.7 X10*3/uL (0.1-1.2); Monocytes Percent Auto 8.8 % (2-11); Neutrophils Percent Auto 62.4 % (45-73); Platelet Count 240 X10*3/uL (160-400); Red Blood Count 4.24 X10*6/uL (4.20-5.50); Red Cell Distribution Width 12.8 % (11.0-16.0); White Blood Count 7.9 X10*3/uL (4.8-10.8)
[2024-08-10 17:38] LABS: Alanine Aminotransferase 13 U/L (0-31); Alkaline Phosphatase 78 U/L (39-117); Anion Gap 11 (12-20); Aspartate Amino Transferase 16 U/L (5-31); Bilirubin Total 0.2 mg/dL (0.0-1.0); Blood Urea Nitrogen 11 mg/dL (9-16); C Reactive Protein 0.85 mg/dL (< or = 0.50); Calcium 9.9 mg/dL (8.4-10.2); Carbon Dioxide 28 mmol/L (22-29); Chloride 107 mmol/L (96-108); Estimated Glomerular Filt Rate > 60; Glucose Random 87 mg/dL (60-115); Potassium 3.5 mmol/L (3.3-5.1); Sodium 142 mmol/L (135-145); Total Protein 7.4 g/dL (6.5-8.0)
[2024-08-10 17:48] LABS: Erythrocyte Sedimentation Rate 27 MM/HR (0-20)
== END 2024-08-10 15:19 | disposition home or self-care (01) ==
LOC: HO.LAB 15:18
PROVIDERS: PCP Internal Medicine; Visit Provider Student in an Organized Health Care Education/Training Program
DX: M94.1 Relapsing polychondritis (principal); M06.00 Rheumatoid arthritis without rheumatoid factor, unspecified site; Z79.899 Other long term (current) drug therapy
CPT/HCPCS: 36415; 80053; 85025; 85652; 86140

== ENCOUNTER 2024-08-10 15:51 | Outpatient (AMB) | payer BC, SELFPAY ==
--- NOTE | 2024-08-10 15:54 | MHC.OFFVIS ---
Vital Signs 08/10/24 15:57 Height 5 ft 2 in Weight 190 lb 7.67 oz BMI 34.8 BP 115/62 Blood Pressure Location Lt brachial Position Sitting Pulse 93 Pulse Source Pulse Oximeter Pulse Oximetry (%) 97 Oxygen Delivery Method Room Air Intake Visit Reasons: Relapsing polychondritis/CM Intake Note: Patient presents for Relapsing Polychondritis. Allergies methotrexate Adverse Reaction (Intermediate, Verified 08/10/24 15:58) GI upset Medication List - Last Reconciled 08/10/24 by Sienna Alan MD acetaminophen (Tylenol) 650 mg PO Q4H PRN albuterol sulfate 90 mcg/actuation (ProAir HFA) 2 puffs inhalation Q6H PRN albuterol sulfate 2.5 mg inhalation Q4-6H PRN [id number] 160-9-4.8 mcg/actuation (Breztri Aerosphere) 2 inhalations inhalation BID cyclobenzaprine 10 mg PO TID PRN diclofenac sodium 1% (Arthritis Pain (diclofenac)) 2 grams topical QID epinephrine (EpiPen) 0.3 mg IM Q4H PRN famotidine 20 mg PO DAILY 30 days fluconazole 100 mg PO DAILY 14 days fluticasone propionate 50 mcg/actuation 1 spray intranasal BID insulin syringe-needle U-100 (BD Insulin Syringe) use weekly with methotrexate as prescribed leflunomide 10 mg PO DAILY lidocaine HCl 2% (Lidocaine Viscous) 1 appl mucous membrane TID PRN montelukast (Singulair) 10 mg PO DAILY nebulizers As directed prednisone 15 mg (3 x 5 mg) PO DAILY zolpidem 5 mg PO BEDTIME NS HPI Comments Details: 64-year-old female with relapsing polychondritis returns for follow-up. She is not doing well. She states that her Nucala has been denied by her insurance. Asthma is getting worse. Getting more short of breath. 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 Female Reproductive History Menstrual Total pregnancies: 4 Number of Living Children: 3 Review of Systems Const Reports fatigue and Reports weakness Card Reports dyspnea on exertion Resp Reports cough, Reports dyspnea on exertion and Reports wheezing Musc Reports myalgias, Reports arthralgias and Denies joint swelling Neuro Reports weakness Endo Reports fatigue Aller/Immun Reports wheezing Physical Exam Vital Signs: Last Vital Signs Pulse 93 08/10/24 15:57 BP 115/62 08/10/24 15:57 Pulse Ox 97 08/10/24 15:57 Oxygen Delivery Method Room Air 08/10/24 15:57 BMI result Body Mass Index 34.8 Const General: cooperative and healthy appearing Nutritional Appearance: obese morbidly obese Orientation/consciousness: patient oriented x3 Limitations: no limitations HEENT Other: Very subtle Left ear erythema , no tenderness with sparing of ear lobule Chest Other: Chest wall tenderness Resp Effort & Inspection: able to speak in complete sentences Auscultation: wheezes lower bilaterally Cardio Rate: regular rate Rhythm: regular rhythm Skin General skin exam: no rashes or lesions noted Neuro General: patient oriented x3 Extrem Other: Multiple tender joints but no swelling Results Reviewed Results Reviewed: DATE OF SERVICE: 05/16/22 INDICATION: SPIROMETRY: FEV1 is 97 % predicted and an FVC? is 103 % predicted.The FEV1/FVC ratio is 94% of normal, No significant response to bronchodilators noted. Maximum voluntary ventilation 122% predicted. LUNG VOLUMES: Total lung capacity (TLC): 102% predicted. Residual volume (RV): 86% predicted RV/TLC ratio is 85% of normal End respiratory volume (ERV): 295% predicted DIFFUSION CAPACITY: DLCO 98% predicted. DlCO/VA 105% of predicted COMPARISONS: INTERPRETATION: This pulmonary function test shows normal spirometry and diffusion. 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 Patient could not tolerate methotrexate due to hair loss and significant GI upset. She continues to have active synovitis. Will need to switch DMARDs. Last visit we discussed Enbrel. It was approved but patient has a very high co-pay. I provided patient with the paperwork for patient assistance. Discussed risks and benefits of leflunomide. Patient agreed to proceed. Start leflunomide 10 mg daily for 1 month check blood work, if no transaminitis, I will increase to 20 mg She remains on prednisone 15 mg daily Labs in 1 month and before next visit in 2 months (2) Relapsing polychondritis of multiple sites: Comment: dx 12/26 bilateral ear chondritis, costochondritis & seroneg RA Code(s): M94.1 - Relapsing polychondritis Category: Medical Plan: On leflunomide (3) High risk medication use: Code(s): Z79.899 - Other intermediate designer (current) drug therapy Category: Medical Plan: Monitor safety labs for leflunomide (4) Asthma: Code(s): J45.909 - Unspecified asthma, uncomplicated Category: Medical Qualifiers: Asthma severity: moderate Asthma persistence: persistent Asthma complication type: uncomplicated Qualified Code(s): J45.40 - Moderate persistent asthma, uncomplicated Plan: Her asthma was much better controlled since mepolizumab was started however per patient there was an issue with her insurance and her mepolizumab was delayed. She is having difficulties getting Nucala approved. She is wheezing on exam today. Follow-up with Dr. Kuhn Plan I spent 26 minutes reviewing patient's chart, evaluating patient, ordering diagnostic workup, counseling patient and documenting in the chart Orders: Orders Complete Blood Count Auto Diff 1 Month M06.00 - Rheumatoid arthritis without rheumatoid factor, unspecified site, Z79.899 - Other custodial (current) drug therapy Comprehensive Met. Panel 1 Month M06.00 - Rheumatoid arthritis without rheumatoid factor, unspecified site, Z79.899 - Other custodial (current) drug therapy Erythrocyte Sedimentation Rate 1 Month M06.00 - Rheumatoid arthritis without rheumatoid factor, unspecified site, Z79.899 - Other intermediate designer (current) drug therapy Complete Blood Count Auto Diff 09/10/24 M06.00 - Rheumatoid arthritis without rheumatoid factor, unspecified site, Z79.899 - Other intermediate designer (current) drug therapy Complete Blood Count Auto Diff 10/10/24 M06.00 - Rheumatoid arthritis without rheumatoid factor, unspecified site, Z79.899 - Other intermediate designer (current) drug therapy Erythrocyte Sedimentation Rate 10/10/24 M06.00 - Rheumatoid arthritis without rheumatoid factor, unspecified site, Z79.899 - Other custodial (current) drug therapy C Reactive Protein 1 Month M06.00 - Rheumatoid arthritis without rheumatoid factor, unspecified site, Z79.899 - Other intermediate designer (current) drug therapy Comprehensive Met. Panel 09/10/24 M06.00 - Rheumatoid arthritis without rheumatoid factor, unspecified site, Z79.899 - Other custodial (current) drug therapy Comprehensive Met. Panel 10/10/24 M06.00 - Rheumatoid arthritis without rheumatoid factor, unspecified site, Z79.899 - Other custodial (current) drug therapy C Reactive Protein 09/10/24 M06.00 - Rheumatoid arthritis without rheumatoid factor, unspecified site, Z79.899 - Other custodial (current) drug therapy C Reactive Protein 10/10/24 M06.00 - Rheumatoid arthritis without rheumatoid factor, unspecified site, Z79.899 - Other intermediate designer (current) drug therapy Erythrocyte Sedimentation Rate 09/10/24 M06.00 - Rheumatoid arthritis without rheumatoid factor, unspecified site, Z79.899 - Other custodial (current) drug therapy Medications: New leflunomide 10 mg PO DAILY 30 tabs 0RF Discontinued Enbrel SureClick (etanercept) Discontinued Reason: Doctor's Order 50 mg subcut QWEEK 4 mL 2RF NS Coding Level of Care Code Est Pt Level 4 (05873) Complex EM visit Add On G2211 Diagnoses Seronegative rheumatoid arthritis M06.00 Relapsing polychondritis of multiple sites M94.1 High risk medication use Z79.899 Moderate persistent asthma without complication J45.40 Asthma severity: moderate Asthma persistence: persistent Asthma complication type: uncomplicated
[2024-08-10 15:57] VITALS: BP 115/62; PULSE 93; O2SAT 97; BMI 34.8
== END 2024-08-10 16:36 | disposition home or self-care (01) ==
PROVIDERS: PCP Internal Medicine; Visit Provider Student in an Organized Health Care Education/Training Program
DX: M06.00 Rheumatoid arthritis without rheumatoid factor, unspecified site (principal); M94.1 Relapsing polychondritis; Z79.899 Other long term (current) drug therapy; J45.40 Moderate persistent asthma, uncomplicated
CPT/HCPCS: 99214

== ENCOUNTER 2024-08-17 08:30 | Outpatient (AMB) | payer BC, SELFPAY ==
--- NOTE | 2024-08-17 08:42 | A.OFFVIS_ITS ---
Vital Signs 08/17/24 08:46 Height 5 ft 2 in Weight 189 lb 9.561 oz BMI 34.7 BP 118/60 Blood Pressure Location Lt brachial Position Sitting Pulse 90 Pulse Source Pulse Oximeter Pulse Oximetry (%) 96 Oxygen Delivery Method Room Air Intake Visit Reasons: asthma [place] Machine Operator Required: No Allergies methotrexate Adverse Reaction (Intermediate, Verified 08/17/24 08:49) GI upset HPI Comments Details: The patient is a 64 year woman apparently with a history of asthma in addition to connective tissue disease. Recently she was evaluated by Rheumatology and she was diagnosed with relapsing polychondritis. Mainly affecting the college of her ears. She has been on chronic dose of the prednisone higher and lower dosage is currently a baseline of 20 mg. She was recommended start methotrexate but she was concerned about the medication. I did encourage her to start the methotrexate. She can in consider starting at a lower dose 9 increasing in titrating up as tolerated. To the dose that she was recommended for her to take. The patient does have significant shortness of breath. She has been using Symbicort. She was also sent Trelegy but she has not been able to start as of yet because of a prior approval. The Symbicort is only partially helpful. Before that she had been on Nucala for her significant asthma but became very expensive and she could not tolerate the cost anymore. Her respiratory status is significantly worsen where she cannot do even activities of daily living due to shortness of breath. In the office we did go for brief walking oximetry. Quickly her oxygen decreased down to about 95% but more importantly a heart rate increased about 125 and she was visibly dyspneic we did dyspnea score of 6/10. The patient may have other pulmonary vascular conditions that may be impacting her respiratory status. The patient did have an echocardiogram with normal cardiac function which is reassuring however. I will going to go ahead and order blood work including a D-dimer to assess for pulmonary vascular conditions. In the meantime will going to optimize respiratory therapy by adding Incruse to her Symbicort. 07/28/2023 the patient is here for a pulmonary follow-up visit. She is been complaining of worsening year discomfort feels like a throbbing the left ear more than the right. Also having some discomfort in the larynx area. This has been going on for several days. She has been on the methotrexate. Unfortunately does not seem to be controlling the significant flare-ups from the relapsing polychondritis. We did review her imaging studies. She did have a CTA which was reassuring without any evidence of any active underlying parenchymal lung disease. No evidence of any thromboembolic disease. Patient's chest pain is overall better. Her breathing is also improved. She continues on the current respiratory therapy with good effect. She also has good adherence. Today because the significant polychondritis will provide her with Solu-Medrol intramuscularly and then the patient start prednisone. She is awaiting to hear from her director graphics. 12/02/2023 the patient is here for a pulmonary follow-up visit. She is still having difficulty with breathing. She has been Symbicort and Incruse. She is still requiring her rescue inhaler almost on a daily basis. She also has been on prednisone 10 mg daily. In part for her connective tissue disease. She has also been on methotrexate. The patient states that she had been on Nucala before and that was improving her allergies and her asthma symptoms significantly. Therefore she would like to see if we can have her go back on the Nucala at this time. Based on the fact that she is on chronic prednisone that is difficult to assess her eosinophils. The last time they were measuring her absolute count was 400 even on prednisone which is suggesting that is significantly much higher than that. Will try to submit for a prior approval for the Nucala at this time. In the meantime she did follow-up with Rheumatology and she will continue to follow closely regarding her connective tissue condition. She is having some chest discomfort but I did reassure her that it is primarily due to her cartilage inflammation. She does have a small pulmonary nodule that is unlikely to be symptomatic. She will need a repeat CT scan sometime in the summer of 2023. 04/27/2024 the patient is here for a pulmonary follow-up visit. The patient has been doing very well from a respiratory status. She started the Nucala injections and they have been very affecting beneficial. She does not have any significant wheezing or chest tightness and she started the injections. She has been able to back off on some of the Symbicort in the Incruse as well. Although she still struggling with her relapsing polychondritis. She has been the methotrexate. She lost the here and she is very upset about that. The patient also had to increase her prednisone up to 20 mg because she is struggling with her arthritic 80s and discomfort. She needs to follow-up closely with Rheumatology. She would like to come off the methotrexate. Does discussion she needs to have with rheumatology at this time. No imaging studies at this time to review. The patient will continue with the Nucala injections at this time. 08/17/2024 the patient is here for a pulmonary follow-up visit. She has been struggling breathing. Having more wheezing. Moderate severity. Unfortunately she had to stop the Nucala because of the zaidi the cost was too much for her. She is also dealing closely Rheumatology and she is taking other biologic therapies for that and that causes her to have it more issues with her financial constraints. She is using her nebulizer. She is also using inhalers. She is also on 15 mg of prednisone. She feels like her polychondritis is acting up and also has wheezing and stridor on examination. Will go ahead and start her on budesonide with the hope that the budesonide can directly if help her with the upper airway involvement of the polychondritis and also help her with her asthma. She is going to be off the Nucala because of the cost. Will continue to optimize respiratory therapy. If she is no better she is going to come in for chest x-ray. She had a CT scan back in 04/22/2024 which I personally reviewed demonstrating mosaic pattern air trapping consistent with the asthma. She also has some thickening of the airways consistent with her polychondritis. 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 Review of Systems Const Reports weight gain Eyes Reports no additional complaints ENT Reports change in voice, Reports hoarseness, Reports nose pain and Reports other (ear pain and swelling) Card Reports chest pain, Denies dyspnea and Reports dyspnea on exertion Resp Reports cough, Reports pain on inspiration, Reports pain with cough, Denies dyspnea, Reports dyspnea on exertion and Reports wheezing Musc Reports arthralgias and Reports numbness Neuro Reports numbness Psych Reports abnormal sleep pattern Aller/Immun Reports wheezing Physical Exam Vital Signs: Last Vital Signs Pulse 90 08/17/24 08:46 BP 118/60 08/17/24 08:46 Pulse Ox 96 08/17/24 08:46 Oxygen Delivery Method Room Air 08/17/24 08:46 BMI result Body Mass Index 34.7 Const General: comfortable HEENT Head: Yes normocephalic Ears: external ear abnormal other (pain and swelling) Eyes General: appearance normal, both eyes and all related structures Neck Neck: Yes supple Chest Chest palpation & inspection: normal inspection of the chest Resp Effort & Inspection: normal respiratory effort and stridor Auscultation: clear to auscultation bilaterally, no rales and wheezes Cardio Rate: tachycardic Rhythm: regular rhythm Heart sounds: S1 normal heart sound present and S2 normal heart sound present GI Palpation (GI): Soft to palpation Skin General skin exam: no rashes or lesions noted Extrem General: No clubbing and No cyanosis Assessment & Plan Assessment & Plan (1) Relapsing polychondritis of multiple sites: Comment: dx 12/26 bilateral ear chondritis, costochondritis & seroneg RA Code(s): M94.1 - Relapsing polychondritis Category: Medical (2) Asthma: Code(s): J45.909 - Unspecified asthma, uncomplicated Category: Medical Qualifiers: Asthma complication type: with acute exacerbation Asthma persistence: persistent Asthma severity: moderate Qualified Code(s): J45.41 - Moderate persistent asthma with (acute) exacerbation (3) Pulmonary nodule: Code(s): R91.1 - Solitary pulmonary nodule Category: Medical Plan continue symbicort continue Incruse start BUdesonide nebs BID *rinse* Prednisone taper->15 stopped Nucala due to cost F/U 6 months Orders: Orders XR chest 2V Today J45.40 - Moderate persistent asthma, uncomplicated Medications: New budesonide 0.5 mg (2 mL) inhalation BID 120 mL 11RF 30 days J44.9 - Chronic obstructive pulmonary disease, unspecified prednisone PO daily; Take 6 tabs daily x 3 days, then 5 tabs x 3 days, then 4 tabs x 3 days, then 3 tabs x 3 days, then 2 tabs daily x 3 days, then 1 tab x 3 days to complete. 63 tabs 0RF 18 days Changed From montelukast (Singulair) 10 mg PO DAILY To montelukast (Singulair) 10 mg PO DAILY 90 tabs 3RF 90 days Coding Level of Care Code Est Pt Level 4 (85790) Complex EM visit Add On G2211 Diagnoses Relapsing polychondritis of multiple sites M94.1 Moderate persistent asthma with acute exacerbation J45.41 Asthma complication type: with acute exacerbation Asthma persistence: persistent Asthma severity: moderate Pulmonary nodule R91.1 Time Spent (min) 16
[2024-08-17 08:46] VITALS: BP 118/60; PULSE 90; O2SAT 96; BMI 34.7
== END 2024-08-17 09:06 | disposition home or self-care (01) ==
PROVIDERS: PCP Internal Medicine; Visit Provider Hospitalist
DX: M94.1 Relapsing polychondritis (principal); J45.41 Moderate persistent asthma with (acute) exacerbation; R91.1 Solitary pulmonary nodule
CPT/HCPCS: 99214

== ENCOUNTER → 2024-08-17 08:30 | Outpatient (BNVA) | payer BC, SELFPAY | PROVIDERS: PCP Internal Medicine; Visit Provider Hospitalist ==

== ENCOUNTER 2024-09-29 09:54 | Outpatient (REF) | payer BC, SELFPAY ==
[2024-09-29 10:59] LABS: Basophils Absolute Auto 0.1 X10*3/uL (0.0-0.2); Basophils Percent Auto 0.5 % (0-2); Eosinophils Absolute Auto 0.1 X10*3/uL (0.0-0.4); Eosinophils Percent Auto 1.4 % (0-4); Hematocrit 38.7 % (37.0-47.0); Hemoglobin 12.7 g/dl (12.0-16.0); Imm Gran Abs Auto 0.04 X10*3/uL (0.00-0.03); Imm Gran Pct Auto 0.4 % (0.0-0.4); Lymphocytes Absolute Auto 0.6 X10*3/uL (1.2-4.9); Lymphocytes Percent Auto 6.6 % (20-40); MANUAL DIFF FLAG NO; Mean Corpuscular HGB Conc 32.8 g/dl (31.0-35.0); Mean Corpuscular Hemoglobin 29.7 pg (27.0-33.0); Mean Corpuscular Volume 90.6 fL (80.0-98.0); Monocytes Absolute Auto 0.4 X10*3/uL (0.1-1.2); Monocytes Percent Auto 3.7 % (2-11); Neutrophils Absolute Auto 8.4 x10*3/uL (2.0-8.3); Neutrophils Percent Auto 87.4 % (45-73); Platelet Count 213 X10*3/uL (160-400); Red Blood Count 4.27 X10*6/uL (4.20-5.50); Red Cell Distribution Width 13.5 % (11.0-16.0); White Blood Count 9.6 X10*3/uL (4.8-10.8)
[2024-09-29 11:35] LABS: Erythrocyte Sedimentation Rate 11 MM/HR (0-20)
[2024-09-29 11:39] LABS: Alanine Aminotransferase 24 U/L (0-31); Albumin Level 3.9 g/dL (3.5-5.0); Alkaline Phosphatase 70 U/L (39-117); Anion Gap 14 (12-20); Aspartate Amino Transferase 25 U/L (5-31); Bilirubin Total 0.3 mg/dL (0.0-1.0); Blood Urea Nitrogen 17 mg/dL (9-16); C Reactive Protein 0.96 mg/dL (< or = 0.50); Calcium 9.3 mg/dL (8.4-10.2); Carbon Dioxide 25 mmol/L (22-29); Chloride 109 mmol/L (96-108); Estimated Glomerular Filt Rate > 60; Glucose Random 92 mg/dL (60-115); Potassium 3.9 mmol/L (3.3-5.1); Sodium 144 mmol/L (135-145); Total Protein 6.9 g/dL (6.5-8.0)
== END 2024-09-29 09:55 | disposition home or self-care (01) ==
LOC: HO.LAB 09:54
PROVIDERS: PCP Internal Medicine; Visit Provider Student in an Organized Health Care Education/Training Program
DX: M06.00 Rheumatoid arthritis without rheumatoid factor, unspecified site (principal); M94.1 Relapsing polychondritis; Z79.899 Other long term (current) drug therapy
CPT/HCPCS: 36415; 80053; 85025; 85652; 86140

== ENCOUNTER 2024-10-12 15:11 | Outpatient (AMB) | payer BC, SELFPAY ==
--- NOTE | 2024-10-12 15:25 | MHC.OFFVIS ---
Vital Signs 10/12/24 15:34 Height 5 ft 2 in Weight 175 lb 0.752 oz BMI 32.0 BP 120/68 Blood Pressure Location Lt brachial Position Sitting Pulse 87 Pulse Source Pulse Oximeter Pulse Oximetry (%) 98 Oxygen Delivery Method Room Air Intake Visit Reasons: RA/CM Intake Note: Patient presents for RA. Allergies methotrexate Adverse Reaction (Intermediate, Verified 10/12/24 15:31) GI upset Medication List - Last Reconciled 10/12/24 by Sienna Alan MD acetaminophen (Tylenol) 650 mg PO Q4H PRN albuterol sulfate 90 mcg/actuation (ProAir HFA) 2 puffs inhalation Q6H PRN albuterol sulfate 2.5 mg inhalation Q4-6H PRN budesonide 0.5 mg (2 mL) inhalation BID 30 days [id number]-hbhjgmug-ufotlydonh 160-9-4.8 mcg/actuation (Breztri Aerosphere) 2 inhalations inhalation BID cyclobenzaprine 10 mg PO TID PRN diclofenac sodium 1% (Arthritis Pain (diclofenac)) 2 grams topical QID epinephrine (EpiPen) 0.3 mg IM Q4H PRN famotidine 20 mg PO DAILY 30 days fluconazole 100 mg PO DAILY 14 days fluticasone propionate 50 mcg/actuation 1 spray intranasal BID leflunomide 20 mg PO DAILY lidocaine HCl 2% (Lidocaine Viscous) 1 appl mucous membrane TID PRN montelukast (Singulair) 10 mg PO DAILY 90 days nebulizers As directed prednisone PO daily; Take 6 tabs daily x 3 days, then 5 tabs x 3 days, then 4 tabs x 3 days, then 3 tabs x 3 days, then 2 tabs daily x 3 days, then 1 tab x 3 days to complete. 18 days tirzepatide 7.5 mg subcut QWEEK zolpidem 5 mg PO BEDTIME NS HPI Comments Details: 64-year-old female with relapsing polychondritis returns for follow-up. She has been taking leflunomide for the last 2 months, her leflunomide prescription lapsed as she has not done her safety blood work. She is now back on leflunomide 20 mg daily. She is on prednisone 10 mg daily. She has lost about 40 lb over the last 6 months. She has been on there is appetite injections that she gets from a clinic. She states that her pains are much improved overall. No swelling or pain of her ears or her nose. No wheezing or shortness of breath. 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 Female Reproductive History Menstrual Total pregnancies: 4 Number of Living Children: 3 Review of Systems Const Reports weight loss (Intentional) Eyes Reports no additional complaints Card Denies dyspnea Resp Denies cough, Denies dyspnea and Denies wheezing Musc Denies arthralgias, Denies joint swelling and Denies stiffness Aller/Immun Denies wheezing Physical Exam Vital Signs: Last Vital Signs Pulse 87 10/12/24 15:34 BP 120/68 10/12/24 15:34 Pulse Ox 98 10/12/24 15:34 Oxygen Delivery Method Room Air 10/12/24 15:34 BMI result Body Mass Index 32.0 Const General: cooperative and healthy appearing Nutritional Appearance: obese Orientation/consciousness: patient oriented x3 Limitations: no limitations HEENT Other: No erythema, tenderness or swelling of ears or nasal bridge Chest Other: No chest wall tenderness today Resp Effort & Inspection: normal respiratory effort and able to speak in complete sentences Auscultation: no wheezes Cardio Rate: regular rate Rhythm: regular rhythm Skin General skin exam: no rashes or lesions noted Neuro General: patient oriented x3 Extrem Other: Swollen or tender joints today Assessment & Plan Assessment & Plan (1) Seronegative rheumatoid arthritis: Comment: -ve RF -ve CCP dx 12/2022 MTX started 04/2023 DC 05/2024 ineffective and caused hair loss and significant GI upset Leflunomide started 08/2024 effective Code(s): M06.00 - Rheumatoid arthritis without rheumatoid factor, unspecified site Category: Medical Plan: 64-year-old female with relapsing polychondritis complicated by bilateral ear chondritis and seronegative rheumatoid arthritis returns for follow-up. She has been on leflunomide for the last 2 months with improvement. There is no active synovitis on exam today. She is also on prednisone 10 mg daily Reduce prednisone to 7.5 mg daily for 1 month then lowered to 5 mg daily Continue leflunomide 20 mg daily Labs before next visit in 3 months (2) Relapsing polychondritis of multiple sites: Comment: dx 12/26 bilateral ear chondritis, costochondritis & seroneg RA Code(s): M94.1 - Relapsing polychondritis Category: Medical Plan: On leflunomide (3) High risk medication use: Code(s): Z79.899 - Other detention (current) drug therapy Category: Medical Plan: Monitor safety labs for leflunomide (4) Asthma: Code(s): J45.909 - Unspecified asthma, uncomplicated Category: Medical Qualifiers: Asthma severity: moderate Asthma persistence: persistent Asthma complication type: with acute exacerbation Qualified Code(s): J45.41 - Moderate persistent asthma with (acute) exacerbation Plan: Her asthma is much better controlled at this time, she is on multiple inhalers. She is on prednisone 10 mg daily, reduce prednisone to 7.5 mg daily Historically patient needed Nucala Discussed with patient that she should attempt to find a better insurance to cover biologic meds if needed for her asthma and rheumatoid arthritis Plan I spent 26 minutes reviewing patient's chart, evaluating patient, ordering diagnostic workup, counseling patient and documenting in the chart Orders: Orders Comprehensive Met. Panel 3 Months M06.00 - Rheumatoid arthritis without rheumatoid factor, unspecified site, Z79.899 - Other board of education secretary (current) drug therapy Complete Blood Count Auto Diff 3 Months M06.00 - Rheumatoid arthritis without rheumatoid factor, unspecified site, Z79.899 - Other board of education secretary (current) drug therapy C Reactive Protein 3 Months M06.00 - Rheumatoid arthritis without rheumatoid factor, unspecified site, Z79.899 - Other detention (current) drug therapy Erythrocyte Sedimentation Rate 3 Months M06.00 - Rheumatoid arthritis without rheumatoid factor, unspecified site, Z79.899 - Other board of education secretary (current) drug therapy Medications: Changed From prednisone PO daily; Take 6 tabs daily x 3 days, then 5 tabs x 3 days, then 4 tabs x 3 days, then 3 tabs x 3 days, then 2 tabs daily x 3 days, then 1 tab x 3 days to complete. 18 days 63 tabs 0RF To prednisone 7.5 mg (3 x 2.5 mg) PO DAILY 90 tabs 1RF Coding Level of Care Code Est Pt Level 4 (89504) Complex EM visit Add On G2211 Diagnoses Seronegative rheumatoid arthritis M06.00 Relapsing polychondritis of multiple sites M94.1 High risk medication use Z79.899 Moderate persistent asthma with acute exacerbation J45.41 Asthma severity: moderate Asthma persistence: persistent Asthma complication type: with acute exacerbation
[2024-10-12 15:34] VITALS: BP 120/68; PULSE 87; O2SAT 98; BMI 32.0
--- OUTSIDE RECORDS SUMMARY | 2024-10-13 22:20 | XMS_ITS | Data Portability ---
Author Organization [place] [facility] [place] Address [address] [place] [address] Care Team Providers Care Supervisor Opening And Picking Name Role Phone MARY JANE BENITES Primary Care Provider [phone] Assessment Encounter Date Assessment Date Assessment LastModified by Organization Details LastModified Time 03/05/2023 03/05/2023 This is a very pleasant 62-year-old female with bilateral knee arthralgia secondary to severe medial compartment arthritis. Clinical exam she actually has very good range of motion. We did discuss treatment options for which she opted for bilateral cortisone injections of the knees at today's visit. After verbal consent was granted by the patient. The procedure was carried out independently and bilaterally. She tolerated the procedures well without any immediate side effects. Aftercare instructions were discussed in detail. I would like to see her back in 3 months time for repeat clinical exam. Should her symptoms not improve or worsen she should contact my office. She is attempting to stave off knee replacement surgery as long as feasibly possible. Indirect care and treatment in conjunction with Dr. Baez Additional treatment plan discussed with the patient in detail included the following; - Provider focused nonsteroidal anti-inflammator y regimen (discussed were the pros, cons, benefits and risks as well as any black box warnings) in patients over 60 years old they should be very cautious in taking these medications due to potential decreased kidney function and or elevated blood pressure. - Analgesic pain medication for pain suppression (discussed were the pros, cons, benefits and risks as well as any black box warnings) - The use of topical pain relieving medication were discussed - The use of ice to decrease inflammation and pain - The use of assistive ambulatory devices for ambulation and fall prevention - Formal specific guided physical therapy program I reviewed my findings at length with the patient today. ??We discussed the nature and etiology of this problem along with current treatment options. We discussed the expected course and outcomes and what to expect. We also discussed risks and benefits. ?? All of their questions were answered today, and there was exhibited understanding and comprehension of all that was discussed. 10 minutes were spent reviewing previous imaging and charting. ??10 minutes were spent obtaining patient history. ??5 minutes were spent on physical exam. ??5??minutes were spent explaining diagnosis and assessment. Today's documentation was made using voice recognition software. This note may contain grammatical errors secondary to the software. [email or web address] Not available 03/06/2023 16:12:02 Plan of Treatment Reminders Order Date Submit Date Provider Last Modified By Organization Details Last Modified Time Details Appointments None recorded. Lab None recorded. Referral None recorded. Procedures None recorded. Surgeries None recorded. Imaging XR, knee, 1 or 2 view - Left Knee Pain [address] [place] [address] [facility], [address], [place], [address], 3 09:31:12 XR, knee, 1 or 2 view - Right Knee Pain [address] [place] [address] [facility], [address], [place], [address], 3 09:31:12 XR, knee, weightbeari ng - Bilateral Knee Pain [address]22 [address] [place] [address] [facility], [address], [place], [address], 3 09:31:12 Medication Orders Kenalog 40 mg/mL suspension for injection [address] [place] [address] [id number], [phone] [place], [address], 3 16:15:52 lidocaine (PF) 10 mg/mL (1 %) injection solution [address] [place] [address] [id number], [phone] [place], [address], 16:15:52 Kenalog 40 mg/mL suspension for injection 2022 023 [email or web address] Not available 12:38:24 lidocaine (PF) 10 mg/mL (1 %) injection solution 2022 023 [email or web address] Not available 12:38:24 Patient TargetsNo targets recorded. Patient Instructions Encounter Date Encounter Id Patient Instructions Last Modified By Organization Details Last Modified Time 03/05/2023 [id number] You have been provided with a cortisone injection in order to reduce the pain and inflammation that you are experiencing. The injection consists of two medications. Cortisone (an anti-inflammatory that will take 48-72 hours to take effect) and Lidocaine (a numbing agent that will last 2-3 hours). Please note that not everyone will have a lasting response following the injection. PATIENT INSTRUCTIONS Once the Lidocaine wears off, you may have an increase in your pain. I recommend icing the affected area for 20 minutes 3-4 times per day. It is recommended that you refrain from any high level activities using the joint or limb that was injected for approximately 24-48 hours. Normal day-to-day activities are generally not a problem. POSSIBLE SIDE EFFECTS Individuals with dark complexions may experience some skin discoloration locally at the site of the injection. There is the possibility of an increase in discomfort within 48 hours following the injection. This is called a ? flare? . To help minimize the chances of this, please see the post-injection instructions above. There is a less than 1% chance of an infection. If you notice any signs of infection (redness, warmth, drainage, fever greater than 100 degrees) please call our office or contact us through the portal [facility]. Not available 03/06/2023 16:15:06 X-rays of the right knee reveals severe medial compartment degenerative change most notably on Rader and AP view, severe grade 3 patellofemoral joint space narrowing, osteophyte formation and subchondral sclerosis without acute bony abnormality. Left knee reveals severe medial compartment degenerative change most notably on Rader and AP view, severe grade 4 patellofemoral joint space narrowing, osteophyte formation and subchondral sclerosis without acute bony abnormality. Not available 03/06/2023 16:13:32 Reason for Referral None Reported. Problems Name Problem SNOMED Code Status Onset Date Resolution Date Notes Provider Name and Address Organization Details Recorded Time Pain of bilateral knee joints 5638549183529 04 Active 2022 JEANNA MCDONOUGH PA-C [address], [place], [address], [place] [facility] 3 08:20:44 Osteoarthri tis of right knee joint 0363943221430 00 Active 2022 JEANNA MCDONOUGH PA-C [address], [place], [address], [place] [facility] 3 16:12:10 Osteoarthri tis of left knee joint 0421165417992 09 Active 2022 JEANNA MCDONOUGH PA-C [address], [place], [address], [place] [facility] 3 16:12:15 Problem Notes None recorded. Procedures Surgical History Date Name Laterality Status Provider Name and Address Organization Details Recorded Time 05/28/2023 Knee Joint/Burs a Asp & Inj cancelled JEANNA MCDONOUGH PA-C [address], [place], [address], [place] [facility] 05/28/2023 08:21:07 03/05/2023 Knee Joint/Burs a Asp & Inj completed JEANNA MCDONOUGH PA-C [address], [place], [address], [place] [facility] 03/06/2023 16:14:28 Imaging Results None recorded. Procedure Notes None recorded. Medical Equipment None Reported. Allergies No known drug allergies Medications Name Sig Start Date Stop Date Status Note LastModified by Organization Details LastModified Time cyclobenzapr ine 10 mg tablet TAKE 1 TABLET BY MOUTH 3 TIMES A DAY NEEDED FOR MUSCLE PAIN OR SPASM active Not Available Not Available No t Available prednisone 10 mg tablet TAKE 1 TABLET BY MOUTH EVERY DAY active Not Available Not Available No t Available ipratropium 0.5 mg-albuterol 3 mg (2.5 mg base)/3 mL nebulization soln PLEASE SEE ATTACHED FOR DETAILED DIRECTIONS active Not Available Not Available N ot Available alprazolam 1 mg tablet PLEASE SEE ATTACHED FOR DETAILED DIRECTIONS active Not Available Not Available N ot Available prednisone 20 mg tablet TAKE 3 TABLETS BY MOUTH EVERY DAY active Not Available Not Available No t Available phentermine 15 mg capsule TAKE 1 CAPSULE BY MOUTH EVERY DAY FOR 28 DAYS active Not Available Not Available No t Available tramadol 50 mg tablet TAKE 1 TABLET BY MOUTH 2 TIMES A DAY NEEDED FOR PAIN active Not Available Not Available No t Available Kenalog 40 mg/mL suspension for injection Take 2 mL by injection route. 2022 active Not Available Not Available Not Avai lable amoxicillin 875 mg tablet TAKE 1 TABLET BY MOUTH EVERY 12 HOURS UNTIL FINISHED active Not Available Not Available No t Available famotidine 20 mg tablet TAKE 1 TABLET BY MOUTH EVERY DAY active Not Available Not Available No t Available methotrexate sodium 2.5 mg tablet TAKE 6 TABLETS BY MOUTH ONCE WEEKLY FOR 2 WEEKS THEN 8 TABLETS ONCE WEEKLY active Not Available Not Available Not Available hydrocodone 7.5 mg-acetamino phen 325 mg tablet TAKE 1 TABLET BY MOUTH EVERY 6 HOURS NEEDED active Not Available Not Available No t Available dexamethason e 4 mg tablet TAKE 3 TABS BY MOUTH MORNING OF DENTAL VISIT active Not Available Not Available No t Available folic acid 1 mg tablet TAKE 1 TABLET BY MOUTH EVERY DAY active Not Available Not Available No t Available montelukast 10 mg tablet TAKE 1 TABLET BY MOUTH AT BEDTIME FOR 360 DAYS. active Not Available Not Available No t Available azithromycin 500 mg tablet TAKE 1 TABLET BY MOUTH IN THE MORNING OF DENTAL VISIT active Not Available Not Available No t Available lidocaine (PF) 10 mg/mL (1 %) injection solution Take 2 mL by injection route. 2022 active Not Available Not Available Not Avai lable Nucala 100 mg/mL subcutaneous auto-injecto r active Not Available Not Available Not Available Breztri Aerosphere 160 mcg-9mcg-4.8 mcg/actuatio n HFA aerosol inhaler INHALE 2 PUFFS INTO THE LUNGS TWICE A DAY active Not Available Not Available Not Available Vitals Date Recorded Body weight Body mass index (BMI) Body height Provider Name and Address Organization Details Last Updated DateTime 03/05/2023 944371.28 g 41.2 kg/m2 157.[address] [place] [facility] 03/05/2023 15:02:52 Social History Question Answer Notes LastModified by Organizat ion Details LastModified Time Tobacco Smoking Status Unknown If Ever Smoked Massiel Deleon null, [place] [facility] 03/05/2023 14:57:51 What Is Your Level Of Alcohol Consumption? None Information not available 03/05/2023 Do You Use Any Illicit Or Recreational Drugs? No Information not available 03/05/2023 Sex: Unknown Functional Status None recorded. Mental Status None recorded. Family History Relationship Description Onset Age of this Age Resolved Age Notes LastModified by Organization Details LastModified Time Father Arthritis Not availabl e 03/05/2023 14:58:03 Mother Arthritis Not availabl e 03/05/2023 14:58:03 Mother Hyperlipidem ia Not available 2022 14:58:17 Sister Hypertensive disorder Not available 2022 14:58:27 Medical History Condition Response Asthma Y Gynecological HistoryNo gynecological history recorded. Obstetrics History GPAL:G 0 P 0 0 0 0 Past Encounters Encounter ID Performer Location Encounter Start Date Encounter Closed Date Diagnosis/Indication Diagnosis SNOMED-CT Code Diagnosis ICD10 Code [id number] Vincent Baez MD [place] [address] [address] 03/05/2023 14:39:35 03/05/2023 15:34:21 Pain of bilateral knee joints 3592802349 53394 M25.561 M25.562 Osteoarthr itis of right knee joint 3610233360 59176 M17.11 Osteoarthr itis of left knee joint 2210112074 40326 M17.12 Health Concerns Section Related Observation LastModified by Organization Detai ls LastModified Time None Recorded Concern Status LastModified by Organization Details LastModified Time None Recorded Advance Directives Directive None Recorded Payers Encounter Date Sequence Insurance Name Policy Number Policy Brice Covered Member ID Brice Member ID Guarantor Name 03/05/2023 1 [place]) [id number] Ryne Grant [id number] Ryne Grant Notes Date Note Type Note Provider Name and Address Organization Details Recorded Time 03/05/2023 text/html This is a very pleasant 62-year-old female who comes in with bilateral knee pain its been getting progressively worse over a number of years. 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 She states that she has not seen anybody formally for her knees. She takes csqg-nka-vkiaffd pain medication which gives her some relief. She describes her pain is medial nature that is worse with weightbearing, bending and certain movements. She denies any history of rheumatoid arthritis, gout, Lyme disease. She also denies any history of knee joint infections. JEANNA MCDONOUGH PA-C [address] [place] [address], [place], [address], [place] [facility] 03/06/2023 16:15:55 OBGyn Episode No OBEpisode recorded.
== END 2024-10-12 15:56 | disposition home or self-care (01) ==
PROVIDERS: PCP Internal Medicine; Visit Provider Student in an Organized Health Care Education/Training Program
DX: M06.00 Rheumatoid arthritis without rheumatoid factor, unspecified site (principal); M94.1 Relapsing polychondritis; Z79.899 Other long term (current) drug therapy; J45.41 Moderate persistent asthma with (acute) exacerbation
CPT/HCPCS: 99214

== ENCOUNTER 2024-11-23 15:16 | Outpatient (REF) | payer BC, SELFPAY ==
--- NOTE | ~2024-11-23 | XR_ITS ---
CLINICAL HISTORY: R07.81 - Pleurodynia 2 view chest x-ray Comparison: CR/VT/SR - XR CHEST 2V - 12/13/22 22:35 EST Findings: The lungs are clear. Heart size is normal. No acute fracture. IMPRESSION: 1. No acute findings. This document has been electronically signed by: Natalee Reveles MD on 11/23/2024 16:29:31
--- OUTSIDE RECORDS SUMMARY | 2024-11-23 17:39 | XMS_ITS | Clinical Summary ---
Author Organization [facility] Address [address] [place] [address] Phone Care Team Providers Care Internal Investigator Name Role Phone Bertrand Christianson MD Primary Care Provider [phone] Allergies No known active allergies Medications Medication Sig Dispensed Refills Start Date End Date Status albuterol HFA (ProAir HFA) 90 mcg/actuation inhaler Inhale 2 puffs by mouth. 12/26/2021 Active cetirizine (ZyrTEC) 10 mg tablet Take 1 tablet (10 mg total) by mouth. 07/23/2023 Active cyclobenzaprine (FLEXERIL) 10 mg tablet Take 1 tablet (10 mg total) by mouth 3 (three) times a day if needed for muscle spasms. Active diclofenac (VOLTAREN) 1 % topical gel Apply 2 g topically. 07/05/2021 Active EPINEPHrine (EpiPen 2-Daniel) 0.3 mg/0.3 mL injection Inject 0.3 mL (0.3 mg total) as directed. 07/23/2023 Active folic acid (FOLVITE) 1 mg tablet Take 1 tablet (1,000 mcg total) by mouth 1 (one) time each day. Active ipratropium-albuteroL (DUONEB) 0.5-2.5 mg/3 mL nebulizer solution Inhale 3 mL by mouth. 12/26/2021 Active meloxicam submicronized 10 mg capsule 1 capsule 1 (one) time each day at the same time. Active montelukast (Singulair) 10 mg tablet 1 tablet (10 mg total) 1 (one) time each day at the same time. Active omeprazole (PriLOSEC) [address] capsule Take 1 capsule (20 mg total) by mouth 1 (one) time each day. 04/04/2021 Active ondansetron ODT (ZOFRAN-ODT) 4 mg disintegrating tablet DISSOLVE 1 TABLET ON TONGUE 3 TIMES DAILY NEEDED FOR 10 DAYS 08/11/2024 Active zolpidem (AMBIEN) 5 mg tablet TAKE 1 TABLET BY MOUTH BEDTIME MAY REPEAT ONCE IF NO RESPONSE IN 30-60 MINUTES 10/23/2023 Active predniSONE (DELTASONE) 20 mg tablet Take 1 tablet (20 mg total) by mouth 1 (one) time each day. 15 tablet 09/29/2024 Active leflunomide (ARAVA) 10 mg tablet Take 1 tablet (10 mg total) by mouth 1 (one) time each day. 20 tablet 09/29/2024 Active Encounters Date Type Department Care Team Description 11/08/2024 Telephone Internal Medicine [address] [phone] Bertrand Christianson MD Joseph: Referral 11/05/2024 Telephone Internal Medicine [address] [phone] Venus Lyons [place] Appointment 09/29/2024 8:15 AM EST Office Visit Internal [address] [phone] Bertrand Christianson MD Mild intermittent asthma, unspecified whether complicated (Primary Dx); Relapsing polychondritis; Encounter for screening mammogram for breast cancer; Preventative health care from Last 3 Months Surgical History Surgery Date Site/Laterality Comments OTHER SURGICAL HISTORY PROCEDURE: UT LIG/TRNSXJ FLP TUBE ABDL/VAG APPR UNI/BI TONSILLECTOMY ADENOIDECTOMY, BILATERAL MYRINGOTOMY AND TUBES PROCEDURE: UT TONSILLECTOMY & ADENOIDECTOMY <AGE 12 Medical History Medical History Date Comments Anxiety state, unspecified 11/19/2006 DX:An xiety state, unspecified Allergic conjunctivitis of both eyes 12/03/2017 DX:Allergic conjunctivitis of both eyes; COMMENT: Cat and dog Asthma 06/04/2007 DX:Asthma Chronic back pain 10/31/2006 DX:Chronic jolene k pain; COMMENT: IMO update Depressive disorder 11/19/2006 DX:Depressiv e disorder; COMMENT: seeing kelsey moeller [address] [facility] ph [phone] Heart palpitations 12/03/2017 DX:Heart palp itations; COMMENT: Due to albuterol GERD (gastroesophageal reflu x disease) DX:GERD (gastroesophageal re flux disease) Constipation DX:Constipation Family History Medical History Relation Name Comments Breast cancer Aunt maternal Hypertension Father of asthma Stroke Maternal Grandmother Coronary artery disease Mother RA Hypertension Paternal Grandfather Diabetes Paternal Grandmother Hypertension Paternal Grandmother Relation Name Status Comments Aunt Father Maternal Grandmother Mother Paternal Grandfather Paternal Grandmother Social History Tobacco Use Types Packs/Day Years Used Date Smoking Tobacco: Former Cigarettes 1 25 0 11/03/1979 - 11/03/2004 Smokeless Tobacco: Never Alcohol Use Standard Drinks/Week Comments No 0 (1 standard drink = 0.6 oz pur e alcohol) Sex and Gender Information Value Date Recorded Sex Assigned at Not on file Gender Identity Not on file Sexual Orientation Not on file Job Start Date Occupation Industry Not on file Not on file Not on file Obstetrics History Last Filed Vital Signs Vital Sign Reading Time Taken Comments Blood Pressure 90/60 09/29/2024 8:30 AM EST Pulse 94 09/29/2024 8:30 AM EST Temperature - - Respiratory Rate - - Oxygen Saturation 98% 09/29/2024 8:30 AM EST Inhaled Oxygen Concentration - - Weight 78.9 kg (174 lb) 09/29/2024 8:30 AM EST Height 157.5 cm (5' 2 ) 07/23/2023 9:07 AM EDT Body Mass Index 31.83 07/23/2023 9:07 AM EDT Plan of Treatment Health Maintenance Due Date Last Done Comments Breast Cancer Screening 1960 Pneumococcal Vaccine: Pediatrics (0 to 5 Years) and At-Risk Patients (6 to 64 Years) (1 of 2 - PCV) 1966 DTaP,Tdap,and Td Vaccines (1 - Tdap) 1979 Cervical Cancer Screening: P ap Smear 1981 Zoster Vaccines (1 of 2) 2010 RSV Immunization Patients 60 + Years Old (1 - Risk 60-74 years 1-dose series) 2020 COVID-19 Vaccine (3 - Modern a risk series) 03/18/2022 02/18/2022, 01/21/2022 Cholesterol Screening (Lipid Panel) 10/02/2022 Colorectal Cancer Screening: Colonoscopy 10/02/2022 Depression Screening 10/02/2022 HIV Screening 10/02/2022 Hepatitis C Screening 10/02/2022 Social Influencers of Health Screening 10/02/2022 Influenza Vaccine (#1) 2024 HIB Vaccines Aged Out No longer eligi ble based on patient's age to complete this topic HPV Vaccines Aged Out No longer eligi ble based on patient's age to complete this topic Hepatitis A Vaccines Aged Out No long er eligible based on patient's age to complete this topic Hepatitis B Vaccines Aged Out No long er eligible based on patient's age to complete this topic IPV Vaccines Aged Out No longer eligi ble based on patient's age to complete this topic MMR Vaccines Aged Out No longer eligi ble based on patient's age to complete this topic Meningococcal ACWY Vaccine Aged Out N o longer eligible based on patient's age to complete this topic RSV Immunization Patients Under 20 months Aged Out No longer eligible b ased on patient's age to complete this topic Varicella Vaccines Aged Out No longer eligible based on patient's age to complete this topic Procedures Procedure Name Priority Date/Time Associated Diagnosis Comments EXTERNAL CLINICAL LAB 09/29/2024 from Last 3 Months Results * External clinical lab (09/29/2024) Provider [facility] BLOOD ORDERA BLES from Last 3 Months Care Teams Internal Investigator Relationship Specialty Start Date End Date Bertrand Christianson MD PCP - General Internal Medicine 07/06/19
--- OUTSIDE RECORDS SUMMARY | 2024-11-23 17:39 | XMS_ITS | Data Portability ---
Author Organization [facility] [place] Address [address] [place] [address] Care Team Providers Care Combat Systems Operator Mine Warfare Name Role Phone MARY JANE BENITES Primary Care Provider Assessment Encounter Date Assessment Date Assessment LastModified [...] view - Left Knee Pain 20[address] [place] [id number] [facility], [address], [place], [address], 3 09:31:12 XR, knee, 1 or 2 view - Right Knee Pain 2022 [address] [place] [address] [facility], [address], [place], [address], 3 09:31:12 XR, knee, weightbeari ng - Bilateral Knee Pain 2022 [address] [place] [address] [facility], [address], [place], [address], 3 09:31:12 Medication Orders Kenalog 40 mg/mL suspension for injection 2022 [address] [place] [address] [id number], [phone] [place], [address], 3 16:15:52 lidocaine (PF) 10 mg/mL (1 %) injection solution 2022 [address]23 [place] [address] [id number], [phone] [place], [address], 16:15:52 Kenalog 40 mg/mL suspension for injection 2022 023 [email or web address] Not available 12:38:24 lidocaine (PF) 10 mg/mL (1 %) injection solution 2022 023 [email or web address] Not available 12:38:24 Patient TargetsNo targets recorded. Patient Instructions Encounter Date Encounter Id Patient Instructions Last Modified By Organization Details Last Modified Time 03/05/2023 [id number] You have been provided with a cortisone [...] office or contact us through the portal [facility]. Not available 03/06/2023 16:15:06 X-rays of the [...] Recorded Time Pain of bilateral knee joints 5141875279382 04 Active 2022 JEANNA MCDONOUGH PA-C [address], [place], [address], [place] [facility], P 3 08:20:44 Osteoarthri tis of right knee joint 5462735133516 00 Active 2022 JEANNA MCDONOUGH PA-C [address], [place], [address], [place] [facility], P 3 16:12:10 Osteoarthri tis of left knee joint 2489849900811 09 Active 2022 JEANNA MCDONOUGH PA-C [address], [place], [address], [place] [facility], [facility] 3 16:12:15 Problem Notes None recorded. Procedures Surgical History Date Name Laterality Status Provider Name and Address Organization Details Recorded Time 05/28/2023 Knee Joint/Burs a Asp & Inj cancelled JEANNA MCDONOUGH PA-C [address], [place], [address], [place] [facility] 05/28/2023 08:21:07 03/05/2023 Knee Joint/Burs a Asp & Inj completed JEANNA MCDONOUGH PA-C [address], [place], [address], [place] [facility] 03/06/2023 16:14:28 Imaging Results None recorded. [...] Address Organization Details Last Updated DateTime 03/05/2023 623521.28 g 41.2 kg/m2 157.[address] [place] [facility] 03/05/2023 15:02:52 Social History Question Answer Notes LastModified by Organizat ion Details LastModified Time Tobacco Smoking Status Unknown If Ever Smoked Massiel Deleon null, [place] [facility] 03/05/2023 14:57:51 What Is Your Level [...] Diagnosis/Indication Diagnosis SNOMED-CT Code Diagnosis ICD10 Code Diagnosis Note 8304 Vincent Baez MD [place] [address] [address] 03/05/2023 14:39:35 03/05/2023 15:34:21 Pain of bilateral knee joints 2625827140 18921 M25.561 M25.562 Osteoarthr itis of right knee joint 9539684784 20883 M17.11 Osteoarthr itis of left knee joint 1896000664 48145 M17.12 Health Concerns Section Related Observation LastModified by Organization Detai ls LastModified Time None Recorded Concern Status LastModified by Organization Details LastModified Time None Recorded Advance Directives Directive None Recorded Payers Encounter Date Sequence Insurance Name Policy Number Policy Brice Covered Member ID Brice Member ID Guarantor Name 03/05/2023 1 [place]) [id number] Ryne Grant [id number] Ryne Grant Notes Date Note Type [...] anybody formally for her knees. She takes cwft-etq-qctvyiy pain medication which gives her some relief. She describes her pain is medial nature that is worse with weightbearing, bending and certain movements. She denies any history of rheumatoid arthritis, gout, Lyme disease. She also denies any history of knee joint infections. JEANNA MCDONOUGH PA-C [address] [place] [address], [place], [address], [place] [facility] 03/06/2023 16:15:55 OBGyn Episode No OBEpisode recorded.
--- OUTSIDE RECORDS SUMMARY | 2024-11-23 17:40 | XMS_ITS | Encounter Summary ---
Author Organization [facility] Address [address] [place] [address] Care Team Providers Care Bedspread Cutter Name Role Phone Bertrand Christianson MD Primary Care Provider [phone] Reason for Visit * Reason Onset Date Comments Sammy: Referral 11/08/2024 Encounter Details Date Type Department Care Team (Late st Contact Info) Description 11/08/2024 Telephone Internal Medicine - [place] [address] [place] [phone] Bertrand Christianson MD [address] [place] [address] Sammy: Referral Social History Tobacco Use Types Packs/Day Years [...] file Not on file Not on file documented as of this encounter Progress Notes * Venus Lyons MA - 11/22/2024 11:36 AM EST faxed * Bertrand Christianson MD - 11/22/2024 11:31 AM EST Referral already placed on 11/08 they need to fax it to the right place * Risa Chavez - 11/22/2024 10:30 AM EST [facility] called about the status of this insurance referral because the patient has a appt tomorrow. Please advise Cb# [phone] * Irina Petersen MA - 11/08/2024 11:53 AM EST Please advise insurance referral below * Risa Chavez - 11/08/2024 11:22 AM EST Referral Request:INSURANCE REFERRAL What insurance does the patient have today? BCBS Referrals cannot be processed if the insurance is not accurate. If the insurance listed above in red is NO BILLING INFORMATION FOUND FOR THIS ENCOUTNER The patients correct insurance must be obtained and registered in [facility] or their referral can not be processed. Is this a retro request? yes. If yes for what date of service do you need the retro referral? 10/23/24 Who is calling to request this referral? [facility] If the caller is not the patient, what is their name? Ask the patient WHO referred them to this specialty: Patient self referred FIRST and LAST NAME of SPECIALIST PATIENT is seeing: Doroteo Kuhn What specialty is this? Pulmonology DIAGNOSIS Patient is being seen for (Not a body part or a procedure): J45.909 Have you seen this SPECIALIST for this PROBLEM/DX before? If YES, when? No Have you checked REVIEW or the APPT DESK to see if this referral has already been done or has visits left? yes Is this visit: Follow Up Address of Specialist: [address] [place] [address] [place] [address] Phone # of Specialist: [phone] Fax #: (if applicable): [phone] Does patient have an appointment scheduled?: yes Date of appointment- (including a retro-request): 11/23/24 Is this appointment related to: Not MVA, worker compensation, or surgery related documented in this encounter Plan of Treatment Not on file documented as of this encounter Visit Diagnoses Not on filedocumented in this encounter Care Teams Bedspread Cutter Relationship Specialty Start Date End Date Bertrand Christianson MD PCP - General Internal Medicine 07/06/19 documented as of this encounter
--- OUTSIDE RECORDS SUMMARY | 2024-11-23 17:40 | XMS_ITS | Encounter Summary ---
Author Organization [facility] Address [address] [place] [address] Care Team Providers Care Diesel Maintenance Electrician Name Role Phone Bertrand Christianson MD Primary Care Provider [phone] Reason for Visit * Reason Onset Date Comments Appointment 11/05/2024 Encounter Details Date Type Department Care Team (Late st Contact Info) Description 11/05/2024 Telephone Internal Medicine - [place] [address] [facility] [address] [place] [phone] Venus Lyons [place] Appointment Social History Tobacco Use Types Packs/Day Years [...] Progress Notes * Venus Lyons MA - 11/05/2024 2:03 PM EST Called pt to reschedule appt for 11/08 n/a lvm to call back documented in this encounter Plan of Treatment Not on file documented as of this encounter Visit Diagnoses Not on filedocumented in this encounter Care Teams Diesel Maintenance Electrician Relationship Specialty Start Date End Date Bertrand Christianson MD PCP - General Internal Medicine 07/06/19 documented as of this encounter
--- OUTSIDE RECORDS SUMMARY | 2024-11-23 17:41 | XMS_ITS ---
Author Organization [facility] Address [address] [address] Care Team Providers Care Training Designer Name Role Phone TATI STEVENS Primary Care Provider REASON FOR VISIT WM f/up Medications Medication SIG (Take, Route, Frequency, Duration) Notes Start Date End Date Status Symbicort 80-4.5 MCG/ACT 2 puffs Inhalat ion Once a day Active Meloxicam 10 MG 1 capsule Orally Onc e a day Active Singulair 10 MG 1 tablet Orally Once a day Active Albuterol Sulfate 108 (90 Base) MCG/ACT 1 puff as needed Inhalation every 4 hrs Active predniSONE 20 MG 2 tablet Orally Once a day Active Methotrexate Active Qsymia 7.5-46 MG 1 capsule Orally Onc e a day for 30 days 06/27/2023 Active Vital Signs Height 62 in 07/24/2023 Encounters Encounter Location Date Provider Diagnosis [facility] [address] [address] 07/24/2023 TATI STEVENS Plan Of Treatment No Information Progress Notes * David BANKSB:1960 (63 yo F)Acc No.[id number]:07/24/2023 Patient:?Kodi Banksjose edaylin Provider:?TATI STEVENS MD :1960???Age:63 Y???Sex:Female D ate:07/24/2023 Address:[address] [place], [place] [phone] Subjective: * Chief Complaints: * ???1. WM f/up. * Medical History:? * Medications:?Taking Methotre xate , Taking Meloxicam 10 MG Capsule 1 capsule Orally Once a day , Taking Symbicort 80-4.5 MCG/ACT Aerosol 2 puffs Inhalation Once a day , Taking Albuterol Sulfate 108 (90 Base) MCG/ACT Aerosol Powder Breath Activated 1 puff as needed Inhalation every 4 hrs , Taking Singulair 10 MG Tablet 1 tablet Orally Once a day , Taking predniSONE 20 MG Tablet 2 tablet Orally Once a day , Taking Qsymia 7.5-46 MG Capsule Extended Release 24 Hour 1 capsule Orally Once a day Objective: * Vitals:?Ht: 62 in. Assessment: Plan: * Treatment: * Procedure Codes:?NOSHO NO SH OW FEE * Images: * Sign off status: Completed true * Provider:?TATI STEVENS MD Date:?07/24 Generated for Kole bang/Deborah/Marcelino on:?11/23/2024 05:40 PM EST
--- OUTSIDE RECORDS SUMMARY | 2024-11-23 17:41 | XMS_ITS ---
Author Organization [facility] Address [address] [facility] [address] [place] [address] Care Team Providers Care Senior Product Consultant Name Role Phone TATI STEVENS Primary Care Provider Allergies No Known Allergies REASON FOR VISIT WM f/up Medications Medication SIG (Take, Route, Frequency, Duration) Notes Start Date End Date Status Meloxicam 10 MG 1 capsule Orally Onc e a day Active Methotrexate Active Symbicort 80-4.5 MCG/ACT 2 puffs Inhalat ion Once a day Active Albuterol Sulfate 108 (90 Base) MCG/ACT 1 puff as needed Inhalation every 4 hrs Active predniSONE 20 MG 2 tablet Orally Once a day Active Singulair 10 MG 1 tablet Orally Once a day Active Qsymia 7.5-46 MG 1 capsule Orally Onc e a day for 30 days 05/12/2023 Active Vital Signs Temperature 96.6 degrees Fahrenheit 06/27/20 23 Oximetry 100 % 06/27/2023 Heart Rate 91 /min 06/27/2023 Blood pressure systolic 110 mm Hg 06/27/20 23 Blood pressure diastolic 60 mm Hg 023 Weight 216 lbs 06/27/2023 BMI 39.5 kg/m2 06/27/2023 Height 62 in 06/27/2023 Encounters Encounter Location Date Provider Diagnosis [facility] [address] [facility] [address] [place] [address] 06/27/2023 TATI STEVENS Morbid (severe) obesity due to excess calories E66.01 and Dietary counseling and surveillance Z71.3 Assessments Encounter Date Diagnosis (ICD Code) Assessment Notes Treatment Notes Treatment Clinical Notes Section Notes 06/27/2023 Morbid (severe) obesity due to excess calories (ICD-10 - E66.01) Mrs. Banks is a 63 year old lady with moderate, persistent asthma, osteoarthritis of bilateral knee joints and SAMIRA here today for medical weight management. She gained a pound since last visit. She is still on prednisone taper which contributes to her weight. Advised to consume more proteins especially when she is on prednisone. Exercise as tolerated. Dietary recommendations. She has seen dietitian. Food recall was done today and patient advised to be on low calorie, low carbohydrate diet. Restrict calories to less than 1500 kcal in 24 hours. Low glycemic index foods and encouraged. Meal replacements were recommended. Advised to use [id number] multivitamins and vitamin D. Advised to use calorie counter and adhere to portion control. Monthly goal is to lose 4-6 pounds Pharmacotherapy. Continue Qsymia for now and plan is to stop Qsymia for a few days after she finishes prednisone to break the tolerance. Exercise. Patient encouraged to increase frequency, intensity and duration of exercise. Encouraged to burn at least 250-500 kcal in one session. Also encouraged to do weight training Assess. Different risk factors discussed with the patient and addressed Advise. She was given clear And specific advise that she will comply with Low-calorie diet and try not to exceed more than 1300 kcal in 24 hours. Agree. Mutually agreed to work together to achieve appropriate goals Assist. Motivational interviewing done. Arrange. Follow-up appointment arranged. Counseling. 20 minutes spent Face to face with the patient more than 50% of time was spent counseling 06/27/2023 Dietary counseling and surveillance (ICD-10 - Z71.3) Mrs. Banks is a 63 year old lady with moderate, persistent asthma, osteoarthritis of bilateral knee joints and SAMIRA here today for medical weight management. She gained a pound since last visit. She is still on prednisone taper which contributes to her weight. Advised to consume more proteins especially when she is on prednisone. Exercise as tolerated. Dietary recommendations. She has seen dietitian. Food recall was done today and patient advised to be on low calorie, low carbohydrate diet. Restrict calories to less than 1500 kcal in 24 hours. Low glycemic index foods and encouraged. Meal replacements were recommended. Advised to use [id number] multivitamins and vitamin D. Advised to use calorie counter and adhere to portion control. Monthly goal is to lose 4-6 pounds Pharmacotherapy. Continue Qsymia for now and plan is to stop Qsymia for a few days after she finishes prednisone to break the tolerance. Exercise. Patient encouraged to increase frequency, intensity and duration of exercise. Encouraged to burn at least 250-500 kcal in one session. Also encouraged to do weight training Assess. Different risk factors discussed with the patient and addressed Advise. She was given clear And specific advise that she will comply with Low-calorie diet and try not to exceed more than 1300 kcal in 24 hours. Agree. Mutually agreed to work together to achieve appropriate goals Assist. Motivational interviewing done. Arrange. Follow-up appointment arranged. Counseling. 20 minutes spent Face to face with the patient more than 50% of time was spent counseling Plan Of Treatment Next Appt Details Follow Up: 4 Weeks, Reason: Progress Notes * David BANKSB:1960 (63 yo F)Acc No.[id number]:06/27/2023 Patient:?Kodi Bankssemaj Provider:?TATI STEVENS MD :1960???Age:63 Y???Sex:Female D ate:06/27/2023 Address:[address] [place], [place] [id number] Pcp:Unknown Unknown Subjective: * Chief Complaints: * ???WM f/up * HPI: ???F/U Obesity:?63 year old female presents with c/o Patient is here for f/u on weight management.?Patient has lost weight?She gained a pound since?last?visit.?patient is on Meal replacement?low-calorie diet.?Patient is exercising?admits.?frequency of exercise?occasional due to breathing problems.?patient on pharmacotherapy?Qsymia.?tolerating medication?yes.?Sleep pattern?SAMIRA on CPAP.? She is still on prednisone taper which contributes to her weight. * ROS:?General/Constitutional:?Overall health?Good.?Change in appetite?denies.?Chills?denies.?Fever?denies.?Night sweats?denies.?Sleep disturbance?denies.?Weight gain?denies.?Weight loss?denies.?Neurologic:?Difficulty speaking?denies.?Dizziness?denies.?Gait abnormality?denies.?Headache?denies.?Loss of strength?denies.?Memory loss?denies.?Seizures?denies.?Tingling/Numbness?denies ?.?Ophthalmologic:?Blurred vision?denies.?Discharge?denies.?Dry eye?denies.?Red eye?denies.?ENT:?Change in Voice?Denies.?Cold Symptoms?Denies.?Cough?Denies.?Dizziness?Denies.?Nasal Congestion?Denies.?Otalgia?Denies.?Nosebleed?denies.?Snoring?denies.?Cardiovascular:?Diaphoresis?Denies.?Pedal Edema?Denies.?PND (Paroxsymal nocturnal dyspnea)?Denies.?Chest pain?denies.?Difficulty laying flat?denies.?Dyspnea on exertion?denies.?Heart murmur?denies.?Orthopnea?denies.?Respiratory:?Snoring?denies.?Asthma?denies.?Cough?denies.?Shortness of breath with exertion?denies.?Sputum production?denies.?Wheezing?denies.?Gastrointestinal:?Change in bowel habits?denies.?Constipation?denies.?Decreased appetite?denies.?Diarrhea?denies.?Heartburn?denies.?Nausea?denies.?Vomiting?harsh es.?Musculoskeletal:?tingling/numbness?Denies.?myalgias?Denies.?Joint Swelling?Denies.?extremeties?normal.?Arthritis?denies.?Back problems?denies.?Carpal tunnel?denies.?Joint stiffness?denies.?Muscle aches?denies.?Endocrine:?Bowel Changes?Denies.?Breast Discharge?Denies.?poor libido?Denies.?Cold intolerance?denies.?Excessive sweating?denies.?Excessive thirst?denies.?Frequent urination?denies.?Thyroid problems?denies.?Skin:?Bruising?Denies.?Eczema?denies.?Hair changes?denies.?Rash?denies.?Skin lesion(s)?denies.?Psychiatric:?Anxiety?denies.?Depressed mood?denies.?Difficulty sleeping?denies.?Nervous breakdown?denies.?Substance abuse?denies.?Urology:?abnormal menstrual bleeding?denies.?blood in urine?denies.?burning on urination?denies.?difficulty urinating?denies.?discharge?denies.?dysuria?denies.? * Medical History:? * Medications:?TakingMethotrex ate Meloxicam 10 MG Capsule 1 capsule Orally Once a day Symbicort 80-4.5 MCG/ACT Aerosol 2 puffs Inhalation Once a day Albuterol Sulfate 108 (90 Base) MCG/ACT Aerosol Powder Breath Activated 1 puff as needed Inhalation every 4 hrs Singulair 10 MG Tablet 1 tablet Orally Once a day predniSONE 20 MG Tablet 2 tablet Orally Once a day Qsymia 7.5-46 MG Capsule Extended Release 24 Hour 1 capsule Orally Once a day Taking Methotrexate Taking Meloxicam 10 MG Capsule 1 capsule Orally Once a day Taking Symbicort 80-4.5 MCG/ACT Aerosol 2 puffs Inhalation Once a day Taking Albuterol Sulfate 108 (90 Base) MCG/ACT Aerosol Powder Breath Activated 1 puff as needed Inhalation every 4 hrs Taking Singulair 10 MG Tablet 1 tablet Orally Once a day Taking predniSONE 20 MG Tablet 2 tablet Orally Once a day Taking Qsymia 7.5- 46 MG Capsule Extended Release 24 Hour 1 capsule Orally Once a day DiscontinuedPhentermine HCl 15 MG Capsule 1 capsule Orally Once a day Qsymia 3.75-23 MG Capsule Extended Release 24 Hour 1 capsule Orally Once a day Medication List reviewed and reconciled with the patientDiscontinued Phentermine HCl 15 MG Capsule 1 capsule Orally Once a day Discontinued Qsymia 3.75-23 MG Capsule Extended Release 24 Hour 1 capsule Orally Once a day Medication List reviewed and reconciled with the patient * Allergies:?N.K.D.A.no[Allerg ies Verified] Objective: * Vitals:?Temp:96.6F, Oxygen s at %:100%, HR:91/min, BP:110/60mm Hg, Wt:216lbs, BMI:39.5Index, Ht: 62 in. * Examination: ???General Examination: ?Psychiatry?Normal.?GENERAL APPEARANCE:?well developed, well nourished, in no acute distress.?HEAD:?normocephalic, atraumatic.?EYES:?pupils equal, round, reactive to light and accommodation, sclera non-icteric.?EARS:?normal.?ORAL CAVITY:?mucosa moist.?THROAT:?clear.?OROPHARYNX?Normal.?SINUSES?Normal.?NECK/THYROID:?neck supple, full range of motion, no cervical lymphadenopathy.?SKIN:?warm and dry, no suspicious lesions.?HEART:?regular rate and rhythm, S1, S2 normal,??,?no murmurs.?LUNGS:?clear to auscultation bilaterally.?ABDOMEN:?soft, nontender, nondistended, bowel sounds present, normal.?EXTREMITIES:?normal.?PERIPHERAL PULSES:?normal.?NEUROLOGIC:?nonfocal,? appropriate?motor strength normal upper and lower extremities, sensory exam intact.?PODIATRIC:?NORMAL?,?BILATERALLY.? Assessment: * Assessment: 1.?Morbid (severe) obesity d ue to excess calories - E66.01 (Primary)?2.?Dietary counseling and surveillance - Z71.3? Mrs. Banks is a 63 year old l emma with moderate, persistent asthma, osteoarthritis of bilateral knee joints and SAMIRA here today for medical weight management. She gained a pound since last visit. She is still on prednisone taper which contributes to her weight. Advised to consume more proteins especially when she is on prednisone. Exercise as tolerated. Dietary recommendations. She has seen dietitian. Food recall was done today and patient advised to be on low calorie, low carbohydrate diet. Restrict calories to less than 1500 kcal in 24 hours. Low glycemic index foods and encouraged. Meal replacements were recommended. Advised to use [id number] multivitamins and vitamin D. Advised to use calorie counter and adhere to portion control. Monthly goal is to lose 4-6 pounds Pharmacotherapy. Continue Qsymia for now and plan is to stop Qsymia for a few days after she finishes prednisone to break the tolerance. Exercise. Patient encouraged to increase frequency, intensity and duration of exercise. Encouraged to burn at least 250-500 kcal in one session. Also encouraged to do weight training Assess. Different risk factors discussed with the patient and addressed Advise. She was given clear And specific advise that she will comply with Low- calorie diet and try not to exceed more than 1300 kcal in 24 hours. Agree. Mutually agreed to work together to achieve appropriate goals Assist. Motivational interviewing done. Arrange. Follow-up appointment arranged. Counseling. 20 minutes spent Face to face with the patient more than 50% of time was spent counseling. Plan: * Treatment: * Procedure Codes:? * Follow Up:?4 Weeks * Images: * Sign off status: Completed true * Provider:?TATI STEVENS MD Date:?06/27 Generated for Kole bang/Deborah/Antoniettaitting on:?11/23/2024 05:40 PM EST History and Physical Notes * HPI (History of Present Illness) Category Sub-Category Detail Notes Category Not es F/U Obesity Patient is here for f/u on weight management She is still on prednisone taper which contributes to her weight. Patient has lost weight She gained a katy nd since last visit patient is on Meal replacement low-calor ie diet Patient is exercising admits frequency of exercise occasional due to breathing problems patient on pharmacotherapy Qsymia tolerating medication yes Sleep pattern SAMIRA on CPAP Examination Category Sub-Category Detail Notes Category Not es General Examination GENERAL APPEARANCE: well dev eloped, well nourished, in no acute distress HEAD: normocephalic, atrau matic EYES: pupils equal, round, reactive to light and accommodation, sclera non-icteric EARS: normal THROAT: clear NECK/THYROID: neck supple, full ra nge of motion, no cervical lymphadenopathy HEART: regular rate and rhy thm, S1, S2 normal, , no murmurs LUNGS: clear to auscultatio n bilaterally ABDOMEN: soft, nontender, non distended, bowel sounds present, normal NEUROLOGIC: nonfocal, appropriat e motor strength normal upper and lower extremities, sensory exam intact SKIN: warm and dry, no tata picious lesions EXTREMITIES: normal PERIPHERAL PULSES: normal ORAL CAVITY: mucosa moist PODIATRIC: NORMAL , BILATERALLY Psychiatry Normal OROPHARYNX Normal SINUSES Normal
--- OUTSIDE RECORDS SUMMARY | 2024-11-23 17:41 | XMS_ITS | Patient Health Record ---
Author Organization [facility] Address [address] [facility] [address] [place] [address] Care Team Providers Care Auto Body Repairer Fiberglass Name Role Phone TATI STEVENS Primary Care Provider [phone] Allergies No Known Allergies Reason For Referral No Information Medications Medication SIG (Take, Route, Frequency, Duration) Notes Start Date End Date Status Methotrexate Active Symbicort 80-4.5 MCG/ACT 2 puffs Inhalat ion Once a day Active Meloxicam 10 MG 1 capsule Orally Onc e a day Active Singulair 10 MG 1 tablet Orally Once a day Active Albuterol Sulfate 108 (90 Base) MCG/ACT 1 puff as needed Inhalation every 4 hrs Active Qsymia 7.5-46 MG 1 capsule Orally Onc e a day for 30 days 06/27/2023 Active predniSONE 20 MG 2 tablet Orally Once a day Active Social History Tobacco Use: Social History Observation Description Date Details (start date - stop date) Never Smoker NA - NA Tobacco Use/Smoking Question Answer Notes Are you a nonsmoker Alcohol Screen (Audit-C) Question Answer Notes Did you have a drink containing alcohol in the p ast year? No Points 0 Interpretation Negative Problems Problem Type SNOMED Code ICD Code Onset Dates Problem Status W/U Status Risk Notes Problem Morbid obesity (disorder) (934601406) Morbid (severe) obesity due to excess calories (E66.01) Active confirmed Problem Obesity due to excess calories (842099531) Other obesity due to excess calories (E66.09) Active confirmed Problem Uncomplicated moderate persistent asthma (381328855) Moderate persistent asthma, uncomplicated (J45.40) Active confirmed Plan Of Treatment No Information Insurance Providers Payer Name Payer Address Payer Phone Subscriber Number Group Number Insured Name Patient Relationship to Insured Coverage Start Date Coverage End Date [facility] [id number] [place] [address] [id number] Ryne Grant Self - patient is the insured Medical (General) History Medical History History ICD Code moderate, persistent asthma, Dr. Evie reveles osteoarthritis of bilateral knee joints, Dr. Gilbert SAMIRA Surgical History Surgery Date(Month/Year) tubal ligation
--- OUTSIDE RECORDS SUMMARY | 2024-11-23 17:41 | XMS_ITS ---
Author Organization [facility] Address [address] [address] Care Team Providers Care Slate Cutter Name Role Phone TATI STEVENS Primary Care Provider REASON FOR VISIT Refill Medications Medication SIG (Take, Route, Fr equency, Duration) Notes Start Date End Date Status Qsymia 7.5-46 MG 1 capsule Orally Onc e a day for 30 days 06/27/2023 Active Encounters Encounter Location Date Provider Diagnosis [facility] [address] [address] 06/27/2023 TATI STEVENS Morbid (severe) obesity due to excess calories E66.01 Assessments Encounter Date Diagnosis (ICD Code) Assessment Notes Treatment Notes Treatment Clinical Notes Section Notes 06/27/2023 Morbid (severe) obesity due to excess calories (ICD-10 - E66.01) Plan Of Treatment Medication Medication Name Sig Start Date Stop Date Notes Qsymia 7.5-46 MG 1 capsule Orally Once a day for 30 days 0 06/27/2023 Progress Notes * David BANKSB:1960 (63 yo F)Acc No.[id number]:06/27/2023 Patient:?Kodi Bankssemaj :1960???Age:63 Y???Sex:Female Address:[address] [place] [phone] * Refills? Refill Qsymia Capsule Extended Release 24 Hour, 7.5-46 MG, Orally, 30 Capsule, 1 capsule, Once a day, 30 days, Refills=3 * true * Date:? Generated for Kole bang/Deborah/eTransmitting on:?11/23/2024 05:40 PM EST
== END 2024-11-23 15:17 | disposition home or self-care (01) ==
LOC: HO.XRAY 15:16
PROVIDERS: PCP Internal Medicine; Visit Provider Hospitalist
DX: J45.41 Moderate persistent asthma with (acute) exacerbation (principal); M94.1 Relapsing polychondritis; R91.1 Solitary pulmonary nodule; R07.81 Pleurodynia
CPT/HCPCS: 71046

== ENCOUNTER 2024-11-23 15:16 | Outpatient (AMB) | payer BC, SELFPAY ==
--- NOTE | 2024-11-23 15:25 | A.OFFVIS_ITS ---
Vital Signs 11/23/24 15:26 Height 5 ft 2 in Weight 162 lb 0.636 oz BMI 29.6 BP 120/68 Blood Pressure Location Rt brachial Position Sitting Pulse 91 Pulse Source Pulse Oximeter Pulse Oximetry (%) 98 Oxygen Delivery Method Room Air Intake Visit Reasons: Asthma Allergies methotrexate Adverse Reaction (Intermediate, Verified 11/23/24 15:31) GI upset HPI Comments Details: The patient is a 64 year woman apparently with a history of asthma in addition to connective tissue disease. Recently she was evaluated by Rheumatology and she was diagnosed with relapsing polychondritis. Mainly affecting the college of her ears. She has been on chronic dose of the prednisone higher and lower dosage is currently a baseline of 20 mg. She was recommended start methotrexate but she was concerned about the medication. I did encourage her to start the methotrexate. She can in consider starting at a lower dose 9 increasing in t itrating up as tolerated. To the dose that she was recommended for her to take. The patient does have significant shortness of breath. She has been using Symbicort. She was also sent Trelegy but she has not been able to start as of yet because of a prior approval. The Symbicort is only partially helpful. Before that she had been on Nucala for her significant asthma but became very expensive and she could not tolerate the cost anymore. Her respiratory status is significantly worsen where she cannot do even activities of daily living due to shortness of breath. In the office we did go for brief walking oximetry. Quickly her oxygen decreased down to about 95% but more importantly a heart rate increased about 125 and she was visibly dyspneic we did dyspnea score of 6/10. The patient may have other pulmonary vascular conditions that may be impacting her respiratory status. The patient did have an echocardiogram with normal cardiac function which is reassuring however. I will going to go ahead and order blood work including a D-dimer to assess for pulmonary vascular conditions. In the meantime will going to optimize respiratory therapy by adding Incruse to her Symbicort. 07/28/2023 the patient is here for a pulmonary follow-up visit. She is been complaining of worsening year discomfort feels like a throbbing the left ear more than the right. Also having some discomfort in the larynx area. This has been going on for several days. She has been on the methotrexate. Unfortunately does not seem to be controlling the significant flare-ups from the relapsing polychondritis. We did review her imaging studies. She did have a CTA which was reassuring without any evidence of any active underlying parenchymal lung disease. No evidence of any thromboembolic disease. Patient's chest pain is overall better. Her breathing is also improved. She continues on the current respiratory therapy with good effect. She also has good adherence. Today because the significant polychondritis will provide her with Solu-Medrol intramuscularly and then the patient start prednisone. 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 12/02/2023 the patient is here for a pulmonary follow-up visit. She is still having difficulty with breathing. She has been Symbicort and Incruse. She is still requiring her rescue inhaler almost on a daily basis. She also has been on prednisone 10 mg daily. In part for her connective tissue disease. She has also been on methotrexate. The patient states that she had been on Nucala before and that was improving her allergies and her asthma symptoms significantly. Therefore she would like to see if we can have her go back on the Nucala at this time. Based on the fact that she is on chronic prednisone that is difficult to assess her eosinophils. The last time they were measuring her absolute count was 400 even on prednisone which is suggesting that is significantly much higher than that. Will try to submit for a prior approval for the Nucala at this time. In the meantime she did follow-up with Rheumatology and she will continue to follow closely regarding her connective tissue condition. She is having some chest discomfort but I did reassure her that it is primarily due to her cartilage inflammation. She does have a small pulmonary nodule that is unlikely to be symptomatic. She will need a repeat CT scan sometime in the summer of 2023. 04/27/2024 the patient is here for a pulmonary follow-up visit. The patient has been doing very well from a respiratory status. She started the Nucala injections and they have been very affecting beneficial. She does not have any significant wheezing or chest tightness and she started the injections. She has been able to back off on some of the Symbicort in the Incruse as well. Although she still struggling with her relapsing polychondritis. She has been the methotrexate. She lost the here and she is very upset about that. The patient also had to increase her prednisone up to 20 mg because she is struggling with her arthritic 80s and discomfort. She needs to follow-up closely with Rheumatology. She would like to come off the methotrexate. Does discussion she needs to have with rheumatology at this time. No imaging studies at this time to review. The patient will continue with the Nucala injections at this time. 08/17/2024 the patient is here for a pulmonary follow-up visit. She has been struggling breathing. Having more wheezing. Moderate severity. Unfortunately she had to stop the Nucala because of the zaidi the cost was too much for her. She is also dealing closely Rheumatology and she is taking other biologic therapies for that and that causes her to have it more issues with her financial constraints. She is using her nebulizer. She is also using inhalers. She is also on 15 mg of prednisone. She feels like her polychondritis is acting up and also has wheezing and stridor on examination. Will go ahead and start her on budesonide with the hope that the budesonide can directly if help her with the upper airway involvement of the polychondritis and also help her with her asthma. She is going to be off the Nucala because of the cost. Will continue to optimize respiratory therapy. If she is no better she is going to come in for chest x-ray. She had a CT scan back in 04/22/2024 which I personally reviewed demonstrating mosaic pattern air trapping consistent with the asthma. She also has some thickening of the airways consistent with her polychondritis. 11/23/2024 the patient is here for pulmonary follow-up visit. Overall she is doing a lot better. Her methotrexate was stopped due to GI upset and she was placed on leflunomide. This new regimen has been very effective for her. She is not having the same adverse effects as she was having before. She feels like her polychondritis much better control. Her breathing also feels better. She has had significant weight loss in his been very affecting beneficial. She does complain of some pleuritic discomfort on the chest area and on the back area feels it is more of the scapula area. Seems to be more musculoskeletal as it is reproducible. Still though she is at risk for pleurisy and will go ahead and request a chest x-ray. She did have a CTA back in 2022 in her lung parenchyma looked okay although she did have some mosaic pattern from air trapping. 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 Review of Systems Const Reports weight gain Eyes Reports no additional complaints ENT Reports change in voice, Denies hoarseness and Reports nose pain Card Reports chest pain, Denies dyspnea and Denies dyspnea on exertion Resp Reports cough, Reports pain on inspiration, Reports pain with cough, Denies dyspnea, Denies dyspnea on exertion and Denies wheezing Musc Reports arthralgias and Reports numbness Neuro Reports numbness Psych Reports abnormal sleep pattern Aller/Immun Denies wheezing Physical Exam Vital Signs: Last Vital Signs Pulse 91 11/23/24 15:26 BP 120/68 11/23/24 15:26 Pulse Ox 98 11/23/24 15:26 Oxygen Delivery Method Room Air 11/23/24 15:26 BMI result Body Mass Index 29.6 Const General: comfortable HEENT Head: Yes normocephalic Ears: external ear abnormal other (pain and swelling) Eyes General: appearance normal, both eyes and all related structures Neck Neck: Yes supple Chest Chest palpation & inspection: normal inspection of the chest Resp Effort & Inspection: normal respiratory effort and stridor Auscultation: clear to auscultation bilaterally, no rales and wheezes Cardio Rate: tachycardic Rhythm: regular rhythm Heart sounds: S1 normal heart sound present and S2 normal heart sound present GI Palpation (GI): Soft to palpation Skin General skin exam: no rashes or lesions noted Extrem General: No clubbing and No cyanosis Assessment & Plan Assessment & Plan (1) Relapsing polychondritis of multiple sites: Comment: dx 12/26 bilateral ear chondritis, costochondritis & seroneg RA Code(s): M94.1 - Relapsing polychondritis Category: Medical (2) Asthma: Code(s): J45.909 - Unspecified asthma, uncomplicated Category: Medical Qualifiers: Asthma complication type: with acute exacerbation Asthma persistence: persistent Asthma severity: moderate Qualified Code(s): J45.41 - Moderate persistent asthma with (acute) exacerbation (3) Pulmonary nodule: Code(s): R91.1 - Solitary pulmonary nodule Category: Medical (4) Pleuritic chest pain: Code(s): R07.81 - Pleurodynia Category: Medical Plan continue symbicort continue Incruse Prednisone taper->15->7.5 stopped Nucala due to cost CXR F/U 6 months Orders: Orders XR chest 2V Today R07.81 - Pleurodynia Coding Level of Care Code Est Pt Level 4 (86008) Diagnoses Relapsing polychondritis of multiple sites M94.1 Moderate persistent asthma with acute exacerbation J45.41 Asthma complication type: with acute exacerbation Asthma persistence: persistent Asthma severity: moderate Pulmonary nodule R91.1 Pleuritic chest pain R07.81 Time Spent (min) 16
[2024-11-23 15:26] VITALS: BP 120/68; PULSE 91; O2SAT 98; BMI 29.6
== END 2024-11-23 15:54 | disposition home or self-care (01) ==
PROVIDERS: PCP Internal Medicine; Visit Provider Hospitalist
DX: M94.1 Relapsing polychondritis (principal); J45.41 Moderate persistent asthma with (acute) exacerbation; R91.1 Solitary pulmonary nodule; R07.81 Pleurodynia
CPT/HCPCS: 99214

== ENCOUNTER → 2024-11-23 16:05 | Outpatient (BNV) | payer BC, SELFPAY | PROVIDERS: PCP Internal Medicine; Visit Provider Radiology Diagnostic Radiology | DX: R07.81 Pleurodynia (principal) | CPT/HCPCS: 71046 ==

== ENCOUNTER 2025-01-11 15:04 | Outpatient (AMB) | payer BC, SELFPAY ==
--- NOTE | 2025-01-11 15:08 | MHC.OFFVIS ---
Vital Signs 01/11/25 15:14 Height 5 ft 2 in Weight 153 lb 10.595 oz BMI 28.1 BP 100/60 Blood Pressure Location Lt brachial Position Sitting Pulse 92 Pulse Source Pulse Oximeter Pulse Oximetry (%) 97 Oxygen Delivery Method Room Air Intake Visit Reasons: Relapsing polychondritis Intake Note: Patient presents for Relapsing Polychondritis. Allergies methotrexate Adverse Reaction (Intermediate, Verified 01/11/25 15:13) GI upset Medication List - Last Reconciled 01/11/25 by Sera Kincaid MD acetaminophen (Tylenol) 650 mg PO Q4H PRN albuterol sulfate 90 mcg/actuation (ProAir HFA) 2 puffs inhalation Q6H PRN albuterol sulfate 2.5 mg inhalation Q4-6H PRN budesonide 0.5 mg (2 mL) inhalation BID 30 days rfptvdwpoq-fgtyrvul-mjlnbexoam 160-9-4.8 mcg/actuation (Breztri Aerosphere) 2 inhalations inhalation BID cyclobenzaprine 10 mg PO TID PRN diclofenac sodium 1% (Arthritis Pain (diclofenac)) 2 grams topical QID epinephrine (EpiPen) 0.3 mg IM Q4H PRN famotidine 20 mg PO DAILY 30 days fluconazole 100 mg PO DAILY 14 days fluticasone propionate 50 mcg/actuation 1 spray intranasal BID leflunomide 20 mg PO DAILY lidocaine HCl 2% (Lidocaine Viscous) 1 appl mucous membrane TID PRN montelukast (Singulair) 10 mg PO DAILY 90 days nebulizers As directed prednisone 7.5 mg (3 x 2.5 mg) PO DAILY tirzepatide 7.5 mg subcut QWEEK zolpidem 5 mg PO BEDTIME NS HPI Comments Details: Patient is a 64-year-old female with seronegative rheumatoid arthritis and relapsing polychondritis here today for follow up Interval History: Patient last seen 10/12/[address] Alan. At that time she was on leflunomide and prednisone 10 mg daily. On this regimen she noted that her pains were much better overall there was no swelling or pain her for ears or her nose. Plan was to taper her prednisone down to 5 mg. Patient states she was unable to taper to 5mg because her asthma would flare so she is currently on 7.5mg Today she complains of painful nodules on her legs and continued inflammation involving her ears and trachea Rheumatologic History: Seronegative rheumatoid arthritis -ve RF -ve CCP dx 12/2022 MTX started 04/2023 DC 05/2024 ineffective and caused hair loss and significant GI upset Leflunomide started 08/2024 effective Relapsing polychondritis dx 12/26 bilateral ear chondritis, costochondritis & seroneg RA Current Rheumatology Medication(s): Leflunomide 20 mg daily Prednisolone 7.5 mg daily PFSH Medical History Pulmonary nodule Tachycardia skilled nursing systemic steroid user Chronic back pain Heart palpitations SAMIRA (obstructive sleep apnea) GERD (gastroesophageal reflux disease) Obesity Asthma Surgical History H/O tubal ligation Family History Mother Diabetes Rheumatoid arthritis Father Asthma Social History Household Members: Children Alcohol intake: never Patient Tobacco Use Status: Former Tobacco user Current occupational status: employed 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 Review of Systems Const Details: Review of Systems Constitutional: Denies fever, chills, weight loss ENT: Denies vision changes, eye pain or eye redness, dental caries, dry mouth GI: Denies nausea, vomiting, diarrhea, abdominal pain, change in BM Pulm: Denies SOB, OROZCO, hemoptysis, wheezing Cards: Denies chest pain, palpitations Skin: Denies Raynaud's, rash, nail changes, photosensitivity, INFORMATICS NURSE: Denies headaches, weakness, paresthesias, recurrent falls MSK: as per HPI All other systems reviewed and are unremarkable except noted above Physical Exam Vital Signs: Last Vital Signs Pulse 92 01/11/25 15:14 BP 100/60 01/11/25 15:14 Pulse Ox 97 01/11/25 15:14 Oxygen Delivery Method Room Air 01/11/25 15:14 BMI result Body Mass Index 28.1 Vital signs reviewed Physical Examination CONSTITUITIONAL Patient alert and cooperative. Well appearing and in no apparent painful distress HEENT Conjunctiva and sclera clear. ?Pupils equal round and reactive to light. ?No lymphadenopathy. Mild swelling noted to bilateral ears sparing the tragus ? CHEST/RESPIRATORY SYSTEM Normal respiratory effort and able to speak in complete sentences. ?Clear to auscultation bilaterally. ?No crackles, rales, rhonchi, wheezes heard. CARDIAC SYSTEM Regular rate and rhythm. ?S1 and S2 heard no murmurs. ?Radial pulses intact bilaterally MSK Hands: ?Good qa internship strength bilaterally. No deformities noted. ?No synovitis noted to the MCPs, PIPs or DIPs. ?No tenderness to palpation of these joints. Wrists: ?Full range of motion at the wrists without pain. ?No tenderness to palpation or synovitis noted to the wrists. Elbows: Full range of motion without pain. No tenderness, weakness, swelling, increased warmth or erythema. Shoulders: Full range of motion without pain. No tenderness, weakness, swelling, increased warmth or erythema. Hips: Full range of motion without pain. Hip bursa: No tenderness to palpation Knees: ?Full range of motion. ?TTP of the medial left knee Ankles: Full range of motion. ?No tenderness, swelling, increased warmth or erythema.? Feet: ?Negative squeeze test. ?No tenderness to palpation or swelling of the MTPs. Tender points:?No tenderness to palpation of the bilateral trapezius, supraspinatus, greater trochanters, anterior costochondral junctions, bilateral gluteal areas, bilateral suboccipital muscle insertions SKIN Erythema nodosum palpated on lateral thigh Results Reviewed Results Reviewed: Laboratory Tests 09/29/24 10:12 WBC 9.6 RBC 4.27 Hgb 12.7 Hct 38.7 Plt Count 213 ESR 11 Sodium 144 Potassium 3.9 Chloride 109 H Carbon Dioxide 25 BUN 17 H Creatinine 0.80 Calcium 9.3 D Total Bilirubin 0.3 AST 25 ALT 24 Alkaline Phosphatase 70 C-Reactive Protein 0.96 H Total Protein 6.9 Albumin 3.9 Immunology labs 01/10/23 15:05 Rheumatoid Factor < 13.0 Cycl Citrul Peptide IgG <16 RYAN Screen NEGATIVE Proteinase 3 (PR3) Ab <1.0 Myeloperoxidase Ab <1.0 Complement C3 151 Complement C4 38 Infectious labs 01/10/23 15:05 Hepatitis A IgM Ab Nonreactive Hep Bs Antigen Negative Hep Bs Antibody REACTIVE Hep B Core Total Ab Reactive Hepatitis C Ab (EIA) Nonreactive TB Test (T-Spot) Com Negative Assessment & Plan Assessment & Plan (1) Seronegative rheumatoid arthritis: Comment: -ve RF -ve CCP dx 12/2022 MTX started 04/2023 DC 05/2024 ineffective and caused hair loss and significant GI upset Leflunomide started 08/2024 effective Code(s): M06.00 - Rheumatoid arthritis without rheumatoid factor, unspecified site Category: Medical Plan: #Seronegative RA Patient is a 64-year-old female with relapsing polychondritis complicated by bilateral ear chondritis and seronegative rheumatoid arthritis returns for follow-up. Still with evidence of inflammation on examination. Also with erythema nodusum which can be seen in patients with RP Plan to add dapsone to regimen Monitor for anemia in 1 month Plan - Leflunomide 20mg daily - Prednisone 7.5mg daily - Dapsone 25mg bid for 1 month then check CBC. If CBC okay increase to 50mg bid - Trazadone 50mg PO bedtime for sleep per patient request - Labs today: CBC, CMP, ESR, CRP - RTC 3 months - Labs before visit: CBC, CMP, ESR, CRP (2) Relapsing polychondritis of multiple sites: Comment: dx 12/26 bilateral ear chondritis, costochondritis & seroneg RA Code(s): M94.1 - Relapsing polychondritis Category: Medical Plan: #Relapsing polychondritis Currently not in remission Adding dapsone to regimen (3) Encounter for monitoring leflunomide therapy: Code(s): Z51.81 - Encounter for therapeutic drug level monitoring; Z79.69 - skilled nursing (current) use of other immunomodulators and immunosuppressants Plan: #Long-term leflunomide Discussed with patient the benefits and risks of leflunomide for managing the rheumatic condition Benefits include: - Reduced pain, maintenance of remission and reduction of flares Risks include: - GI upset especially diarrhea, skin rash, cytopenias, hepatotoxicity, weight loss, neuropathy Leflunomide is highly teratogenic. ?Has a very long half-life. ?Needs cholestyramine washout if there is desire for Initiation: ?CBC, BMP, LFTs, hepatitis-B and C serologies every 2-4 weeks for 3 months Monitoring: ?CBC, BMP, LFTs, hepatitis B and C serologies (4) Encounter for fci current use of dapsone: Code(s): Z79.899 - Other superintendent container terminal (current) drug therapy Plan: #buttermaker continuous churn use of dapsone Risks and benefits of dapsone explained to patient. Benefits include improved control of autoimmune disease Risks include autoimmune hemolytic anemia We will check CBC 1 month after commencing and every 3-4 months Plan I spent 45 minutes reviewing the record and labs, taking a history, examining the patient, discussing the treatment plan and documenting in the medical record Orders: Orders Comprehensive Met. Panel Today M06.00 - Rheumatoid arthritis without rheumatoid factor, unspecified site C Reactive Protein Today M06.00 - Rheumatoid arthritis without rheumatoid factor, unspecified site Erythrocyte Sedimentation Rate Today M06.00 - Rheumatoid arthritis without rheumatoid factor, unspecified site Hepatitis A,B,C Profile Today M06.00 - Rheumatoid arthritis without rheumatoid factor, unspecified site T Spot TB Today M06.00 - Rheumatoid arthritis without rheumatoid factor, unspecified site Complete Blood Count Auto Diff 1 Month M06.00 - Rheumatoid arthritis without rheumatoid factor, unspecified site, Z79.899 - Other fci (current) drug therapy Complete Blood Count Auto Diff Today M06.00 - Rheumatoid arthritis without rheumatoid factor, unspecified site Medications: New trazodone 50 mg PO BEDTIME PRN 90 tabs 1RF sleep G47.00 - Insomnia, unspecified dapsone 25 mg PO DAILY 30 tabs 0RF M94.1 - Relapsing polychondritis Refilled leflunomide 20 mg PO DAILY 90 tabs 1RF M06.00 - Rheumatoid arthritis without rheumatoid factor, unspecified site Coding Level of Care Code Est Pt Level 5 (46861) Complex EM visit Add On G2211 Diagnoses Seronegative rheumatoid arthritis M06.00 Relapsing polychondritis of multiple sites M94.1 Encounter for monitoring leflunomide therapy Z51.81; Z79.69 Encounter for superintendent container terminal current use of dapsone Z79.899
[2025-01-11 15:14] VITALS: BP 100/60; PULSE 92; O2SAT 97; BMI 28.1
--- OUTSIDE RECORDS SUMMARY | 2025-01-11 18:21 | XMS_ITS | Encounter Summary ---
Author Organization [facility] Address [address] [place] [address] Care Team Providers Care Sandblast Operator Name Role Phone Bertarnd Christianson MD Primary Care Provider [phone] Reason for Visit * Reason Onset Date Comments Referral 12/16/2024 Referral for Rhe umatology Encounter Details Date Type Department Care Team ([facility] st Contact Info) Description 12/16/2024 Telephone Internal Medicine - [place] [address] [place] [phone] Bertrand Christianson MD [address] [place] [address] Referral (Referral for Rheumatology) Social History Tobacco Use Types Packs/Day Years Used Date Smoking Tobacco: Former Cigarettes 1 25 0 11/03/1979 - 11/03/2004 Smokeless Tobacco: Never Alcohol Use Standard Drinks/Week Comments No 0 (1 standard drink = 0.6 oz pur e alcohol) Comments Unknown Sex and Gender Information Value Date Recorded Sex Assigned at Not on file Legal Sex Female 3:33 PM EST Gender Identity Not on file Sexual Orientation Not on file documented as of this encounter Progress Notes * Irina Petersen MA - 12/17/2024 10:01 AM EST Please advise referral request * Ronna Ramirez - 12/16/2024 10:48 AM EST Please create an order for the referral [place] [facility] [place] Insurance: BCBS ID: [id number] Provider: Dr Kincaid DOS: 12/16/24 Visits: 8 Dx code: M06.00 IMPORTANT Pls copy and paste this into the order. Otherwise, it will not be processed as an ins referral documented in this encounter Plan of Treatment Not on file documented as of this encounter Visit Diagnoses Not on filedocumented in this encounter Care Teams Sandblast Operator Relationship Specialty Start Date End Date Bertrand Christianson MD [address] [address] PCP - General Internal Medicine 12/05/24 documented as of this encounter
--- OUTSIDE RECORDS SUMMARY | 2025-01-11 18:21 | XMS_ITS | Clinical Summary ---
Author Organization 175 [facility] Address [address] [place] [address] Phone Care Team Providers Care Blanket Folder Name Role Phone Bertrand Christianson MD Primary Care Provider [phone] Allergies No known active allergies Medications albuterol HFA (ProAir HFA) 90 mcg/actuation inhaler Inhale 2 puffs by mouth. 2 Active cetirizine (ZyrTEC) 10 mg tablet Take 1 tablet (10 mg total) by mouth. 3 Active cyclobenzaprine (FLEXERIL) 10 mg tablet Take 1 tablet (10 mg total) by mouth 3 (three) times a day if needed for muscle spasms. Active diclofenac (VOLTAREN) 1 % topical gel Apply 2 g topically. 1 Active EPINEPHrine (EpiPen 2-Daniel) 0.3 mg/0.3 mL injection Inject 0.3 mL (0.3 mg total) as directed. 3 Active folic acid (FOLVITE) 1 mg tablet Take 1 tablet (1,000 mcg total) by mouth 1 (one) time each day. Active ipratropium-albuter oL (DUONEB) 0.5-2.5 mg/3 mL nebulizer solution Inhale 3 mL by mouth. 2 Active meloxicam submicronized 10 mg capsule 1 capsule 1 (one) time each day at the same time. Active montelukast (Singulair) 10 mg tablet 1 tablet (10 mg total) 1 (one) time each day at the same time. Active omeprazole (PriLOSEC) [address] capsule Take 1 capsule (20 mg total) by mouth 1 (one) time each day. 1 Active ondansetron ODT (ZOFRAN-ODT) 4 mg disintegrating tablet DISSOLVE 1 TABLET ON TONGUE 3 TIMES DAILY NEEDED FOR 10 DAYS 4 Active zolpidem (AMBIEN) 5 mg tablet TAKE 1 TABLET BY MOUTH BEDTIME MAY REPEAT ONCE IF NO RESPONSE IN 30-60 MINUTES 3 Active predniSONE (DELTASONE) 20 mg tablet Take 1 tablet (20 mg total) by mouth 1 (one) time each day. 15 tablet 4 Active leflunomide (ARAVA) 10 mg tablet Take 1 tablet (10 mg total) by mouth 1 (one) time each day. 20 tablet 4 Active Encounters Date Type Department Care Team Description 12/16/2024 Telephone Internal [address] [address] Bertrand Christianson MD Referral (Referral for Rheumatology) 12/09/2024 1:30 PM EST Clinical Support Walk-In [address] [phone] Adult general medical examination (Primary Dx) 12/07/2024 1:15 PM EST Office Visit Walk-In [address] [phone] Bernabe Ray MD Physical exam, pre-employment (Primary Dx) 11/08/2024 Telephone Internal Medicine [address] [address] Bertrand Christianson MD Joseph: Referral 11/05/2024 Telephone Internal [address] [phone] Venus Lyons [place] Appointment from Last 3 Months Immunizations Name Administration Dates Next Due PPD Test 12/07/2024,01/15/2023,08/24/2021 ,07/22/2012,06/02/2007,09/16/2002 Surgical History Surgery Date Site/Laterality Comments OTHER SURGICAL HISTORY PROCEDURE: [place] LIG/TRNSXJ FLP TUBE ABDL/VAG APPR UNI/BI TONSILLECTOMY ADENOIDECTOMY, BILATERAL MYRINGOTOMY AND TUBES PROCEDURE: [place] TONSILLECTOMY & ADENOIDECTOMY <AGE 12 Medical History Medical History Date Comments Anxiety state, unspecified 11/19/2006 DX:An xiety state, unspecified Allergic conjunctivitis of both eyes 12/03/2017 DX:Allergic conjunctivitis of both eyes; COMMENT: Cat and dog Asthma 06/04/2007 DX:Asthma Chronic back pain 10/31/2006 DX:Chronic jolene k pain; COMMENT: IMO update Depressive disorder 11/19/2006 DX:Depressiv e disorder; COMMENT: seeing kelsey moeller [address] [facility] [phone] Heart palpitations 12/03/2017 DX:Heart palp [...] on file Sexual Orientation Not on file Obstetrics History Last Filed Vital Signs Vital Sign Reading Time Taken Comments Blood Pressure 102/60 12/07/2024 1:33 PM EST Pulse 92 12/07/2024 1:33 PM EST Temperature 36.5 ??C (97.7 ??F) 12/07/2024 1:33 PM ES T Respiratory Rate - - Oxygen Saturation 97% 12/07/2024 1:33 PM EST Inhaled Oxygen Concentration - - Weight 71.7 kg (158 lb) 12/07/2024 1:33 PM EST Height 157.5 cm (5' 2 ) 12/07/2024 1:33 PM EST Body Mass Index 28.9 12/07/2024 1:33 PM EST Plan of Treatment Health Maintenance Due Date Last Done Comments Breast Cancer Screening 1960 DTaP,Tdap,and Td Vaccines (1 - Tdap) 1979 Pneumococcal Vaccine: 50+ Years (1 of 2 - PCV) 1979 Pneumococcal Vaccine: Pediatrics (0 to 5 Years) and At-Risk Patients (6 to 64 Years) (1 of 2 - PCV) 1979 Cervical Cancer Screening: P ap Smear [...] patient's age to complete this topic Meningococcal B Vacine Aged Out No lo nger eligible based on patient's age to complete this topic RSV Immunization Patients Under 20 months Aged Out No longer eligible b ased on patient's age to complete this topic Varicella Vaccines Aged Out No longer eligible based on patient's age to complete this topic Procedures Procedure Name Priority Date/Time Associated Diagnosis Comments READ PPD Routine 12/09/2024 2:36 PM EST Adult general medical examination from Last 3 Months Results * Read PPD (12/09/2024 2:36 PM EST) TB Skin Test Negative Negative, Not Done, Other, See Comment Induration 0 mm Other 12/09/2024 2:36 PM EST Bernabe Ray MD POINT OF CARE TEST ENTER/EDIT OR DERABLES Final Result from Last 3 Months Insurance [facility] Care Teams Blanket Folder Relationship Specialty Start Date End Date Bertrand Christianson MD [address] [facility] [address] [place] [address] PCP - General Internal Medicine 12/05/24
--- OUTSIDE RECORDS SUMMARY | 2025-01-11 18:21 | XMS_ITS | Data Portability ---
Author Organization [place] [facility] [place] Address [address] [place] [address] Care Team Providers Care Service Desk Agent Name Role Phone MARY JANE BENITES Primary [...] view - Left Knee Pain [address] [place] [address] [facility], [address], [place], [address], 3 09:31:12 XR, knee, 1 or 2 view - Right Knee Pain [address] [place] [address] [facility], [address], [place], [address], 3 09:31:12 XR, knee, weightbeari ng - Bilateral Knee Pain [address]22 [address] [place] [address] [facility], [address], [place], [address], 3 09:31:12 Medication Orders Kenalog 40 mg/mL suspension for injection [address] [place] [address] [id number], [phone] [place], [address], 3 16:15:52 lidocaine (PF) 10 mg/mL (1 %) injection solution [address] [place] [address] [id number], [phone] [place], [address], 16:15:52 Kenalog 40 mg/mL suspension for injection 2022 023 [email or web address] Not available 12:38:24 lidocaine (PF) 10 mg/mL (1 %) injection solution 2022 023 [email or web address] Not available 12:38:24 Patient TargetsNo targets recorded. Patient Instructions Encounter Date Encounter Id Patient Instructions Last Modified By Organization Details Last Modified Time 03/05/2023 [id number] You have been provided with a cortisone [...] office or contact us through the portal [facility]. Not available 03/06/2023 16:15:06 X-rays of the [...] Recorded Time Pain of bilateral knee joints 1876011209800 04 Active 2022 JEANNA MCDONOUGH PA-C [address], [place], [address], [place] [facility], P 3 08:20:44 Osteoarthri tis of right knee joint 6280021472663 00 Active 2022 JEANNA MCDONOUGH PA-C [address], [place], [address], [place] [facility], P 3 16:12:10 Osteoarthri tis of left knee joint 1572523532542 09 Active 2022 JEANNA MCDONOUGH PA-C [address], [place], [address], [place] [facility], P 3 16:12:15 Problem Notes None recorded. Procedures Surgical History Date Name Laterality Status Provider Name and Address Organization Details Recorded Time 05/28/2023 Knee Joint/Burs a Asp & Inj cancelled JEANNA MCDONOUGH PA-C [address], [place], [address], [place] [facility], [facility] 05/28/2023 08:21:07 03/05/2023 Knee Joint/Burs a Asp & Inj completed JEANNA MCDONOUGH PA-C [address], [place], [address], [place] [facility], [facility] 03/06/2023 16:14:28 Imaging Results None recorded. [...] Address Organization Details Last Updated DateTime 03/05/2023 041092.28 g 41.2 kg/m2 157.[address] [place] [facility] 03/05/2023 15:02:52 Social History Question Answer Notes LastModified by Organizat ion Details LastModified Time Tobacco Smoking Status Unknown If Ever Smoked Massiel Deleon null, [place] [facility] 03/05/2023 14:57:51 What Is Your Level [...] Diagnosis Note 8304 Vincent Baez MD [place] [address] [address] 03/05/2023 14:39:35 03/05/2023 15:34:21 Pain of bilateral knee joints 8655006514 38970 M25.561 M25.562 Osteoarthr itis of right knee joint 5319755189 62783 M17.11 Osteoarthr itis of left knee joint 9700382477 53866 M17.12 Health Concerns Section Related Observation LastModified by Organization Detai ls LastModified Time None Recorded Concern Status LastModified by Organization Details LastModified Time None Recorded Advance Directives Directive None Recorded Payers Encounter Date Sequence Insurance Name Policy Number Policy Brice Covered Member ID Brice Member ID Guarantor Name 03/05/2023 1 [place]) [id number] Ryne Garnt [id number] Ryne Grant Notes Date Note Type [...] anybody formally for her knees. She takes yzqa-dji-ufcjdug pain medication which gives her some relief. She describes her pain is medial nature that is worse with weightbearing, bending and certain movements. She denies any history of rheumatoid arthritis, gout, Lyme disease. She also denies any history of knee joint infections. JEANNA MCDONOUGH PA-C [address] [place] [address], [place], [address], [place] [facility] 03/06/2023 16:15:55 OBGyn Episode No OBEpisode recorded.
--- OUTSIDE RECORDS SUMMARY | 2025-01-11 18:21 | XMS_ITS | Patient Health Record ---
Author Organization [facility] Address [address] [place] [address] Care Team Providers Care Nylon Machine Operator Name Role Phone TATI STEVENS Primary Care Provider [phone] Allergies No Known Allergies Reason For Referral [...] Status Risk Notes Problem Morbid obesity (disorder) (667601523) Morbid (severe) obesity due to excess calories (E66.01) Active confirmed Problem Obesity due to excess calories (013127098) Other obesity due to excess calories (E66.09) Active confirmed Problem Uncomplicated moderate persistent asthma (996060631) Moderate persistent asthma, uncomplicated (J45.40) Active confirmed Plan Of Treatment No Information Insurance Providers Payer Name Payer Address Payer Phone Subscriber Number Group Number Insured Name Patient Relationship to Insured Coverage Start Date Coverage End Date [facility] [id number] [place] [address] [id number] Ryne Grant Self - patient is the insured Medical (General) History Medical History History ICD Code moderate, persistent asthma, Dr. Evie reveles osteoarthritis of bilateral knee joints, Dr. Gilbert SAMIRA Surgical History Surgery Date(Month/Year) tubal ligation
--- OUTSIDE RECORDS SUMMARY | 2025-01-11 18:21 | XMS_ITS ---
Author Name [facility] Organization Unknown Encounters Encounter Type Encounter Reason Primary Diagnosis Location Date Ambulatory [facility] 07/04/2023 Ambulatory [facility] 05/30/2023 Ambulatory [facility] 04/25/2023 Ambulatory [facility] 03/05/2023 Ambulatory [facility] 03/05/2023 Ambulatory [facility] 03/05/2023 Ambulatory [facility] 03/05/2023 Ambulatory [facility] 03/05/2023 Ambulatory [facility] 03/03/2023 Ambulatory [facility] 03/03/2023 Ambulatory [facility] 03/03/2023 Ambulatory [facility] 02/28/2023 Ambulatory [facility] 02/28/2023 Ambulatory [facility] [place] 02/28/2023 Ambulatory [facility] 02/28/2023
--- OUTSIDE RECORDS SUMMARY | 2025-01-11 18:21 | XMS_ITS ---
Author Organization [facility] Address [address] [address] Care Team Providers Care Senior Operator Name Role Phone TATI STEVENS Primary Care Provider [phone] REASON FOR VISIT WM f/up Medications Medication [...] 07/24/2023 Encounters Encounter Location Date Provider Diagnosis [facility] [address] [address] 07/24/2023 TATI STEVENS Plan Of Treatment No Information Progress Notes * David BANKSB:1960 (63 yo F)Acc No.[id number]:07/24/2023 Patient:?Kodi Bankssemaj Provider:?TATI STEVENS MD :1960???Age:63 Y???Sex:Female D ate:07/24/2023 Address:[address] [place], [place] [id number] Subjective: * Chief Complaints: * ???1. WM [...] STEVENS MD Date:?07/24 Generated for Kole bang/Deborah/Marcelino on:?01/11/2025 06:21 PM EDT
== END 2025-01-11 15:53 | disposition home or self-care (01) ==
LOC: HO.RHE 15:04
PROVIDERS: PCP Internal Medicine; Visit Provider Student in an Organized Health Care Education/Training Program
DX: M06.09 Rheumatoid arthritis without rheumatoid factor, multiple sites (principal); M94.1 Relapsing polychondritis; Z51.81 Encounter for therapeutic drug level monitoring; Z79.69 Long term (current) use of other immunomodulators and immunosuppressants; Z79.899 Other long term (current) drug therapy
CPT/HCPCS: 99215

== ENCOUNTER 2025-01-11 15:04 | Outpatient (REF) | payer BC, SELFPAY ==
[2025-01-11 16:16] LABS: MANUAL DIFF FLAG NO
[2025-01-11 16:57] LABS: Basophils Absolute Auto 0.1 X10*3/uL (0.0-0.2); Basophils Percent Auto 0.6 % (0-2); Eosinophils Absolute Auto 0.1 X10*3/uL (0.0-0.4); Eosinophils Percent Auto 0.9 % (0-4); Hematocrit 34.1 % (37.0-47.0); Hemoglobin 11.7 g/dl (12.0-16.0); Imm Gran Abs Auto 0.07 X10*3/uL (0.00-0.03); Imm Gran Pct Auto 0.7 % (0.0-0.4); Lymphocytes Absolute Auto 1.2 X10*3/uL (1.2-4.9); Lymphocytes Percent Auto 11.5 % (20-40); Mean Corpuscular HGB Conc 34.3 g/dl (31.0-35.0); Mean Corpuscular Hemoglobin 30.5 pg (27.0-33.0); Mean Corpuscular Volume 88.8 fL (80.0-98.0); Mean Platelet Volume 11.8 fL (9.4-12.3); Monocytes Absolute Auto 0.6 X10*3/uL (0.1-1.2); Monocytes Percent Auto 5.4 % (2-11); Neutrophils Absolute Auto 8.4 x10*3/uL (2.0-8.3); Neutrophils Percent Auto 80.9 % (45-73); Platelet Count 259 X10*3/uL (160-400); Red Blood Count 3.84 X10*6/uL (4.20-5.50); Red Cell Distribution Width 13.2 % (11.0-16.0); White Blood Count 10.3 X10*3/uL (4.8-10.8)
[2025-01-11 17:41] LABS: Erythrocyte Sedimentation Rate 18 MM/HR (0-20)
[2025-01-11 17:49] LABS: Alanine Aminotransferase 18 U/L (0-31); Albumin Level 3.8 g/dL (3.5-5.0); Alkaline Phosphatase 78 U/L (39-117); Anion Gap 12 (12-20); Aspartate Amino Transferase 21 U/L (5-31); Bilirubin Total 0.3 mg/dL (0.0-1.0); Blood Urea Nitrogen 13 mg/dL (9-16); C Reactive Protein 0.28 mg/dL (< or = 0.50); Carbon Dioxide 24 mmol/L (22-29); Chloride 109 mmol/L (96-108); Estimated Glomerular Filt Rate > 60; Glucose Random 93 mg/dL (60-115); Potassium 3.9 mmol/L (3.3-5.1); Sodium 141 mmol/L (135-145); Total Protein 7.2 g/dL (6.5-8.0)
--- OUTSIDE RECORDS SUMMARY | 2025-01-11 19:16 | XMS_ITS | Clinical Summary ---
Author Organization 175 [facility] Address 175 [place] [address] Phone Care Team Providers Care Systems Designer Name Role Phone Bertrand Christianson MD Primary Care Provider [phone] Allergies No known active allergies Medications albuterol [...] Department Care Team Description 12/16/2024 Telephone Internal [address] [address] Bertrand Christianson MD Referral (Referral for Rheumatology) 12/09/2024 1:30 PM EST Clinical Support Walk-In [address] [phone] Adult general medical examination (Primary Dx) 12/07/2024 1:15 PM EST Office Visit Walk-In [address] [phone] Bernabe Ray MD Physical exam, pre-employment (Primary Dx) 11/08/2024 Telephone Internal Medicine [address] [address] Bertrand Christianson MD Joseph: Referral 11/05/2024 Telephone Internal [address] [phone] Venus Lyons [place] Appointment from Last 3 Months Immunizations Name Administration Dates Next Due PPD Test 12/07/2024,01/15/2023,08/24/2021 ,07/22/2012,06/02/2007,09/16/2002 Surgical History Surgery Date Site/Laterality Comments OTHER SURGICAL HISTORY PROCEDURE: [place] LIG/TRNSXJ FLP TUBE ABDL/VAG APPR UNI/BI TONSILLECTOMY ADENOIDECTOMY, BILATERAL MYRINGOTOMY AND TUBES PROCEDURE: [place] TONSILLECTOMY & ADENOIDECTOMY <AGE 12 Medical History Medical History Date Comments Anxiety state, unspecified 11/19/2006 DX:An xiety state, unspecified Allergic conjunctivitis of both eyes 12/03/2017 DX:Allergic conjunctivitis of both eyes; COMMENT: Cat and dog Asthma 06/04/2007 DX:Asthma Chronic back pain 10/31/2006 DX:Chronic jolene k pain; COMMENT: IMO update Depressive disorder 11/19/2006 DX:Depressiv e disorder; COMMENT: seeing kelsey moeller [address] [facility] [phone] Heart palpitations 12/03/2017 DX:Heart palp [...] Final Result from Last 3 Months Insurance [facility] Care Teams Systems Designer Relationship Specialty Start Date End Date Bertrand Christianson MD 175 [facility] [address] [place] [address] PCP - General Internal Medicine 12/05/24
--- OUTSIDE RECORDS SUMMARY | 2025-01-11 19:16 | XMS_ITS | Encounter Summary ---
Author Organization [facility] Address [address] [place] [address] Care Team Providers Care Structural Test Engineer Name Role Phone Bertrand Christianson MD Primary Care Provider [phone] Reason for Visit * Reason Onset Date Comments Referral 12/16/2024 Referral for Rhe umatology Encounter Details Date Type Department Care Team ([facility] st Contact Info) Description 12/16/2024 Telephone Internal Medicine - [place] [address] [place] [phone] Bertrand Christianson MD [address] [place] [address] Referral (Referral for Rheumatology) Social History Tobacco [...] create an order for the referral Caller: [facility] Office: Rheumatology Insurance: BC[employer] ID: [id number] Provider: Dr Kincaid DOS: 12/16/24 Visits: 8 Dx code: M06.00 IMPORTANT Pls copy and paste this into the order. Otherwise, it will not be processed as an ins referral documented in this encounter Plan of Treatment Not on file documented as of this encounter Visit Diagnoses Not on filedocumented in this encounter Care Teams Structural Test Engineer Relationship Specialty Start Date End Date Bertrand Christianson MD [address] [address] PCP - General Internal Medicine 12/05/24 documented as of this encounter
[2025-01-12 04:05] LABS: HBS Num1 > 1000.00 mIU/mL (0-7.99); HBc Num1 9.39 S/CO (0.00-0.79); HBsAGNum1 0.21 S/CO (0.00-0.99); Hepatitis A Antibody IgM 0.14 Index (0-0.79); Hepatitis B Surface Antigen Negative (Negative); ~HepC Num1 0.19 S/CO (0.00-0.79); ~Hepatitis A Antibody IgM Nonreactive (Nonreactive); ~Hepatitis B Surface Antibody REACTIVE (Nonreactive); ~Hepatitis C Antibody Nonreactive (Nonreactive)
[2025-01-12 04:41] LABS: HBc Num2 9.37 S/CO; HBc Num3 9.42 S/CO; Hepatitis B Core Antibody Reactive (Nonreactive)
[2025-01-14 00:24] LABS: TS Negative Control Passed; TS Panel A 0; TS Panel B 0; TS Positive Control Passed; TSpotTB Negative (Negative)
== END 2025-01-11 15:05 | disposition home or self-care (01) ==
LOC: HO.LAB 15:04
PROVIDERS: PCP Internal Medicine; Visit Provider Student in an Organized Health Care Education/Training Program
DX: M06.00 Rheumatoid arthritis without rheumatoid factor, unspecified site (principal)
CPT/HCPCS: 36415; 80053; 85025; 85652; 86140; 86481; 86704; 86706; 86709; 86803; 87340

== ENCOUNTER 2025-05-24 15:24 | Outpatient (REF) | payer BC, SELFPAY ==
[2025-05-24 16:08] LABS: MANUAL DIFF FLAG NO
[2025-05-24 17:10] LABS: Hematocrit 32.2 % (37.0-47.0); Hemoglobin 10.6 g/dl (12.0-16.0); Imm Gran Abs Auto 0.03 X10*3/uL (0.00-0.03); Imm Gran Pct Auto 0.4 % (0.0-0.4); Lymphocytes Absolute Auto 1.4 X10*3/uL (1.2-4.9); Mean Corpuscular HGB Conc 32.9 g/dl (31.0-35.0); Mean Corpuscular Hemoglobin 31.8 pg (27.0-33.0); Mean Corpuscular Volume 96.7 fL (80.0-98.0); NRBC Abs Auto 0.000 X10*3/uL (0.0-0.012); NRBC Pct Auto 0.0 /100WBC (0.0-0.2); Platelet Count 212 X10*3/uL (160-400); Red Blood Count 3.33 X10*6/uL (4.20-5.50); White Blood Count 7.5 X10*3/uL (4.8-10.8)
[2025-05-24 17:33] LABS: Alanine Aminotransferase 15 U/L (0-31); Albumin Level 4.1 g/dL (3.5-5.0); Alkaline Phosphatase 61 U/L (39-117); Anion Gap 10 (12-20); Aspartate Amino Transferase 21 U/L (5-31); Blood Urea Nitrogen 19 mg/dL (9-16); Calcium 9.0 mg/dL (8.4-10.2); Carbon Dioxide 26 mmol/L (22-29); Chloride 108 mmol/L (96-108); Estimated Glomerular Filt Rate > 60; Potassium 3.7 mmol/L (3.3-5.1); Sodium 140 mmol/L (135-145); Total Protein 6.8 g/dL (6.5-8.0)
[2025-05-30 14:43] LABS: Glucose-6-Phosphate Dehydrogen 16.0 U/g Hgb (7.0-20.5)
== END 2025-05-24 15:25 | disposition home or self-care (01) ==
LOC: HO.LAB 15:24
PROVIDERS: PCP Internal Medicine; Visit Provider Student in an Organized Health Care Education/Training Program
DX: R07.81 Pleurodynia (principal); J44.9 Chronic obstructive pulmonary disease, unspecified; J45.40 Moderate persistent asthma, uncomplicated; M06.00 Rheumatoid arthritis without rheumatoid factor, unspecified site; Z79.899 Other long term (current) drug therapy; M94.1 Relapsing polychondritis
CPT/HCPCS: 36415; 80053; 82955; 85025; 85652; 86140

== ENCOUNTER 2025-05-24 15:24 | Outpatient (AMB) | payer BC, SELFPAY ==
[2025-05-24 15:27] VITALS: BP 112/62; PULSE 91; O2SAT 98; BMI 25.2
--- NOTE | 2025-05-24 15:27 | A.OFFVIS_ITS ---
Vital Signs 05/24/25 15:27 Height 5 ft 2 in Weight 137 lb 12.623 oz BMI 25.2 BP 112/62 Blood Pressure Location Lt brachial Position Sitting Pulse 91 Pulse Source Pulse Oximeter Pulse Oximetry (%) 98 Oxygen Delivery Method Room Air Intake Visit Reasons: Asthma Accompanied by: Self / Same As Patient Allergies methotrexate Adverse Reaction (Intermediate, Verified 05/24/25 15:33) GI upset HPI Comments Details: The patient is a 65 year woman apparently with a history of asthma in addition to connective tissue disease. Recently she was evaluated by Rheumatology and she was diagnosed with relapsing polychondritis. Mainly affecting the college of her ears. She has been on chronic dose of the prednisone higher and lower dosage is currently a baseline of 20 mg. She was recommended start methotrexate but she was concerned about the medication. I did encourage her to start the methotrexate. She can in consider starting at a lower dose 9 increasing in titrating up as tolerated. To the dose that she was recommended for her to take. The patient does have significant shortness of breath. She has been using Symbicort. She was also sent Trelegy but she has not been able to start as of yet because of a prior approval. The Symbicort is only partially helpful. Before that she had been on Nucala for her significant asthma but became very expensive and she could not tolerate the cost anymore. Her respiratory status is significantly worsen where she cannot do even activities of daily living due to shortness of breath. In the office we did go for brief walking oximetry. Quickly her oxygen decreased down to about 95% but more importantly a heart rate increased about 125 and she was visibly dyspneic we did dyspnea score of 6/10. The patient may have other pulmonary vascular conditions that may be impacting her respiratory status. The patient did have an echocardiogram with normal cardiac function which is reassuring however. I will going to go ahead and order blood work including a D-dimer to assess for pulmonary vascular conditions. In the meantime will going to optimize respiratory therapy by adding Incruse to her Symbicort. 07/28/2023 the patient is here for a pulmonary follow-up visit. She is been complaining of worsening year discomfort feels like a throbbing the left ear more than the right. Also having some discomfort in the larynx area. This has been going on for several days. She has been on the methotrexate. Unfortunately does not seem to be controlling the significant flare-ups from the relapsing polychondritis. We did review her imaging studies. She did have a CTA which was reassuring without any evidence of any active underlying paren chymal lung disease. No evidence of any thromboembolic disease. Patient's chest pain is overall better. Her breathing is also improved. She continues on the current respiratory therapy with good effect. She also has good adherence. Today because the significant polychondritis will provide her with Solu-Medrol intramuscularly and then the patient start prednisone. 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 12/02/2023 the patient is here for a pulmonary follow-up visit. She is still having difficulty with breathing. She has been Symbicort and Incruse. She is still requiring her rescue inhaler almost on a daily basis. She also has been on prednisone 10 mg daily. In part for her connective tissue disease. She has also been on methotrexate. The patient states that she had been on Nucala before and that was improving her allergies and her asthma symptoms significantly. Therefore she would like to see if we can have her go back on the Nucala at this time. Based on the fact that she is on chronic prednisone that is difficult to assess her eosinophils. The last time they were measuring her absolute count was 400 even on prednisone which is suggesting that is signif icantly much higher than that. Will try to submit for a prior approval for the Nucala at this time. In the meantime she did follow-up with Rheumatology and she will continue to follow closely regarding her connective tissue condition. She is having some chest discomfort but I did reassure her that it is primarily due to her cartilage inflammation. She does have a small pulmonary nodule that is unlikely to be symptomatic. She will need a repeat CT scan sometime in the summer of 2023. 04/27/2024 the patient is here for a pulmonary follow-up visit. The patient has been doing very well from a respiratory status. She started the Nucala injections and they have been very affecting beneficial. She does not have any significant wheezing or chest tightness and she started the injections. She has been able to back off on some of the Symbicort in the Incruse as well. Although she still struggling with her relapsing polychondritis. She has been the methotrexate. She lost the here and she is very upset about that. The patient also had to increase her prednisone up to 20 mg because she is struggling with her arthritic 80s and discomfort. She needs to follow-up closely with Rheumat ology. She would like to come off the methotrexate. Does discussion she needs to have with rheumatology at this time. No imaging studies at this time to review. The patient will continue with the Nucala injections at this time. 08/17/2024 the patient is here for a pulmonary follow-up visit. She has been struggling breathing. Having more wheezing. Moderate severity. Unfortunately she had to stop the Nucala because of the zaidi the cost was too much for her. She is also dealing closely Rheumatology and she is taking other biologic therapies for that and that causes her to have it more issues with her financial constraints. She is using her nebulizer. She is also using inhalers. She is also on 15 mg of prednisone. She feels like her polychondritis is acting up and also has wheezing and stridor on examination. Will go ahead and start her on budesonide with the hope that the budesonide can directly if help her with the upper airway involvement of the polychondritis and also help her with her asthma. She is going to be off the Nucala because of the cost. Will continue to optimize respiratory therapy. If she is no better she is going to come in for chest x-ray. She had a CT scan back in 04/22/2024 which I personally reviewed demonstrating mosaic pattern air trapping consistent with the asthma. She also has some thickening of the airways consistent with her polychondritis. 11/23/2024 the patient is here for pulmonary follow-up visit. Overall she is doing a lot better. Her methotrexate was stopped due to GI upset and she was placed on leflunomide. This new regimen has been very effective for her. She is not having the same adverse effects as she was having before. She feels like her polychondritis much better control. Her breathing also feels better. She has had significant weight loss in his been very affecting beneficial. She does complain of some pleuritic discomfort on the chest area and on the back area feels it is more of the scapula area. Seems to be more musculoskeletal as it is reproducible. Still though she is at risk for pleurisy and will go ahead and request a chest x-ray. She did have a CTA back in 2022 in her lung parenchyma looked okay although she did have some mosaic pattern from air trapping. 05/24/2025 the patient is here for a pulmonary follow-up visit. Overall she is doing a lot better. The medications have been helping her significantly. She would like to taper off the prednisone. She is already down to 7.5 mg prednisone. I will send her 1 mg tablets so she can decrease it by 0.5 every 2 weeks at least. She is going to be monitoring closely for any symptoms of adrenal insufficiency. Will check a cortisol level if she starts becoming symptomatic or if she is able to come off it completely. When she comes off it completely will go ahead and request a CT scan of the chest to address her pulmonary nodules in any evidence of any interstitial lung disease. She did have a chest x-ray done back in November 2024 demonstrating no acute disease although can not appreciate the pulmonary nodules based on a chest x-ray. With her significant weight loss she has improved dramatically her respiratory symptoms to the point that she is not requiring her inhalers that often. 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 Review of Systems Const Reports weight loss Eyes Reports no additional complaints ENT Reports change in voice, Denies hoarseness and Reports nose pain Card Denies chest pain, Denies dyspnea and Denies dyspnea on exertion Resp Reports cough, Denies pain on inspiration, Denies pain with cough, Denies dyspnea, Denies dyspnea on exertion and Denies wheezing Musc Reports arthralgias and Reports numbness Neuro Reports numbness Psych Reports abnormal sleep pattern Aller/Immun Denies wheezing Physical Exam Vital Signs: Last Vital Signs Pulse 91 05/24/25 15:27 BP 112/62 05/24/25 15:27 Pulse Ox 98 05/24/25 15:27 Oxygen Delivery Method Room Air 05/24/25 15:27 BMI result Body Mass Index 25.2 Const General: comfortable HEENT Head: Yes normocephalic Ears: external ear abnormal other (pain and swelling) Eyes General: appearance normal, both eyes and all related structures Neck Neck: Yes supple Chest Chest palpation & inspection: normal inspection of the chest Resp Effort & Inspection: normal respiratory effort and no stridor Auscultation: clear to auscultation bilaterally, no rales and no wheezes Cardio Rate: tachycardic Rhythm: regular rhythm Heart sounds: S1 normal heart sound present and S2 normal heart sound present GI Palpation (GI): Soft to palpation Skin General skin exam: no rashes or lesions noted Extrem General: No clubbing and No cyanosis Assessment & Plan Assessment & Plan (1) Relapsing polychondritis of multiple sites: Comment: dx 12/26 bilateral ear chondritis, costochondritis & seroneg RA Code(s): M94.1 - Relapsing polychondritis Category: Medical (2) Asthma: Code(s): J45.909 - Unspecified asthma, uncomplicated Category: Medical Qualifiers: Asthma complication type: uncomplicated Asthma persistence: persistent Asthma severity: moderate Qualified Code(s): J45.40 - Moderate persistent asthma, uncomplicated (3) Pulmonary nodule: Code(s): R91.1 - Solitary pulmonary nodule Category: Medical (4) Pleuritic chest pain: Comment: better Code(s): R07.81 - Pleurodynia Category: Medical Plan continue symbicort stopped Incruse Prednisone taper->15->7.5, will taper by .5mg to 0, then check cortisol levels and CT chest stopped Nucala due to cost CT chest 3 months F/U 4-5 months Orders: Orders Cortisol Random Today M94.1 - Relapsing polychondritis CT chest wo IV con 3 Months R91.1 - Solitary pulmonary nodule Medications: New prednisone 2 mg (2 x 1 mg) PO DAILY 60 tabs 4RF 30 days Coding Level of Care Code Est Pt Level 4 (75727) Complex EM visit Add On G2211 Diagnoses Relapsing polychondritis of multiple sites M94.1 Moderate persistent asthma without complication J45.40 Asthma complication type: uncomplicated Asthma persistence: persistent Asthma severity: moderate Pulmonary nodule R91.1 Pleuritic chest pain R07.81 Time Spent (min) 16
--- OUTSIDE RECORDS SUMMARY | 2025-05-24 16:18 | XMS_ITS | Clinical Summary ---
Author Organization 175 [facility] Address [address] [place] [address] Phone Care Team Providers Care Manager Fraud Name Role Phone Bertrand Christianson MD Primary Care Provider [phone] Allergies No known active allergies Medications albuterol [...] time each day. 20 tablet 4 Active Immunizations Name Administration Dates Next Due PPD Test 12/07/2024,01/15/2023,08/24/2021 ,07/22/2012,06/02/2007,09/16/2002 Surgical History Surgery Date Site/Laterality Comments OTHER SURGICAL HISTORY PROCEDURE: [place] LIG/TRNSXJ FLP TUBE ABDL/VAG APPR UNI/BI TONSILLECTOMY ADENOIDECTOMY, BILATERAL MYRINGOTOMY AND TUBES PROCEDURE: NE TONSILLECTOMY & ADENOIDECTOMY <AGE 12 Medical History Medical History Date Comments Anxiety state, unspecified 11/19/2006 DX:An xiety state, unspecified Allergic conjunctivitis of both eyes 12/03/2017 DX:Allergic conjunctivitis of both eyes; COMMENT: Cat and dog Asthma 06/04/2007 DX:Asthma Chronic back pain 10/31/2006 DX:Chronic jolene k pain; COMMENT: IMO update Depressive disorder 11/19/2006 DX:Depressiv e disorder; COMMENT: seeing kelsey moeller [address] [facility] ph [phone] Heart palpitations 12/03/2017 DX:Heart palp [...] 92 12/07/2024 1:33 PM EST Temperature 36.5 C (97.7 F) 12/07/2024 1:33 PM EST Respiratory Rate - - Oxygen Saturation 97% [...] Years (1 of 2 - PCV) 1979 Cervical Cancer Screening: P ap Smear 1981 Zoster Vaccines (1 of 2) 2010 RSV Immunization Adult Patients (1 - Risk 60-74 years 1-dose series) 2020 COVID-19 Vaccine (3 - Modern a risk series) 03/18/2022 02/18/2022, 01/21/2022 Cholesterol Screening (Lipid Panel) 10/02/2022 Colorectal Cancer Screening: Colonoscopy 10/02/2022 Hepatitis C Screening 10/02/2022 Osteoporosis Screening (Bone Density Screening) 10/02/2022 Social Influencers of Health Screening 10/02/2022 Depression Screening 11/03/2024 Falls Risk Assessment 2025 Influenza Vaccine (#1) 2025 HIB Vaccines Aged Out No longer eligi [...] age to complete this topic Meningococcal B Vaccine Aged Out No l onger eligible based on patient's age to complete this topic RSV Immunization Patients Under 20 months Aged Out No longer eligible b ased on patient's age to complete this topic Varicella Vaccines Aged Out No longer eligible based on patient's age to complete this topic [place] [address] Care Teams Manager Fraud Relationship Specialty Start Date End Date Bertrand Christianson MD [address] [place] [address] [address] [place] [address] PCP - General Internal Medicine 12/05/24
--- OUTSIDE RECORDS SUMMARY | 2025-05-24 16:18 | XMS_ITS ---
Author Name [facility] Organization Unknown Encounters Encounter Type Encounter Reason Primary Diagnosis Location Date Ambulatory [facility] 07/04/2023 Ambulatory [facility] 05/30/2023 Ambulatory [facility] 04/25/2023 Ambulatory [facility] 03/05/2023 Ambulatory [facility] 03/05/2023 Ambulatory [facility] 03/05/2023 Ambulatory [facility] 03/05/2023 Ambulatory [facility] 03/05/2023 Ambulatory [facility] 03/03/2023 Ambulatory [facility] 03/03/2023 Ambulatory [facility] 03/03/2023 Ambulatory [facility] 02/28/2023 Ambulatory [facility] [place] 02/28/2023 Ambulatory [facility] 02/28/2023 Ambulatory [facility] 02/28/2023 Care Team Organization Name Specialty Phone Email Start Date End Da joey [facility] DELMIS HINTON Primary Care 09/10/2022 06/21/20 24
--- OUTSIDE RECORDS SUMMARY | 2025-05-24 16:18 | XMS_ITS | Data Portability ---
Author Organization [place] [facility] [place] Address [address] [place] [address] Care Team Providers Care Import/Export Freight Forwarder Name Role Phone MARY JANE BENITES Primary Care Provider [phone] Assessment Encounter Date Assessment Date Assessment LastModified [...] findings at length with the patient today. We discussed the nature and etiology of this problem along with current treatment options. We discussed the expected course and outcomes and what to expect. We also discussed risks and benefits. All of their questions were answered today, and there was exhibited understanding and comprehension of all that was discussed. 10 minutes were spent reviewing previous imaging and charting. 10 minutes were spent obtaining patient history. 5 minutes were spent on physical exam. 5minutes were spent explaining diagnosis and assessment. Today's documentation was made using voice recognition software. This note may contain grammatical errors secondary to the software. [email or web address] Not available 03/06/2023 16:12:02 Plan of Treatment Reminders Order Date Submit Date Provider Last Modified By Organization Details Last Modified Time Details Appointments None recorded. Lab None recorded. Referral None recorded. Procedures None recorded. Surgeries None recorded. Imaging XR, knee, 1 or 2 view - Left Knee Pain [address] [place] [id number] [facility], [address], [place], [address], 3 09:31:12 XR, knee, 1 or 2 view - Right Knee Pain [address] [place] [address] [facility], [address], [place], [address], 3 09:31:12 XR, knee, weightbeari ng - Bilateral Knee Pain 2022 [address] [place] [address] [facility], [address], [place], [address], 3 09:31:12 Medication Orders Kenalog 40 mg/mL suspension for injection [address] [place] [address] [id number], [phone] [place], [address], 3 16:15:52 lidocaine (PF) 10 mg/mL (1 %) injection solution [address] [place] [address] [id number], [phone] [place], [address], 16:15:52 Kenalog 40 mg/mL suspension for injection 2022 023 [email or web address] Not available 12:38:24 lidocaine (PF) 10 mg/mL (1 %) injection solution 2022 023 [email or web address] Not available 12:38:24 Patient TargetsNo targets recorded. Patient InstructionsNo instructions recorded. Reason for Referral None Reported. Problems Name Problem SNOMED Code Status Onset Date Resolution Date Notes Provider Name and Address Organization Details Recorded Time Osteoarthri tis of right knee joint 4518816254642 00 Active 2022 JEANNA MCDONOUGH PA-C [address], [place], [address], [place] [facility] 16:12:10 Osteoarthri tis of left knee joint 6953190671383 09 Active 2022 JEANNA MCDONOUGH PA-C [address], [place], [address], [place] [facility] 3 16:12:15 Pain of bilateral knee joints 1625685075381 04 Active 2022 JEANNA MCDONOUGH PA-C [address], [place], [address], [place] [facility] 3 08:20:44 Problem Notes None recorded. Procedures Surgical History Date Name Laterality Status Provider Name and Address Organization Details Recorded Time 05/28/2023 Knee Joint/Burs a Asp & Inj cancelled JEANNA MCDONOUGH PA-C [address], [place], [address], [place] [facility] 05/28/2023 08:21:07 03/05/2023 Knee Joint/Burs a Asp & Inj completed JEANNA MCDONOUGH PA-C [address], [place], [address], [place] [facility] 03/06/2023 16:14:28 Imaging Results None recorded. [...] active Not Available Not Available Not Available BrezHaierphere 160 mcg-9mcg-4.8 mcg/actuatio n HFA aerosol inhaler INHALE 2 PUFFS INTO THE LUNGS TWICE A DAY active Not Available Not Available Not Available Vitals Date Recorded Body weight Body mass index (BMI) Body height Provider Name and Address Organization Details Last Updated DateTime 03/05/2023 973405.28 g 41.2 kg/m2 157.[address] [place] [facility], 03/05/2023 15:02:52 Social History None recorded. Functional Status Question Answer Note LastModified by Organizat ion Details LastModified Time Do you use any illicit or recreational drugs? No Information not available 03/05/2023 What is your level of alcohol consumption? None Information not available 03/05/2023 Mental Status None recorded. Family History Relationship [...] Code Diagnosis ICD10 Code Diagnosis Note 8304 MARNI STANLEY [facility] [address] [address] 03/05/2023 14:39:35 03/05/2023 15:34:21 Pain of bilateral knee joints 3371837251 41090 M25.561 M25.562 Osteoarthr itis of right knee joint 6357783540 15686 M17.11 Osteoarthr itis of left knee joint 7721542238 45735 M17.12 Health Concerns Section Related Observation LastModified by Organization Detai ls LastModified Time None Recorded Concern Status LastModified by Organization Details LastModified Time None Recorded Advance Directives Directive None Recorded Payers Insurance Date Sequence Insurance Name Policy Number Policy Brice Covered Member ID Brice Member ID Guarantor Name 02/28/2023 1 [place] (O) [id number] Ryne Grant [id number] Ryne Grant Notes Date Note Type [...] anybody formally for her knees. She takes mplu-rhr-wwutrhf pain medication which gives her some relief. She describes her pain is medial nature that is worse with weightbearing, bending and certain movements. She denies any history of rheumatoid arthritis, gout, Lyme disease. She also denies any history of knee joint infections. JEANNA MCDONOUGH PA-C [address] [place] [address], [address], [place] [facility] 03/06/2023 16:15:55 OBGyn Episode No OBEpisode recorded.
--- OUTSIDE RECORDS SUMMARY | 2025-05-24 16:18 | XMS_ITS | Patient Health Record ---
Author Organization [facility] Address [address] [place] [address] Care Team Providers Care Metal Technician Name Role Phone TATI STEVENS Primary Care Provider Allergies No Known Allergies Reason For Referral [...] MG 1 capsule Orally Onc e a day; Duration: 30 days 06/27/2023 Active predniSONE 20 MG [...] Status Risk Notes Problem Morbid obesity (disorder) (093986542) Morbid (severe) obesity due to excess calories (E66.01) Active confirmed Problem Obesity due to excess calories (150962356) Other obesity due to excess calories (E66.09) Active confirmed Problem Uncomplicated moderate persistent asthma (486948850) Moderate persistent asthma, uncomplicated (J45.40) Active confirmed Plan Of Treatment No Information Insurance Providers Payer Name Payer Address Payer Phone Subscriber Number Group Number Insured Name Patient Relationship to Insured Coverage Start Date Coverage End Date [facility] [id number] [place] [address] [id number] Ryne Grant Self - patient is the insured Medical (General) History Medical History History ICD Code moderate, persistent asthma, Dr. Evie reveles osteoarthritis of bilateral knee joints, Dr. Gilbert SAMIRA Surgical History Surgery Date(Month/Year) tubal ligation
== END 2025-05-24 15:53 | disposition home or self-care (01) ==
LOC: HO.HPS 15:25
PROVIDERS: PCP Internal Medicine; Visit Provider Hospitalist
DX: M94.1 Relapsing polychondritis (principal); J45.40 Moderate persistent asthma, uncomplicated; R91.1 Solitary pulmonary nodule; R07.81 Pleurodynia
CPT/HCPCS: 99214

== ENCOUNTER 2025-06-22 15:22 | Outpatient (AMB) | payer BC, SELFPAY ==
--- NOTE | 2025-06-22 15:25 | A.OFFVIS_ITS ---
Vital Signs 06/22/25 15:27 Height 5 ft 2 in Weight 138 lb 14.259 oz BMI 25.4 BP 114/70 Blood Pressure Location Lt brachial Position Sitting Pulse 80 Pulse Source Pulse Oximeter Pulse Oximetry (%) 95 Oxygen Delivery Method Room Air Intake Visit Reasons: follow up Intake Note: Patient presents for RA follow up, not sleeping well. She would like refill of Trazadone. Allergies methotrexate Adverse Reaction (Intermediate, Verified 06/22/25 15:33) GI upset Medication List - Last Reconciled 06/22/25 by Srea Kincaid MD acetaminophen (Tylenol) 650 mg PO Q4H PRN albuterol sulfate 90 mcg/actuation (ProAir HFA) 2 puffs inhalation Q6H PRN albuterol sulfate 2.5 mg inhalation Q4-6H PRN budesonide 0.5 mg (2 mL) inhalation BID 30 days zmuqksorzy-wivwubne-eskvgflggj 160-9-4.8 mcg/actuation (Breztri Aerosphere) 2 inhalations inhalation BID epinephrine (EpiPen) 0.3 mg IM Q4H PRN fluticasone propionate 50 mcg/actuation 1 spray intranasal BID leflunomide 20 mg PO DAILY montelukast (Singulair) 10 mg PO DAILY 90 days nebulizers As directed prednisone 2 mg (2 x 1 mg) PO DAILY 30 days prednisone 5 mg PO DAILY tirzepatide 15 mg subcut QWEEK trazodone 50 mg PO BEDTIME PRN HPI Comments Details: Patient is a 65-year-old female with seronegative rheumatoid arthritis and relapsing polychondritis here today for follow up Interval History: Patient last seen 01/11/25 with me - On leflunomide 20mg and prednsione 7.5mg daily - Unable to taper to 5mg because her asthma would flare so she is currently on 7.5mg - Complains of painful nodules on her legs and continued inflammation involving her ears and trachea - Started dapsone 25mg bid for relapsing polychondritis Today - Stopped dapsone due to hemolytic anemia and not effective - Trying to decrease her prednisone but noting worsening sx Rheumatologic History: Seronegative rheumatoid arthritis -ve RF -ve CCP dx 12/2022 MTX started 04/2023 DC 05/2024 ineffective and caused hair loss and significant GI upset Leflunomide started 08/2024 effective Relapsing polychondritis dx 12/26 bilateral ear chondritis, costochondritis & seroneg RA Current Rheumatology Medication(s): Leflunomide 20 mg daily Prednisone 5 mg daily PFS Medical History Pulmonary nodule Tachycardia 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 Chronic back pain Heart palpitations SAMIRA (obstructive sleep apnea) GERD (gastroesophageal reflux disease) Obesity Asthma Surgical History H/O tubal ligation Family History Mother Diabetes Rheumatoid arthritis Father Asthma Social History Household Members: Children Alcohol intake: never Patient Tobacco Use Status: Former Tobacco user Current occupational status: employed 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 Review of Systems Const Details: Review of Systems Constitutional: Denies fever, chills, weight loss ENT: Denies vision changes, eye pain or eye redness, dental caries, dry mouth GI: Denies nausea, vomiting, diarrhea, abdominal pain, change in BM Pulm: Denies SOB, OROZCO, hemoptysis, wheezing Cards: Denies chest pain, palpitations Skin: Denies Raynaud's, rash, nail changes, photosensitivity, LAWNMOWER REPAIR MECHANIC: Denies headaches, weakness, paresthesias, recurrent falls MSK: as per HPI All other systems reviewed and are unremarkable except noted above Physical Exam Exam Exam: Vital signs reviewed Physical Examination CONSTITUITIONAL Patient alert and cooperative. Well appearing and in no apparent painful distress HEENT Conjunctiva and sclera clear. No lymphadenopathy. No swelling noted to the ear MSK Hands * Right Hand: Able to make a fist. No swelling noted. TTP of the MCPs and PIPs * Left Hand: Able to make a fist. No swelling noted. TTP of the MCPs and PIPs Wrists * Right Wrist: Full ROM. 70 degrees of wrist flexion, 80 degrees of wrist extension. No swelling but TTP noted * Left Wrist: Full ROM. 70 degrees of wrist flexion, 80 degrees of wrist extension. No swelling but TTP noted Elbows * Right Elbow: Full ROM. No swelling or TTP. No TTP of the medial and lateral epicondyles * Left Elbow: Full ROM. No swelling or TTP. No TTP of the medial and lateral epicondyles Shoulders * Right shoulder: Full ROM. No swelling noted. No TTP of the AC joint, subacromial bursa or posterior shoulder * Left shoulder: Full ROM. No swelling noted. No TTP of the AC joint, subacromial bursa or posterior shoulder Knees * Right knee: Full ROM. No swelling noted. No TTP of the knee joint lie or pes anserine bursa * Left knee: Full ROM. No swelling noted. No TTP of the knee joint lie or pes anserine bursa. Ankles * Right ankle: Good ankle dorsiflexion and plantar flexion. No swelling. No TTP of the ankle joint * Left ankle: Good ankle dorsiflexion and plantar flexion. No swelling. No TTP of the ankle joint Feet * Right foot: Negative squeeze test * Left foot: Negative squeeze test Tender points? * No tenderness to palpation of the bilateral trapezius, supraspinatus, anterior costochondral junctions, bilateral suboccipital muscle insertions SKIN No rashes Vital Signs: Last Vital Signs Pulse 80 06/22/25 15:27 BP 114/70 06/22/25 15:27 Pulse Ox 95 06/22/25 15:27 Oxygen Delivery Method Room Air 06/22/25 15:27 BMI result Body Mass Index 25.4 Results Reviewed Results Reviewed: Laboratory Tests 05/24/25 16:05 WBC 7.5 RBC 3.33 L Hgb 10.6 L Hct 32.2 L Plt Count 212 ESR 14 Sodium 140 Potassium 3.7 Chloride 108 Carbon Dioxide 26 BUN 19 H Creatinine 0.80 AST 21 ALT 15 C-Reactive Protein 0.16 Assessment & Plan Assessment & Plan (1) Seronegative rheumatoid arthritis: Comment: -ve RF -ve CCP dx 12/2022 MTX started 04/2023 DC 05/2024 ineffective and caused hair loss and significant GI upset Leflunomide started 08/2024 effective Code(s): M06.00 - Rheumatoid arthritis without rheumatoid factor, unspecified site Category: Medical Plan: #Seronegative RA Patient is a 64-year-old female with relapsing polychondritis complicated by bilateral ear chondritis and seronegative rheumatoid arthritis returns for follow-up. Still with evidence of inflammation on examination. Also with erythema nodusum which can be seen in patients with RP Had hemolytic anemia in the setting of dapsone use, had to be stopped Continues to have persistent synovitis and polychondritis symptoms. Plan - Leflunomide 20mg daily - Prednisone 5mg daily - Humira 40mg SC every 2 weeks - Trazadone 100mg PO bedtime for sleep per patient request - Labs today: CBC - RTC 4 months - Labs before visit: CBC, CMP, ESR, CRP (2) Relapsing polychondritis of multiple sites: Comment: dx 12/26 bilateral ear chondritis, costochondritis & seroneg RA Code(s): M94.1 - Relapsing polychondritis Category: Medical Plan: #Relapsing polychondritis Currently not in remission Adding Humira (3) Encounter for monitoring leflunomide therapy: Code(s): Z51.81 - Encounter for therapeutic drug level monitoring; Z79.69 - intermodal customer service (current) use of other immunomodulators and immunosuppressants Plan: #Long-term leflunomide Discussed with patient the benefits and risks of leflunomide for managing the rheumatic condition Benefits include: - Reduced pain, maintenance of remission and reduction of flares Risks include: - GI upset especially diarrhea, skin rash, cytopenias, hepatotoxicity, weight loss, neuropathy Leflunomide is highly teratogenic. ?Has a very long half-life. ?Needs cholestyramine washout if there is desire for Initiation: ?CBC, BMP, LFTs, hepatitis-B and C serologies every 2-4 weeks for 3 months Monitoring: ?CBC, BMP, LFTs, hepatitis B and C serologies (4) Encounter for monitoring of adalimumab therapy: Code(s): Z51.81 - Encounter for therapeutic drug level monitoring; Z79.620 - long-term (current) use of immunosuppressive biologic Plan: #Long-term Use of TNF Inhibitors: Humira Discussed with the patient the benefits and risks of TNF inhibitors for the management of the rheumatic condition Benefits include reduce pain, maintenance of remission and reduction of flares as well as progression of the disease Risks include injection sites/infusion reactions, serious infections (such as bacterial infections, opportunistic infections), malignancy, delaminating syndromes, autoimmune phenomena, CHF exacerbations, palmar plantar psoriasis and cytopenias Recommended rotating injection sites, and holding medication during and for up to 1 week after resolution of a febrile illness or open skin wound Plan I spent 35 minutes reviewing the record and labs, taking a history, examining the patient, discussing the treatment plan and documenting in the medical record Orders: Orders Complete Blood Count Auto Diff 4 Months Z. - Other predatory animal exterminator (current) drug therapy Comprehensive Met. Panel 4 Months Z - Other predatory animal exterminator (current) drug therapy C Reactive Protein 4 Months Z. - Other predatory animal exterminator (current) drug therapy Erythrocyte Sedimentation Rate 4 Months Z. - Other halfway (current) drug therapy Hepatitis B,C Profile 4 Months Z. - Other predatory animal exterminator (current) drug therapy T Spot TB 4 Months Z. - Other halfway (current) drug therapy Medications: New adalimumab (Humira(CF) Pen) 40 mg subcutaneously; 2 ea 5RF M06.00 - Rheumatoid arthritis without rheumatoid factor, unspecified site, M94.1 - Relapsing polychondritis Changed From prednisone 7.5 mg (3 x 2.5 mg) PO DAILY 90 tabs 0RF To prednisone 5 mg PO DAILY From trazodone 50 mg PO BEDTIME PRN 90 tabs 1RF sleep G47.00 - Insomnia, unspecified To trazodone 100 mg (2 x 50 mg) PO BEDTIME PRN 60 tabs 4RF sleep G47.00 - Insomnia, unspecified Discontinued prednisone Discontinued Reason: Doctor's Order 2 mg (2 x 1 mg) PO DAILY 30 days 60 tabs 4RF Coding Level of Care Code Est Pt Level 4 (06041) Complex EM visit Add On G2211 Diagnoses Seronegative rheumatoid arthritis M06.00 Relapsing polychondritis of multiple sites M94.1 Encounter for monitoring leflunomide therapy Z51.81; Z79.69 Encounter for monitoring of adalimumab therapy Z51.81; Z79.620
[2025-06-22 15:27] VITALS: BP 114/70; PULSE 80; O2SAT 95; BMI 25.4
--- OUTSIDE RECORDS SUMMARY | 2025-06-22 16:16 | XMS_ITS | Patient Health Record ---
Author Organization [employer] [facility] Address [address] [place] [address] Care Team Providers Care Internal Grinding Machine Operator Name Role Phone TATI STEVENS [...] Status W/U Status Risk Notes Problem Morbid (severe) obesity due to excess calories (E66.01) Active confirmed Problem Obesity due to excess calories (264072670) Other obesity due to excess calories (E66.09) Active confirmed Problem Uncomplicated moderate persistent asthma (754541200) Moderate persistent asthma, uncomplicated (J45.40) Active confirmed Plan Of Treatment No Information Insurance Providers Payer Name Payer Address Payer Phone Subscriber Number Group Number Insured Name Patient Relationship to Insured Coverage Start Date Coverage End Date [facility] [id number] [place] [address] [id number] Ryne Grant Self - patient is the insured Medical (General) History Medical History History ICD Code moderate, persistent asthma, Dr. Evie reveles osteoarthritis of bilateral knee joints, Dr. Gilbert SAMIRA Surgical History Surgery Date(Month/Year) tubal ligation
--- OUTSIDE RECORDS SUMMARY | 2025-06-22 16:16 | XMS_ITS | Encounter Summary ---
Author Organization [facility] Address [address] [place] [address] Care Team Providers Care Press Setup Operator Name Role Phone Bertrand Christianson MD Primary Care Provider [phone] Reason for Visit * Reason Onset Date Comments Labwork 06/09/2025 Low hemoglobin Encounter Details Date Type Department Care Team (Late st Contact Info) Description 06/09/2025 Telephone Internal Medicine - [place] [address] [place] [id number] Bertrand Christianson MD [address] [place] [address] Labwork (Low hemoglobin) Social History Tobacco Use Types Packs/Day Years [...] as of this encounter Progress Notes * Lo Booker MA - 06/10/2025 10:58 AM EDT Spoke to patient and schedule an appt with Dr Christianson on 06/14/2025 at 3:30pm * Juli Morfin - 06/09/2025 2:24 PM EDT Pt got bloodwork done at [facility] lab and they said to call her PCP because her hemoglobin is low. Called [facility] lab, the results are: Hemoglobin 10.6 Hematic Rate 32.2 They are faxing these results done on 05/24/25 ordered by her swift tender Sera Kincaid. Pt also can't bear weight on her left foot, this started today when she woke up. Please advise? [phone] documented in this encounter Plan of Treatment Not on file documented as of this encounter Visit Diagnoses Not on filedocumented in this encounter Care Teams Press Setup Operator Relationship Specialty Start Date End Date Bertrand Christianson MD [address] [address] PCP - General Internal Medicine 12/05/24 documented as of this encounter
== END 2025-06-22 16:16 | disposition home or self-care (01) ==
LOC: HO.RHES 15:23
PROVIDERS: PCP Internal Medicine; Visit Provider Student in an Organized Health Care Education/Training Program
DX: M06.00 Rheumatoid arthritis without rheumatoid factor, unspecified site (principal); M94.1 Relapsing polychondritis; Z51.81 Encounter for therapeutic drug level monitoring; Z79.69 Long term (current) use of other immunomodulators and immunosuppressants; Z79.620 Long term (current) use of immunosuppressive biologic
CPT/HCPCS: 99214

== ENCOUNTER 2025-10-13 17:33 | Emergency (ER) | payer BC, SELFPAY ==
--- NOTE | ~2025-10-13 | XR_ITS ---
CLINICAL HISTORY: SOB, cough 2 view chest x-ray Comparison: None provided Findings: No consolidation or effusion. No pneumothorax, accounting for skin folds. Cardiac silhouette and mediastinal contours are at the upper limits of normal. Degenerative changes include imaged shoulders, AC joints, and spine. Mild/minimal vertebral height losses are age indeterminate by radiographs. Schmorl's nodes are multifocal. IMPRESSION: No consolidation. This document has been electronically signed by: Oscar Ordaz MD on 10/13/2025 19:01:35
[2025-10-13 18:01] VITALS: BP 150/108; PULSE 107; RESP 18; TEMP 36.8; O2SAT 95; BMI 24.8
--- NOTE | 2025-10-13 18:01 | ED.SOB ---
HPI - SOB/Dyspnea General Chief Complaint: Asthma Stated Complaint: Asthma Time Seen by Provider: 10/13/25 19:00 History of Present Illness ED Provider: Jean NORTON Narrative: The patient is a 65-year-old woman with a history of asthma. She finished a prednisone taper a week or 2 ago. She has had worsening symptoms over the last few days. Today she called her design/animation instructor and was advised to come to the emergency room. She thinks that she has had a fever during the past couple of days. She has been coughing a lot. Related Data Home Medications ?Medication ?Instructions ?Recorded ?Confirmed acetaminophen 325 mg tablet 650 mg PO Q4H PRN 12/11/22 06/22/25 (Tylenol) albuterol sulfate 2.5 mg/3 mL 2.5 mg inhalation Q4-6H PRN 12/11/22 06/22/25 (0.083 %) solution for nebulization epinephrine 0.3 mg/0.3 mL 0.3 mg IM Q4H PRN 12/11/22 06/22/25 injection, auto-injector (EpiPen) budesonide 160 mcg-glycopyr 9 2 inh inhalation BID 12/12/22 06/22/25 mcg-formot 4.8 mcg/actuation HFA inhaler (Breztri Aerosphere) nebulizers 04/29/23 06/22/25 prednisone 2.5 mg tablet 5 mg PO DAILY 06/22/25 06/22/25 tirzepatide 7.5 mg/0.5 mL 15 mg subcut QWEEK 06/22/25 06/22/25 subcutaneous pen injector Previous Rx's ?Medication ?Instructions ?Recorded fluticasone propionate 50 1 spray intranasal BID #16 grams 01/01/24 mcg/actuation nasal spray,suspension budesonide 0.5 mg/2 mL suspension 0.5 mg (2 mL) inhalation BID 30 08/17/24 for nebulization days #120 mL montelukast 10 mg tablet 10 mg PO DAILY 90 days #90 tabs 08/17/24 (Singulair) leflunomide 20 mg tablet 20 mg PO DAILY #90 tabs 05/26/25 adalimumab-bwwd 40 mg/0.4 mL 40 mg (0.4 mL) subcut .every 2 06/30/25 subcutaneous auto-injector weeks #0.8 mL (Hadlima(CF) PushTouch) albuterol sulfate 90 mcg/actuation 2 puff inhalation Q6H PRN 09/08/25 aerosol inhaler (ProAir HFA) shortness of breath or wheezing 30 days #8.5 grams prednisone 20 mg tablet See Rx Instructions PO DAILY 10 09/08/25 days #15 tabs trazodone 50 mg tablet 100 mg (2 x 50 mg) PO BEDTIME PRN 09/16/25 for insomnia #180 tabs doxycycline monohydrate 100 mg 100 mg PO BID #14 caps 10/13/25 capsule prednisone 20 mg tablet 20 mg PO DAILY #12 tabs 10/13/25 Allergies Allergy/AdvReac Type Severity Reaction Status Date / Time methotrexate AdvReac Intermediate GI upset Verified 10/13/25 18:02 Review of Systems Review of Systems: Yes all other systems are reviewed and are negative [facility] Past Medical History Medical History Pulmonary nodule 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 Chronic back pain Heart palpitations SAMIRA (obstructive sleep apnea) GERD (gastroesophageal reflux disease) Obesity Asthma Surgical History H/O tubal ligation Family History Family History Mother Diabetes Rheumatoid arthritis Father Asthma Social History Social History Household Members: Children Alcohol intake: never Patient Tobacco Use Status: Former Tobacco user Advance Directives: No Advance Directives Information Provided: No Current occupational status: employed 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 She said she was feeling much better but still looked mildly short of breath. She was awake and alert with a normal mental status and did not seem in overt distress or toxic. Orientation/consciousness: patient oriented x3 HEENT: Other: The face is symmetrical. ?Mucous membranes moist. Eyes: Other: Pupils are round equal, conjunctivae are clear, extraocular movements intact Neck: Neck: Yes normal visual inspection, Yes full ROM and Yes no JVD Resp: Other: There was some very minimal increased work of breathing. The patient had inspiratory and expiratory wheezes with a very musical breath sounds. Breath sounds were symmetrical and equal. Cardio: Rate: tachycardic Rhythm: regular rhythm Heart sounds: S1 normal heart sound present and S2 normal heart sound present Skin: Other: The skin is dry and unremarkable Neuro: General: patient oriented x3, tone normal, moves all extremities, no focal motor deficits and CN's II-XI intact bilaterally Extrem: Other: There is no calf swelling or tenderness. No asymmetry. No peripheral edema. Course Course Course Narrative: This is an RME: Additional HPI, ROS, PE not included below will be deferred to primary provider. RME assessment and note performed by: Susan New PA-C This is a 65 y/o F here with concens of SOB which started in September. Pt seees Dr. Kuhn, from pulm. Recently on prednisone, no longer on this, has had no improvement. Lungs with inspiratory and expiratory wheezes throughout. Plan: labs, cxr, ed bronch protocol, viral swabs Medications Administered Discontinued Medications Generic Name Dose Route Start Last Admin Trade Name Freq PRN Reason Stop Dose Admin Acetaminophen 975 mg 10/13/25 20:42 10/13/25 21:37 Acetaminophen 325 Mg Tablet PO 10/13/25 20:43 975 mg ONCE ONE Administration Albuterol/Ipratropium 3 ml 10/13/25 19:38 10/13/25 19:43 Albuterol/Iprat 2.5/0.5mg 3 Ml Ampul.Neb INHALE 10/13/25 19:39 Not Given ONCE ONE Albuterol Sulfate 2.5 mg/ 0 mg 10/13/25 18:46 10/13/25 18:53 Albuterol/Ipratropium 3 ml INHALE 10/13/25 18:47 5 dose ONCE ONE Administration Doxycycline Monohydrate 100 mg 10/13/25 19:32 10/13/25 19:54 Doxycycline Monohydrate 100 Mg Capsule PO 10/13/25 19:33 100 mg ONCE ONE Administration Prednisone 60 mg 10/13/25 19:31 10/13/25 19:54 Prednisone 20 Mg Tablet PO 10/13/25 19:32 60 mg ONCE ONE Administration Medical Decision Making Medical Decision Making [facility] Narrative: The patient is a 65-year-old woman with a long history of asthma who has been off prednisone recently. She has been short of breath for a few days and she has also felt chilled and possibly may have had some fevers at home she says. On her exam she clearly has abnormal breath sounds consistent with an asthma exacerbation, her breath sounds are very musically wheezy. She has a clear chest x-ray. She has blood work that shows a white blood count of 9.3. On her differential she has 63% neutrophils and 20% lymphocytes. Somewhat surprisingly given her clinical appearance and given her CBC results her C-reactive protein is fairly high at 12.05. Serologies negative for influenza, RSV, and COVID. Clinically the patient did not look as if she was ill enough to require hospitalization and so she was given oral prednisone and oral doxycycline in addition to several bronchodilator treatments. She seemed to improve and seems to feel as if she will be well enough for discharge home. I have sent prescriptions for doxycycline and prednisone to her pharmacy. She should stay in touch with the design/animation instructor for additional advice as needed. She should return to the emergency room if significantly worse. Lab Data 10/13/25 18:19 10/13/25 18:19 Labs: Lab Results 10/13/25 Range/Units 18:19 WBC 9.3 (4.8-10.8) X10*3/uL RBC 3.52 L (4.20-5.50) X10*6/uL Hgb 11.0 L (12.0-16.0) g/dl Hct 33.3 L (37.0-47.0) % MCV 94.6 (80.0-98.0) fL MCH 31.3 (27.0-33.0) pg MCHC 33.0 (31.0-35.0) g/dl RDW 13.2 (11.0-16.0) % Plt Count 262 (160-400) X10*3/uL MPV 11.2 (9.4-12.3) fL Immature Gran % (Auto) 0.4 (0.0-0.4) % Neut % (Auto) 63.2 (45-73) % Lymph % (Auto) 19.7 L (20-40) % Rapides % (Auto) 8.5 (2-11) % Eos % (Auto) 7.4 H (0-4) % Baso % (Auto) 0.8 (0-2) % Lymph # (Auto) 1.8 (1.2-4.9) X10*3/uL Rapides # (Auto) 0.8 (0.1-1.2) X10*3/uL Eos # (Auto) 0.7 H (0.0-0.4) X10*3/uL Baso # (Auto) 0.1 (0.0-0.2) X10*3/uL Abs Immat Gran (auto) 0.04 H (0.00-0.03) X10*3/uL Absolute Neuts (auto) 5.9 (2.0-8.3) x10*3/uL Absolute Nucleated RBC 0.000 (0.0-0.012) X10*3/uL Nucleated RBC % (auto) 0.0 (0.0-0.2) /100WBC Sodium 140 (135-145) mmol/L Potassium 3.4 (3.3-5.1) mmol/L Chloride 108 (96-108) mmol/L Carbon Dioxide 25 (22-29) mmol/L Anion Gap 10 L (12-20) BUN 19 H (9-16) mg/dL Creatinine 0.74 (0.5-1.4) mg/dL Estim Creat Clear Calc 65.3 Estimated GFR > 60 Random Glucose 106 (60-115) mg/dL Calcium 8.9 (8.4-10.2) mg/dL Total Bilirubin 0.2 (0.0-1.0) mg/dL Direct Bilirubin < 0.2 (0.0-0.5) mg/dL AST 30 (5-31) U/L ALT 22 (0-31) U/L Alkaline Phosphatase 104 (39-117) U/L Troponin I High Sens 6.0 (<3.5-17.0) ng/L C-Reactive Protein 12.05 H (< or = 0.50) mg/dL Total Protein 7.0 (6.5-8.0) g/dL Albumin 3.8 (3.5-5.0) g/dL Influenza Type A (PCR) NEGATIVE (Negative) Influenza Type B (PCR) NEGATIVE (Negative) RSV RNA Qual (PCR) NEGATIVE (Negative) SARS-CoV-2 RNA (RT-PCR) NEGATIVE (Negative) Discharge Plan Discharge Clinical Impression: Asthma exacerbation Patient Disposition: Home, Self-Care Instructions: Asthma (ED) Additional Instructions: You were started on another course of prednisone today. Additional prednisone has been sent to your pharmacy. Take this medication once a day as prescribed. You were also started on the antibiotic doxycycline. A prescription for this antibiotic has been sent to your pharmacy also. Please take this medication 2 times a day, approximately every 12 hours. Please use your nebulizer machine at home every 4 hours as needed. Your chest x-ray was clear on your blood work is also reassuring. Please contact your design/animation instructor tomorrow to check in. Return to the emergency room if significantly worse. Prescriptions: New prednisone 20 mg tablet 20 mg PO DAILY Qty: 12 0RF Rx Instructions: Take 3 tablets by mouth daily for 2 days then take 2 tablets by mouth daily for 3 days. doxycycline monohydrate 100 mg capsule 100 mg PO BID Qty: 14 0RF No Action leflunomide 20 mg tablet 20 mg PO DAILY Qty: 90 1RF Hadlima(CF) PushTouch 40 mg/0.4 mL auto-injector 40 mg subcut .every 2 weeks Qty: 0.8 5RF prednisone 20 mg tablet See Rx Instructions PO DAILY 10 Days Qty: 15 0RF Rx Instructions: PO daily; Take 2 tabs daily x 5 days, then 1 tablet daily x 5 days albuterol sulfate [ProAir HFA] 90 mcg/actuation HFA aerosol inhaler 2 puff inhalation Q6H PRN (Reason: shortness of breath or wheezing) 30 Days Qty: 8.5 5RF trazodone 50 mg tablet 100 mg PO BEDTIME PRN (Reason: for insomnia) Qty: 180 1RF albuterol sulfate 2.5 mg /3 mL (0.083 %) solution for nebulization 2.5 mg inhalation Q4-6H PRN epinephrine [EpiPen] 0.3 mg/0.3 mL auto-injector 0.3 mg IM Q4H PRN acetaminophen [Tylenol] 325 mg tablet 650 mg PO Q4H PRN Breztri Aerosphere 160-9-4.8 mcg/actuation HFA aerosol inhaler 2 inh inhalation BID fluticasone propionate 50 mcg/actuation spray,suspension 1 spray intranasal BID Qty: 16 0RF Rx Instructions: administer into each nostril montelukast [Singulair] 10 mg tablet 10 mg PO DAILY 90 Days Qty: 90 3RF budesonide 0.5 mg/2 mL suspension for nebulization 0.5 mg inhalation BID 30 Days Qty: 120 11RF prednisone 2.5 mg tablet 5 mg PO DAILY (DME) nebulizers Misc See Rx Instructions .Route Rx Instructions: As directed tirzepatide 7.5 mg/0.5 mL pen injector 15 mg subcut QWEEK Referrals: Bertrand Christianson MD [Primary Care Provider, Internal Medicine] Doroteo Kuhn MD [Physician, Pulmonology] Stand Alone Forms: Work/School Release Interventions: ED Discharge Assessment Last Done: 10/13/25 21:42 Discharge Date/Time: 10/13/25 21:42 Print Language: Bahamian
--- NOTE | 2025-10-13 18:05 | ECG_ITS ---
Test Reason : dyspnea Blood Pressure : */* mmHG Vent. Rate : 96 BPM Atrial Rate : 96 BPM P-R Int : 146 ms QRS Dur : 72 ms QT Int : 342 ms P-R-T Axes : 55 -10 71 degrees QTcB Int : 432 ms Poor data quality, interpretation may be adversely affected Normal sinus rhythm Normal ECG When compared with ECG of 13-May-2023 11:40, No significant change was found Referred By: Susan New Electronically Signed By: LAWRENCE VALENZUELA MD
[2025-10-13 18:28] LABS: MANUAL DIFF FLAG NO
[2025-10-13 18:32] LABS: Hematocrit 33.3 % (37.0-47.0); Hemoglobin 11.0 g/dl (12.0-16.0); Imm Gran Abs Auto 0.04 X10*3/uL (0.00-0.03); Imm Gran Pct Auto 0.4 % (0.0-0.4); Lymphocytes Absolute Auto 1.8 X10*3/uL (1.2-4.9); Mean Corpuscular HGB Conc 33.0 g/dl (31.0-35.0); Mean Corpuscular Hemoglobin 31.3 pg (27.0-33.0); Mean Corpuscular Volume 94.6 fL (80.0-98.0); NRBC Abs Auto 0.000 X10*3/uL (0.0-0.012); NRBC Pct Auto 0.0 /100WBC (0.0-0.2); Platelet Count 262 X10*3/uL (160-400); Red Blood Count 3.52 X10*6/uL (4.20-5.50); White Blood Count 9.3 X10*3/uL (4.8-10.8)
[2025-10-13 18:45] LABS: Alanine Aminotransferase 22 U/L (0-31); Albumin Level 3.8 g/dL (3.5-5.0); Alkaline Phosphatase 104 U/L (39-117); Anion Gap 10 (12-20); Aspartate Amino Transferase 30 U/L (5-31); Blood Urea Nitrogen 19 mg/dL (9-16); Calcium 8.9 mg/dL (8.4-10.2); Carbon Dioxide 25 mmol/L (22-29); Chloride 108 mmol/L (96-108); Creatinine Clr Calc Pharmacy 65.3; Estimated Glomerular Filt Rate > 60; Potassium 3.4 mmol/L (3.3-5.1); Sodium 140 mmol/L (135-145); Total Protein 7.0 g/dL (6.5-8.0)
[2025-10-13 18:47] VITALS: PULSE 107; RESP 25; O2SAT 98
[2025-10-13 18:53] LABS: Troponin-I High Sensitivity 6.0 ng/L (<3.5-17.0)
[2025-10-13] MEDS: Albuterol Sulfate 2.5 MG, Albuterol/Iprat 2.5/0.5MG 3 ML 3 ML INHALE (18:53)
[2025-10-13 19:05] LABS: Resp Syncy Virus RNA Qual PCR NEGATIVE (Negative); SARS COV2 PCR INHOUSE NEGATIVE (Negative)
[2025-10-13 20:22] VITALS: BP 136/58; PULSE 105; RESP 18; TEMP 37.8; O2SAT 98
[2025-10-13 21:42] VITALS: BP 136/58; PULSE 105; RESP 18; TEMP 37.8; O2SAT 98
--- OUTSIDE RECORDS SUMMARY | 2025-10-13 23:34 | XMS_ITS | Data Portability ---
Author Organization [place] [facility] Address [address] [place] [address] Care Team Providers Care Beam Sealer Name Role Phone MARY JANE BENITES Primary Care Provider [phone] Assessment Encounter Date Assessment Date Assessment LastModified [...] view - Left Knee Pain [address] [place] [place] [address] [facility], [address], [place], [address], 3 09:31:12 XR, knee, 1 or 2 view - Right Knee Pain 2022 [address] [place] [address] [facility], [address], [place], [address], 3 09:31:12 XR, knee, weightbeari ng - Bilateral Knee Pain 2022 [address] [place] [address] [facility], [address], [place], [address], 3 09:31:12 Medication Orders Kenalog 40 mg/mL suspension for injection 2022 [address] [place] [address] [id number], [phone] [place], [address], 3 16:15:52 lidocaine (PF) 10 mg/mL (1 %) injection solution 2022 [address] [place] [address] [id number], [phone] [place], [address], 16:15:52 Kenalog 40 mg/mL suspension for injection 2022 023 [email or web address] Not available 12:38:24 lidocaine (PF) 10 mg/mL (1 %) injection solution 2022 023 [email or web address] Not available 12:38:24 Patient TargetsNo targets recorded. Patient InstructionsNo instructions recorded. Reason for Referral None Reported. Problems Name Problem SNOMED Code Status Onset Date Resolution Date Notes Provider Name and Address Organization Details Recorded Time Osteoarthri tis of right knee joint 3522313156751 00 Active 2022 JEANNA MCDONOUGH PA-C [address], [place], [address], [place] [facility], P 16:12:10 Osteoarthri tis of left knee joint 1251484517390 09 Active 2022 JEANNA MCDONOUGH PA-C [address], [place], [address], [place] [facility], P 3 16:12:15 Pain of bilateral knee joints 6844736460105 04 Active 2022 JEANNA MCDONOUGH PA-C [address], [place], [address], [place] [facility], P 3 08:20:44 Problem Notes None recorded. Procedures Surgical History Date Name Laterality Status Provider Name and Address Organization Details Recorded Time 05/28/2023 Knee Joint/Burs a Asp & Inj cancelled JEANNA MCDONOUGH PA-C [address], [place], [address], [place] [facility], P 05/28/2023 08:21:07 03/05/2023 Knee Joint/Burs a Asp & Inj completed JEANNA MCDONOUGH PA-C [address], [place], [address], [place] [facility], P 03/06/2023 16:14:28 Imaging Results None recorded. [...] active Not Available Not Available Not Available BrezNoRedInkphere 160 mcg-9mcg-4.8 mcg/actuatio n HFA aerosol inhaler INHALE 2 PUFFS INTO THE LUNGS TWICE A DAY active Not Available Not Available Not Available Vitals Date Recorded Body weight Body mass index (BMI) Body height Provider Name and Address Organization Details Last Updated DateTime 03/05/2023 971412.28 g 41.2 kg/m2 157.[address] [place] [facility], 03/05/2023 15:02:52 Social History None recorded. Functional [...] Diagnosis SNOMED-CT Code Diagnosis ICD10 Code Diagnosis IMO Codes Diagnosis Note 8[address] [address] 03/05/2023 14:39:35 03/05/2023 15:34:21 Pain of bilateral knee joints 4411087848 05784 M25.561 M25.562 Osteoarthr itis of right knee joint 8184282756 48442 M17.11 Osteoarthr itis of left knee joint 4653567573 91518 M17.12 Health Concerns Section Related Observation LastModified by Organization Detai ls LastModified Time None Recorded Concern Status LastModified by Organization Details LastModified Time None Recorded Advance Directives Directive None Recorded Payers Insurance Date Sequence Insurance Name Policy Number Policy Brice Covered Member ID Brice Member ID Guarantor Name 02/28/2023 1 [place] ([place]) [id number] Ryne Grant [id number] Ryne Grant Notes Date Note Type [...] anybody formally for her knees. She takes [id number]-qen-[id number] pain medication which gives her some relief. She describes her pain is medial nature that is worse with weightbearing, bending and certain movements. She denies any history of rheumatoid arthritis, gout, Lyme disease. She also denies any history of knee joint infections. JEANNA MCDONOUGH PA-C [address] [place] [address],[facility] [address], [place], [address], [place] [facility], [facility] 03/06/2023 16:15:55 OBGyn Episode No OBEpisode recorded.
--- OUTSIDE RECORDS SUMMARY | 2025-10-13 23:35 | XMS_ITS | Patient Health Record ---
Author Organization [facility] Address [address] [place] [address] Care Team Providers Care Tiger Machine Operator Name Role Phone TATI STEVENS Primary Care Provider [phone] Allergies No Known Allergies Reason For Referral [...] Status Risk Notes Problem Morbid obesity (disorder) (223778312) Morbid (severe) obesity due to excess calories (E66.01) Active confirmed Problem Obesity due to excess calories (338954811) Other obesity due to excess calories (E66.09) Active confirmed Problem Uncomplicated moderate persistent asthma (488573970) Moderate persistent asthma, uncomplicated (J45.40) Active confirmed Plan Of Treatment No Information Insurance Providers Payer Name Payer Address Payer Phone Subscriber Number Group Number Insured Name Patient Relationship to Insured Coverage Start Date Coverage End Date [facility] [address] [place] [address] [phone] [id number] Ryne Grant Self - patient is the insured Medical (General) History Medical History History ICD Code moderate, persistent asthma, Dr. Evie reveles osteoarthritis of bilateral knee joints, Dr. Gilbert SAMIRA Surgical History Surgery Date(Month/Year) tubal ligation
--- OUTSIDE RECORDS SUMMARY | 2025-10-13 23:35 | XMS_ITS | Clinical Summary ---
Author Organization [facility] Address [address] [place] [address] Phone Care Team Providers Care Farmworker Dairy Name Role Phone Bertrand Christianson MD Primary Care Provider [phone] Allergies No known active allergies Medications albuterol HFA (ProAir HFA) 90 mcg/actuation inhaler Inhale 2 puffs by mouth. 2 Active cetirizine (ZyrTEC) 10 mg tablet Take 1 tablet (10 mg total) by mouth. 3 Active cyclobenzaprine (FLEXERIL) 10 mg tablet Take 1 tablet (10 mg total) by mouth 3 (three) times a day if needed for muscle spasms. Active EPINEPHrine (EpiPen 2-Daniel) 0.3 mg/0.3 mL injection Inject 0.3 mL (0.3 mg total) as directed. 3 Active folic acid (FOLVITE) 1 mg tablet Take 1 tablet (1,000 mcg total) by mouth 1 (one) time each day. Active ipratropium-albuter oL (DUONEB) 0.5-2.5 mg/3 mL nebulizer solution Inhale 3 mL by mouth. 2 Active montelukast (Singulair) 10 mg tablet 1 [...] each day. 20 tablet 4 Active Immunizations Immunization Administration Dates Next Due PPD Test 12/07/2024, 3,08/24/2021,07/22/2012,06/02/2007,09/16/20 02 Surgical History Surgery Date Site/Laterality Comments OTHER SURGICAL HISTORY PROCEDURE: TX LIG/TRNSXJ FLP TUBE ABDL/VAG APPR UNI/BI TONSILLECTOMY ADENOIDECTOMY, BILATERAL MYRINGOTOMY AND TUBES PROCEDURE: TX TONSILLECTOMY & ADENOIDECTOMY <AGE 12 Medical History Medical History Date Comments Anxiety state, unspecified 11/19/2006 DX:An xiety state, unspecified Allergic conjunctivitis of both eyes 12/03/2017 DX:Allergic conjunctivitis of both eyes; COMMENT: Cat and dog Asthma 06/04/2007 DX:Asthma Chronic back pain 10/31/2006 DX:Chronic jolene k pain; COMMENT: IMO update Depressive disorder 11/19/2006 DX:Depressiv e disorder; COMMENT: seeing kelsey moeller [address] [place] [address] ph [phone] Heart palpitations 12/03/2017 DX:Heart palp [...] on file Sexual Orientation Not on file Last Filed Vital Signs Vital Sign Reading Time Taken Comments Blood Pressure 124/55 06/10/2025 6:28 PM EDT Pulse 76 06/10/2025 6:26 PM EDT Temperature 36.7 C (98.1 F) 06/10/2025 6:26 PM EDT Respiratory Rate 16 06/10/2025 6:26 PM EDT Oxygen Saturation 99% 06/10/2025 6:28 PM EDT Inhaled Oxygen Concentration - - Weight 61.2 kg (135 lb) 06/10/2025 6:26 PM EDT Height 157.5 cm (5' 2 ) 06/10/2025 6:26 PM EDT Body Mass Index 24.69 06/10/2025 6:26 PM EDT Plan of Treatment Health Maintenance Due Date Last Done Comments Breast Cancer Screening 1960 Colorectal Cancer Screening: Colonoscopy 1960 DTaP,Tdap,and Td Vaccines (1 - Tdap) 1979 Pneumococcal Vaccine: 50+ Years (1 of 2 - PCV) 1979 Cervical Cancer Screening: P ap Smear 1981 RSV Immunization Adult Patients (1 - Risk 50-74 years 1-dose series) 2010 Zoster Vaccines (1 of 2) 2010 Hepatitis C Screening 10/02/2022 Osteoporosis Screening (Bone Density Screening) 10/02/2022 Social Influencers of Health Screening 10/02/2022 Depression Screening 11/03/2024 Falls Risk Assessment 2025 COVID-19 Vaccine (3 - 2024-2 6 season) 2025 02/18/2022, 01/21/2022 Influenza Vaccine (#1) 2025 HIB Vaccines Aged [...] patient's age to complete this topic [place] [address] [place] [address] Care Teams Farmworker Dairy Relationship Specialty Start Date End Date Bertrand Christianson MD [address] [facility] [address] [place] [address] PCP - General Internal Medicine 12/05/24
[2025-10-14 10:28] LABS: Chlamydia pneumoniae PCR Not Detected (Not Detect.); Coronavirus 229E PCR Not Detected (Not Detect.); Coronavirus HKU1 PCR Not Detected (Not Detect.); Coronavirus NL63 PCR Not Detected (Not Detect.); Coronavirus OC43 PCR Not Detected (Not Detect.); RSV PCR Not Detected (Not Detect.); Rhino/Enterovirus PCR Not Detected (Not Detect.)
[2025-10-14 10:58] LABS: Influenza A H1 PCR Not Detected (Not Detect.); Influenza A H1-2009 PCR Not Detected (Not Detect.); Influenza A H3 PCR Not Detected (Not Detect.); SARS-CoV-2 PCR Not Detected (Not Detect.)
== END 2025-10-13 21:42 | disposition home or self-care (01) ==
PROVIDERS: Physician Assistant Medical; Emergency Provider Emergency Medicine; PCP Internal Medicine
DX: J45.41 Moderate persistent asthma with (acute) exacerbation (principal); R06.02 Shortness of breath; R53.1 Weakness; R05.9 Cough, unspecified; D83.8 Other common variable immunodeficiencies; Z79.899 Other long term (current) drug therapy; Z87.891 Personal history of nicotine dependence; Z03.818 Encounter for observation for suspected exposure to other biological agents ruled out
CPT/HCPCS: 71046; 80048; 80076; 84484; 85025; 86140; 87633; 87637; 93005; 94640; 99284

== ENCOUNTER → 2025-10-13 18:05 | Outpatient (BNV) | payer BC, SELFPAY | PROVIDERS: Emergency Provider Emergency Medicine; PCP Internal Medicine; Visit Provider Internal Medicine Cardiovascular Disease | DX: R06.00 Dyspnea, unspecified (principal) | CPT/HCPCS: 93010 ==

== ENCOUNTER → 2025-10-13 18:06 | Outpatient (BNV) | payer BC, SELFPAY | PROVIDERS: Emergency Provider Emergency Medicine; PCP Internal Medicine; Visit Provider Radiology Neuroradiology | DX: R05.9 Cough, unspecified (principal); R06.02 Shortness of breath | CPT/HCPCS: 71046 ==